=== PATIENT | female | born 1980 | race African-American/Black ===

== ENCOUNTER 2021-10-26 15:53 | Emergency (ER) | payer OTHER, SELFPAY ==
[2021-10-26 19:06] VITALS: BP 118/78; PULSE 97; RESP 18; TEMP 36.8; O2SAT 99; BMI 26.6
--- NOTE | 2021-10-26 21:50 | ED.EYEPROB ---
HPI - Eye Problem General Chief complaint: Eye Problems Stated complaint: r eye pain Time Seen by Provider: 10/26/21 17:24 Source: patient Mode of arrival: ambulatory Limitations: language barrier (Surinamese speaking only, court interpreter used) History of Present Illness HPI Narrative: 41-year-old female who presents emergency department for evaluation of right eye pain times 2 days. She states that she woke up yesterday with the pain in her right eye. She states that the eye was red. Today the redness got worse and the pain got worse. She also states that her vision is blurred. Patient does wear soft contact that she states that occasionally she worsen for greater than 24 hours. She denies any injury to her eye. She denied fever, chills, chest pain, shortness of breath, nausea, vomiting, headache. Related Data Previous Rx's Medication Instructions Recorded ciprofloxacin HCl 0.3 % eye drops 2 drp OPHTHALMIC (EYE) Q4H #5 ml 10/26/21 Allergies Allergy/AdvReac Type Severity Reaction Status Date / Time No Known Allergies Allergy Unverified 10/26/21 19:09 [No Known Allergies*] Review of Systems Review of Systems: Yes all other systems are reviewed and are negative [facility] Past Medical History [facility] Narrative: Past medical history: None. Past surgical history: Bilateral tubal ligation. Social history: She denies tobacco use, she occasionally drinks alcohol, she denies drug use. Medical History No known health problems Social History Social History Advance Directives: No Patient : No Physical Exam Vital Signs: Vital Signs: Last Vital Signs Temp 98.3 F 10/26/21 19:06 Pulse 97 10/26/21 19:06 Resp 18 10/26/21 19:06 BP 118/78 10/26/21 19:06 Pulse Ox 99 10/26/21 19:06 BMI result Body Mass Index 26.6 Const: Other: Uncomfortable secondary to right eye pain, cues right eye close General: cooperative and healthy appearing Orientation/consciousness: oriented to person Limitations: no limitations HENMT: Head: Yes normal to inspection, Yes normocephalic and Yes atraumatic Ears: external ears normal General nose exam: Normal external nose present Face and sinus: Yes normal facial exam Mouth: Normal oral and palatal mucosa present Teeth and gingiva: dentition normal Throat: Yes posterior oropharynx normal Eyes: Other: Pupils are equal round reactive to light, right sclera and conjunctiva are injected, no obvious foreign body seen on the patient's cornea with visual inspection and using a magnifying lens. Fluorescein dye was applied to the right eye in the patient had no obvious corneal abrasion that I could see using the magnifying lens. The patient's interocular pressures were 13 on the right eye and 11 on the left eye. EOM: EOMs intact bilaterally Neck: Neck: Yes normal visual inspection, Yes no lymphadenopathy, Yes no meningeal signs, Yes trachea midline and Yes supple Resp: Effort & Inspection: normal respiratory effort Neuro: General: oriented to person and no meningeal signs Cranial nerves: Yes CN's II-XII intact bilaterally Psych: Appearance: grossly normal Mental Status: mental status grossly normal Speech and movement: Normal speech and movement present Course Course Course Narrative: 41-year-old female who presents emergency department for evaluation right eye pain x2 days with redness of the right eye. The patient does not have any reported trauma to the eye but she does wear soft contact lenses and states sometime she wears them for greater than 24 hours. The patient's right eye did reveal injected sclera and conjunctiva. The visual inspection and inspection with a magnifying lens did not reveal any clear corneal abrasion or foreign body. Fluorescein dye did not reveal any increased uptake on the cornea. Interocular pressures were normal in both eyes. Visual acuities were unremarkable with correction. Patient most likely has injury to her cornea from wearing her contact lenses to long. She did get relief of her pain with tetracaine eyedrops to the right eye. Patient's pain was treated with Tylenol 975 mg orally and ibuprofen 600 mg orally. She was advised to keep her contacts out for 1 week and to follow-up with her eye doctor for re-evaluation in 2 days. She was given ciprofloxacin ophthalmic solution 0.3% 2 drops to the right eye 4 times a day for 7 days prophylactically to prevent infection. Discharge Plan Discharge Clinical Impression: Corneal abrasion Qualifiers: Encounter type: initial encounter Laterality: right Qualified Code(s): S05.01XA - Injury of conjunctiva and corneal abrasion without foreign body, right eye, initial encounter Patient Disposition: Home, Self-Care Instructions: Corneal Abrasion (ED) Additional Instructions: Your presentation is consistent with a corneal abrasion to your right eye most likely from wearing her contacts too long. Do not wear your contacts for 1 week. Use the ciprofloxacin ophthalmological drops 0.3%, 2 drops 4 every 4 hours while awake for 1 week to the right eye. Take ibuprofen 200 mg pills, 3 pills every 6 hours as needed for pain. Take Tylenol (acetaminophen) 500 mg pills, 2 pills every 4 to 6 hours as needed for pain. Follow-up with the eye doctor that gives you glasses and contacts for re-evaluation in 2 days to make sure that your corneal abrasion is improving and not getting worse. Please return to the emergency department if your symptoms get worse or if you develop any symptoms that are concerning to you. Prescriptions: New ciprofloxacin HCl 0.3 % drops 2 drp ophthalmic (eye) Q4H Qty: 5 RF: 0 Print Language: Surinamese
[2021-10-26] MEDS: Acetaminophen 325 MG TABLET 975 MG PO (22:20)
[2021-10-26] MEDS: Ibuprofen 600 MG TABLET PO (22:20)
[2021-10-26] MEDS: Tetracaine HCl/PF 0.5% Oph Sol 4 ML DROPS 3 DROP EYE-RIGHT (22:21)
[2021-10-26] MEDS: Fluorescein Sodium STRIP 1 STRIP EYE-BOTH (22:22)
== END 2021-10-26 22:59 | disposition home or self-care (01) ==
PROVIDERS: Emergency Provider Emergency Medicine Emergency Medical Services
DX: S05.91XA Unspecified injury of right eye and orbit, initial encounter (principal); X58.XXXA Exposure to other specified factors, initial encounter; Y93.9 Activity, unspecified; Y92.9 Unspecified place or not applicable; Y99.9 Unspecified external cause status
CPT/HCPCS: 99283

== ENCOUNTER 2023-01-28 21:44 | Emergency (ER) | payer OTHER, SELFPAY ==
[2023-01-28 22:02] VITALS: BP 123/78; PULSE 101; RESP 18; TEMP 36.8; O2SAT 100; BMI 26.6
--- NOTE | 2023-01-28 22:20 | ED_ITS ---
HPI - Psych General Chief Complaint: Psychiatric Symptoms <Micaela Alcocer MD - Last Filed: 01/28/23 22:23> Stated Complaint: Crisis <Micaela Alcocer MD - Last Filed: 01/28/23 22:23> Time Seen by Provider: 01/28/23 22:06 <Micaela Alcocer MD - Last Filed: 01/28/23 22:23> Source: patient <Micaela Alcocer MD - Last Filed: 01/28/23 22:23> Mode of arrival: ambulatory <Micaela Alcocer MD - Last Filed: 01/28/23 22:23> Limitations: no limitations <Micaela Alcocer MD - Last Filed: 01/28/23 22:23> History of Present Illness HPI Narrative: Patient comes in the emergency room complaining of depression. Patient states that she has had significant depression for approximately 2 months. Patient states that she started a new job at [employer], states that she does n ot know how to cope with certain situations at work. It was too stressful for her and she resigned recently. Patient had an appointment earlier today in the community, patient came voluntarily for an inpatient bed search. Patient complaining of suicidal thoughts, has considered overdosing with previous medications that she has been prescribed, no homicidal ideation. <Micaela Alcocer MD - Last Filed: 01/28/23 22:23> Related Data Home Medications: Home Medications Medication Instructions Recorded Confirmed No Known Home Meds 01/28/23 01/28/23 <Micaela Alcocer MD - Last Filed: 01/28/23 22:23> Allergies/Adverse Reactions: Allergies Allergy/AdvReac Type Severity Reaction Status Date / Time No Known Allergies Allergy Unverified 10/26/21 19:09 [No Known Allergies*] <Micaela Alcocer MD - Last Filed: 01/28/23 22:23> Review of Systems Review of Systems: Constitutional : No Weight loss, No Fever, No Chills, No Night Sweats, No Fatigue, No Malaise ENT/Mouth : No Hearing loss, No Ear Pain, No Nasal Congestion, No Sinus Pain, No Hoarseness, No sore throat, No Rhinorrhea, No Swallowing Difficulty Eyes: No Eye Pain, No Swelling, No Redness, No Foreign Body, No Discharge, No Vision Changes Cardiovascular : No Chest Pain, No SOB, No Dyspnea on Exertion, No Orthopnea, No Edema, No Palpitations Respiratory : No Cough, No Sputum, No Wheezing, No Smoke Exposure, No Dyspnea Gastrointestinal : No Nausea, No Vomiting, No Diarrhea, No Constipation, No abdominal Pain, No Hematochezia, No Melena Genitourinary : no irregular bleeding, No Dysuria, No Urinary Frequency, No Hematuria, No Urinary Incontinence, No Urgency, No Flank Pain, No Urinary Flow Changes, No Hesitancy Musculoskeletal : No joint pain, No Myalgias, No Joint Swelling Skin : No Skin Lesions, No rash Neuro : No Weakness, No Numbness, No Paresthesias, No Loss of Consciousness, No Dizziness, No Headache Psych : Complaining of depression, suicidal ideation, no homicidal ideation Heme/Lymph: No Bruising, No Bleeding,No Lymphadenopathy Endocrine : No Polyuria, No Polydipsia, No Temperature Intolerance <Micaela Alcocer MD - Last Filed: 01/28/23 22:23> [facility], [facility] Past Medical History Medical History: Medical History No known health problems <Micaela Alcocer MD - Last Filed: 01/28/23 22:23> Social History Social History: Social History Advance Directives: No Advance Directives Information Provided: No Healthcare Proxy: No Guardian: No <Micaela Alcocer MD - Last Filed: 01/28/23 22:23> Physical Exam Vital Signs: Vital Signs: Last Vital Signs Temp 98.1 F 01/29/23 14:58 Pulse 105 H 01/29/23 14:58 Resp 16 01/29/23 14:58 BP 102/68 01/29/23 14:58 Pulse Ox 98 01/29/23 14:58 O2 Del Method Room Air 01/29/23 14:58 BMI result Body Mass Index 26.6 <Micaela Alcocer MD - Last Filed: 01/28/23 22:23> Vital Signs: Last Vital Signs Temp 98.1 F 01/29/23 14:58 Pulse 105 H 01/29/23 14:58 Resp 16 01/29/23 14:58 BP 102/68 01/29/23 14:58 Pulse Ox 98 01/29/23 14:58 O2 Del Method Room Air 01/29/23 14:58 BMI result Body Mass Index 26.6 <Chaparrita Aragon MD - Last Filed: 01/29/23 16:55> Const: Other: Appearance: Alert. Oriented X3. No acute distress. Eyes: Pupils equal, round and reactive to light. ENT: Pharynx normal. Neck: Normal inspection. Neck supple. No lymph nodes noted. No crepitus CVS: Normal heart rate and rhythm. Pulses normal. Normal S1 and S2 Respiratory: No respiratory distress. Breath sounds normal. No Wheezing. No rales Abdomen: Soft and nontender. No rigidity. No distention. Skin: Skin warm and dry. Normal skin color. Normal skin turgor. Extremities: No lower extremity edema. No Lacerations. No Rash Neuro: Oriented X 3. No motor deficit. No sensory deficit. Moving all extremities. No slurred speech. CN 2 through 12 grossly intact Psych: calm, cooperative, flat affect <Micaela Alcocer MD - Last Filed: 01/28/23 22:23> Course Course Course Narrative: -basic labs pending -care team consult pending, per patient's nurse, seems that it has been arranged for the patient to be admitted when a bed becomes available, voluntary bed search, patient on a Section 12 -physician observation started at 12:22 <Micaela Alcocer MD - Last Filed: 01/28/23 22:23> Reevaluation(s) Reevaluation #1: Informed by staff that patient is now complaining of chest pain, I reviewed all investigations and I have not identified either risk factors for cause for patient's current symptoms. Will proceed with EKG but otherwise feel this may be related with anxiety. <Chaparrita Aragon MD - Last Filed: 01/29/23 16:55> Time: 16:45 <Chaparrita Aragon MD - Last Filed: 01/29/23 16:55> Reevaluation #2: I reviewed the EKG: Normal sinus rhythm, HR-89, no STEMI, NE/QRS/QTC is within normal limits. Patient is otherwise hemodynamically stable for transfer to [facility]. <Chaparrita Aragon MD - Last Filed: 01/29/23 16:55> Time: 16:54 <Chaparrita Aragon MD - Last Filed: 01/29/23 16:55> Medical Decision Making Lab Data Result Diagrams: 01/28/23 22:32 01/28/23 22:32 <Micaela Alcocer MD - Last Filed: 01/28/23 22:23> Labs: Lab Results 01/28/23 01/28/23 01/28/23 Range/Units 22:18 22:18 22:18 WBC (4.8-10.8) X10*3/uL RBC (4.20-5.50) X10*6/uL Hgb (12.0-16.0) g/dl Hct (37.0-47.0) % MCV (80.0-98.0) fL MCH (27.0-33.0) pg MCHC (31.0-35.0) g/dl RDW (11.0-16.0) % Plt Count (160-400) X10*3/uL MPV (9.4-12.3) fL Immature Gran % (Auto) (0.0-0.4) % Neut % (Auto) (45-73) % Lymph % (Auto) (20-40) % [place] % (Auto) (2-11) % Eos % (Auto) (0-4) % Baso % (Auto) (0-2) % Lymph # (Auto) (1.2-4.9) X10*3/uL [place] # (Auto) (0.1-1.2) X10*3/uL Eos # (Auto) (0.0-0.4) X10*3/uL Baso # (Auto) (0.0-0.2) X10*3/uL Abs Immat Gran (auto) (0.00-0.03) X10*3/uL Absolute Neuts (auto) (2.0-8.3) x10*3/uL Absolute Nucleated RBC (0.0-0.012) X10*3/uL Nucleated RBC % (auto) (0.0-0.2) /100WBC Sodium (135-145) mmol/L Potassium (3.3-5.1) mmol/L Chloride (96-108) mmol/L Carbon Dioxide (22-29) mmol/L Anion Gap (12-20) BUN (9-16) mg/dL Creatinine (0.5-1.4) mg/dL Estim Creat Clear Calc Estimated GFR Random Glucose (60-115) mg/dL Calcium (8.4-10.2) mg/dL Total Bilirubin (0.0-1.0) mg/dL AST (5-31) U/L ALT (0-31) U/L Alkaline Phosphatase (39-117) U/L Total Protein (6.5-8.0) g/dL Albumin (3.5-5.0) g/dL Urine Color Yellow Urine Appearance Clear Urine pH 5.5 (5.0-9.0) Ur Specific [place] 1.025 (1.005-1.025) Urine Protein Negative (Neg-Trace) mg/dL Urine Glucose (UA) Negative (Negative) mg/dL Urine Ketones Negative (Negative) mg/dL Urine Blood Negative (Negative) Urine Nitrite Negative (Negative) Ur Leukocyte Esterase Negative (Negative) Urine Test (NEGATIVE) Salicylates (15-30) mg/dL Urine Opiates Screen Not Detected (Not Detect) Urine Fentanyl Screen Not Detected (Not Detect) Acetaminophen (<30) mcg/mL Ur Barbiturates Screen Not Detected (Not Detect) Ur Phencyclidine Scrn Not Detected (Not Detect) Ur Amphetamines Screen Not Detected (Not Detect) U Benzodiazepines Scrn POSITIVE H (Not Detect) Urine Cocaine Screen Not Detected (Not Detect) U Marijuana (THC) Screen Not Detected (Not Detect) Ethyl Alcohol mg/dL COVID-19 ([facility]) Negative (Negative) COVID-19 Clin Com See Note 01/28/23 01/28/23 01/28/23 Range/Units 22:18 22:32 22:32 WBC 6.3 (4.8-10.8) X10*3/uL RBC 5.51 H (4.20-5.50) X10*6/uL Hgb 13.3 (12.0-16.0) g/dl Hct 41.1 (37.0-47.0) % MCV 74.6 L (80.0-98.0) fL MCH 24.1 L (27.0-33.0) pg MCHC 32.4 (31.0-35.0) g/dl RDW 14.3 (11.0-16.0) % Plt Count 306 (160-400) X10*3/uL MPV 9.6 (9.4-12.3) fL Immature Gran % (Auto) 0.3 (0.0-0.4) % Neut % (Auto) 53.9 (45-73) % Lymph % (Auto) 34.5 (20-40) % [place] % (Auto) 7.8 (2-11) % Eos % (Auto) 2.1 (0-4) % Baso % (Auto) 1.4 (0-2) % Lymph # (Auto) 2.2 (1.2-4.9) X10*3/uL [place] # (Auto) 0.5 (0.1-1.2) X10*3/uL Eos # (Auto) 0.1 (0.0-0.4) X10*3/uL Baso # (Auto) 0.1 (0.0-0.2) X10*3/uL Abs Immat Gran (auto) 0.02 (0.00-0.03) X10*3/uL Absolute Neuts (auto) 3.4 (2.0-8.3) x10*3/uL Absolute Nucleated RBC 0.000 (0.0-0.012) X10*3/uL Nucleated RBC % (auto) 0.0 (0.0-0.2) /100WBC Sodium 142 (135-145) mmol/L Potassium 3.4 (3.3-5.1) mmol/L Chloride 109 H (96-108) mmol/L Carbon Dioxide 22 (22-29) mmol/L Anion Gap 14 (12-20) BUN 10 (9-16) mg/dL Creatinine 0.90 (0.5-1.4) mg/dL Estim Creat Clear Calc 79.1 Estimated GFR > 60 Random Glucose 144 H (60-115) mg/dL Calcium 9.6 (8.4-10.2) mg/dL Total Bilirubin 0.3 (0.0-1.0) mg/dL AST 16 (5-31) U/L ALT 10 (0-31) U/L Alkaline Phosphatase 44 (39-117) U/L Total Protein 7.5 (6.5-8.0) g/dL Albumin 4.4 (3.5-5.0) g/dL Urine Color Urine Appearance Urine pH (5.0-9.0) Ur Specific [place] (1.005-1.025) Urine Protein (Neg-Trace) mg/dL Urine Glucose (UA) (Negative) mg/dL Urine Ketones (Negative) mg/dL Urine Blood (Negative) Urine Nitrite (Negative) Ur Leukocyte Esterase (Negative) Urine Test NEGATIVE (NEGATIVE) Salicylates (15-30) mg/dL Urine Opiates Screen (Not Detect) Urine Fentanyl Screen (Not Detect) Acetaminophen (<30) mcg/mL Ur Barbiturates Screen (Not Detect) Ur Phencyclidine Scrn (Not Detect) Ur Amphetamines Screen (Not Detect) U Benzodiazepines Scrn (Not Detect) Urine Cocaine Screen (Not Detect) U Marijuana (THC) Screen (Not Detect) Ethyl Alcohol mg/dL COVID-19 ([facility]) (Negative) COVID-19 Clin Com 01/28/23 01/28/23 Range/Units 22:32 22:32 WBC (4.8-10.8) X10*3/uL RBC (4.20-5.50) X10*6/uL Hgb (12.0-16.0) g/dl Hct (37.0-47.0) % MCV (80.0-98.0) fL MCH (27.0-33.0) pg MCHC (31.0-35.0) g/dl RDW (11.0-16.0) % Plt Count (160-400) X10*3/uL MPV (9.4-12.3) fL Immature Gran % (Auto) (0.0-0.4) % Neut % (Auto) (45-73) % Lymph % (Auto) (20-40) % [place] % (Auto) (2-11) % Eos % (Auto) (0-4) % Baso % (Auto) (0-2) % Lymph # (Auto) (1.2-4.9) X10*3/uL [place] # (Auto) (0.1-1.2) X10*3/uL Eos # (Auto) (0.0-0.4) X10*3/uL Baso # (Auto) (0.0-0.2) X10*3/uL Abs Immat Gran (auto) (0.00-0.03) X10*3/uL Absolute Neuts (auto) (2.0-8.3) x10*3/uL Absolute Nucleated RBC (0.0-0.012) X10*3/uL Nucleated RBC % (auto) (0.0-0.2) /100WBC Sodium (135-145) mmol/L Potassium (3.3-5.1) mmol/L Chloride (96-108) mmol/L Carbon Dioxide (22-29) mmol/L Anion Gap (12-20) BUN (9-16) mg/dL Creatinine (0.5-1.4) mg/dL Estim Creat Clear Calc Estimated GFR Random Glucose (60-115) mg/dL Calcium (8.4-10.2) mg/dL Total Bilirubin (0.0-1.0) mg/dL AST (5-31) U/L ALT (0-31) U/L Alkaline Phosphatase (39-117) U/L Total Protein (6.5-8.0) g/dL Albumin (3.5-5.0) g/dL Urine Color Urine Appearance Urine pH (5.0-9.0) Ur Specific [place] (1.005-1.025) Urine Protein (Neg-Trace) mg/dL Urine Glucose (UA) (Negative) mg/dL Urine Ketones (Negative) mg/dL Urine Blood (Negative) Urine Nitrite (Negative) Ur Leukocyte Esterase (Negative) Urine Test (NEGATIVE) Salicylates < 5.0 L (15-30) mg/dL Urine Opiates Screen (Not Detect) Urine Fentanyl Screen (Not Detect) Acetaminophen < 17 (<30) mcg/mL Ur Barbiturates Screen (Not Detect) Ur Phencyclidine Scrn (Not Detect) Ur Amphetamines Screen (Not Detect) U Benzodiazepines Scrn (Not Detect) Urine Cocaine Screen (Not Detect) U Marijuana (THC) Screen (Not Detect) Ethyl Alcohol < 10 mg/dL COVID-19 ([facility]) (Negative) COVID-19 Clin Com <Micaela Alcocer MD - Last Filed: 01/28/23 22:23> Lab Results 01/28/23 01/28/23 01/28/23 Range/Units 22:18 22:18 22:18 WBC (4.8-10.8) X10*3/uL RBC (4.20-5.50) X10*6/uL Hgb (12.0-16.0) g/dl Hct (37.0-47.0) % MCV (80.0-98.0) fL MCH (27.0-33.0) pg MCHC (31.0-35.0) g/dl RDW (11.0-16.0) % Plt Count (160-400) X10*3/uL MPV (9.4-12.3) fL Immature Gran % (Auto) (0.0-0.4) % Neut % (Auto) (45-73) % Lymph % (Auto) (20-40) % [place] % (Auto) (2-11) % Eos % (Auto) (0-4) % Baso % (Auto) (0-2) % Lymph # (Auto) (1.2-4.9) X10*3/uL [place] # (Auto) (0.1-1.2) X10*3/uL Eos # (Auto) (0.0-0.4) X10*3/uL Baso # (Auto) (0.0-0.2) X10*3/uL Abs Immat Gran (auto) (0.00-0.03) X10*3/uL Absolute Neuts (auto) (2.0-8.3) x10*3/uL Absolute Nucleated RBC (0.0-0.012) X10*3/uL Nucleated RBC % (auto) (0.0-0.2) /100WBC Sodium (135-145) mmol/L Potassium (3.3-5.1) mmol/L Chloride (96-108) mmol/L Carbon Dioxide (22-29) mmol/L Anion Gap (12-20) BUN (9-16) mg/dL Creatinine (0.5-1.4) mg/dL Estim Creat Clear Calc Estimated GFR Random Glucose (60-115) mg/dL Calcium (8.4-10.2) mg/dL Total Bilirubin (0.0-1.0) mg/dL AST (5-31) U/L ALT (0-31) U/L Alkaline Phosphatase (39-117) U/L Total Protein (6.5-8.0) g/dL Albumin (3.5-5.0) g/dL Urine Color Yellow Urine Appearance Clear Urine pH 5.5 (5.0-9.0) Ur Specific [place] 1.025 (1.005-1.025) Urine Protein Negative (Neg-Trace) mg/dL Urine Glucose (UA) Negative (Negative) mg/dL Urine Ketones Negative (Negative) mg/dL Urine Blood Negative (Negative) Urine Nitrite Negative (Negative) Ur Leukocyte Esterase Negative (Negative) Urine Test (NEGATIVE) Salicylates (15-30) mg/dL Urine Opiates Screen Not Detected (Not Detect) Urine Fentanyl Screen Not Detected (Not Detect) Acetaminophen (<30) mcg/mL Ur Barbiturates Screen Not Detected (Not Detect) Ur Phencyclidine Scrn Not Detected (Not Detect) Ur Amphetamines Screen Not Detected (Not Detect) U Benzodiazepines Scrn POSITIVE H (Not Detect) Urine Cocaine Screen Not Detected (Not Detect) U Marijuana (THC) Screen Not Detected (Not Detect) Ethyl Alcohol mg/dL COVID-19 ([facility]) Negative (Negative) COVID-19 Clin Com See Note 01/28/23 01/28/23 01/28/23 Range/Units 22:18 22:32 22:32 WBC 6.3 (4.8-10.8) X10*3/uL RBC 5.51 H (4.20-5.50) X10*6/uL Hgb 13.3 (12.0-16.0) g/dl Hct 41.1 (37.0-47.0) % MCV 74.6 L (80.0-98.0) fL MCH 24.1 L (27.0-33.0) pg MCHC 32.4 (31.0-35.0) g/dl RDW 14.3 (11.0-16.0) % Plt Count 306 (160-400) X10*3/uL MPV 9.6 (9.4-12.3) fL Immature Gran % (Auto) 0.3 (0.0-0.4) % Neut % (Auto) 53.9 (45-73) % Lymph % (Auto) 34.5 (20-40) % [place] % (Auto) 7.8 (2-11) % Eos % (Auto) 2.1 (0-4) % Baso % (Auto) 1.4 (0-2) % Lymph # (Auto) 2.2 (1.2-4.9) X10*3/uL [place] # (Auto) 0.5 (0.1-1.2) X10*3/uL Eos # (Auto) 0.1 (0.0-0.4) X10*3/uL Baso # (Auto) 0.1 (0.0-0.2) X10*3/uL Abs Immat Gran (auto) 0.02 (0.00-0.03) X10*3/uL Absolute Neuts (auto) 3.4 (2.0-8.3) x10*3/uL Absolute Nucleated RBC 0.000 (0.0-0.012) X10*3/uL Nucleated RBC % (auto) 0.0 (0.0-0.2) /100WBC Sodium 142 (135-145) mmol/L Potassium 3.4 (3.3-5.1) mmol/L Chloride 109 H (96-108) mmol/L Carbon Dioxide 22 (22-29) mmol/L Anion Gap 14 (12-20) BUN 10 (9-16) mg/dL Creatinine 0.90 (0.5-1.4) mg/dL Estim Creat Clear Calc 79.1 Estimated GFR > 60 Random Glucose 144 H (60-115) mg/dL Calcium 9.6 (8.4-10.2) mg/dL Total Bilirubin 0.3 (0.0-1.0) mg/dL AST 16 (5-31) U/L ALT 10 (0-31) U/L Alkaline Phosphatase 44 (39-117) U/L Total Protein 7.5 (6.5-8.0) g/dL Albumin 4.4 (3.5-5.0) g/dL Urine Color Urine Appearance Urine pH (5.0-9.0) Ur Specific [place] (1.005-1.025) Urine Protein (Neg-Trace) mg/dL Urine Glucose (UA) (Negative) mg/dL Urine Ketones (Negative) mg/dL Urine Blood (Negative) Urine Nitrite (Negative) Ur Leukocyte Esterase (Negative) Urine Test NEGATIVE (NEGATIVE) Salicylates (15-30) mg/dL Urine Opiates Screen (Not Detect) Urine Fentanyl Screen (Not Detect) Acetaminophen (<30) mcg/mL Ur Barbiturates Screen (Not Detect) Ur Phencyclidine Scrn (Not Detect) Ur Amphetamines Screen (Not Detect) U Benzodiazepines Scrn (Not Detect) Urine Cocaine Screen (Not Detect) U Marijuana (THC) Screen (Not Detect) Ethyl Alcohol mg/dL COVID-19 ([facility]) (Negative) COVID-19 Clin Com 01/28/23 01/28/23 Range/Units 22:32 22:32 WBC (4.8-10.8) X10*3/uL RBC (4.20-5.50) X10*6/uL Hgb (12.0-16.0) g/dl Hct (37.0-47.0) % MCV (80.0-98.0) fL MCH (27.0-33.0) pg MCHC (31.0-35.0) g/dl RDW (11.0-16.0) % Plt Count (160-400) X10*3/uL MPV (9.4-12.3) fL Immature Gran % (Auto) (0.0-0.4) % Neut % (Auto) (45-73) % Lymph % (Auto) (20-40) % [place] % (Auto) (2-11) % Eos % (Auto) (0-4) % Baso % (Auto) (0-2) % Lymph # (Auto) (1.2-4.9) X10*3/uL [place] # (Auto) (0.1-1.2) X10*3/uL Eos # (Auto) (0.0-0.4) X10*3/uL Baso # (Auto) (0.0-0.2) X10*3/uL Abs Immat Gran (auto) (0.00-0.03) X10*3/uL Absolute Neuts (auto) (2.0-8.3) x10*3/uL Absolute Nucleated RBC (0.0-0.012) X10*3/uL Nucleated RBC % (auto) (0.0-0.2) /100WBC Sodium (135-145) mmol/L Potassium (3.3-5.1) mmol/L Chloride (96-108) mmol/L Carbon Dioxide (22-29) mmol/L Anion Gap (12-20) BUN (9-16) mg/dL Creatinine (0.5-1.4) mg/dL Estim Creat Clear Calc Estimated GFR Random Glucose (60-115) mg/dL Calcium (8.4-10.2) mg/dL Total Bilirubin (0.0-1.0) mg/dL AST (5-31) U/L ALT (0-31) U/L Alkaline Phosphatase (39-117) U/L Total Protein (6.5-8.0) g/dL Albumin (3.5-5.0) g/dL Urine Color Urine Appearance Urine pH (5.0-9.0) Ur Specific [place] (1.005-1.025) Urine Protein (Neg-Trace) mg/dL Urine Glucose (UA) (Negative) mg/dL Urine Ketones (Negative) mg/dL Urine Blood (Negative) Urine Nitrite (Negative) Ur Leukocyte Esterase (Negative) Urine Test (NEGATIVE) Salicylates < 5.0 L (15-30) mg/dL Urine Opiates Screen (Not Detect) Urine Fentanyl Screen (Not Detect) Acetaminophen < 17 (<30) mcg/mL Ur Barbiturates Screen (Not Detect) Ur Phencyclidine Scrn (Not Detect) Ur Amphetamines Screen (Not Detect) U Benzodiazepines Scrn (Not Detect) Urine Cocaine Screen (Not Detect) U Marijuana (THC) Screen (Not Detect) Ethyl Alcohol < 10 mg/dL COVID-19 ([facility]) (Negative) COVID-19 Clin Com <Chaparrita Aragon MD - Last Filed: 01/29/23 16:55> Discharge Plan Discharge Clinical Impression: Depression <Micaela Alcocer MD - Last Filed: 01/28/23 22:23> Patient Disposition: Xfer Other <Micaela Alcocer MD - Last Filed: 01/28/23 22:23> Instructions: Depression (ED) <Micaela Alcocer MD - Last Filed: 01/28/23 22:23> Additional Instructions: Please return to the ER for any worsening symptoms. <Micaela Alcocer MD - Last Filed: 01/28/23 22:23> Prescriptions: No Action No Known Home Meds <Micaela Alcocer MD - Last Filed: 01/28/23 22:23> Interventions: [place]-Suicide Risk Severity Scale Last Done: 01/29/23 14:36 <Micaela Alcocer MD - Last Filed: 01/28/23 22:23>
[2023-01-28 22:29] LABS: UPreg QC Valid YES; Urine Pregnancy NEGATIVE (NEGATIVE)
[2023-01-28 22:31] LABS: Appearance Urine Clear; Color Urine Yellow; Glucose Urine UA Negative (Negative); Leukocyte Esterase Urine Negative (Negative); Nitrite Urine Negative (Negative); PH 5.5 (5.0-9.0); Specific Gravity - Urine 1.025 (1.005-1.025); Urine Blood Negative (Negative); Urine Ketones Negative (Negative); Urine Protein Negative (Neg-Trace)
[2023-01-28 22:37] LABS: MANUAL DIFF FLAG NO
[2023-01-28 22:39] LABS: Basophils Absolute Auto 0.1 X10*3/uL (0.0-0.2); Basophils Percent Auto 1.4 % (0-2); Eosinophils Absolute Auto 0.1 X10*3/uL (0.0-0.4); Eosinophils Percent Auto 2.1 % (0-4); Hematocrit 41.1 % (37.0-47.0); Hemoglobin 13.3 g/dl (12.0-16.0); Imm Gran Abs Auto 0.02 X10*3/uL (0.00-0.03); Imm Gran Pct Auto 0.3 % (0.0-0.4); Lymphocytes Absolute Auto 2.2 X10*3/uL (1.2-4.9); Lymphocytes Percent Auto 34.5 % (20-40); Mean Corpuscular HGB Conc 32.4 g/dl (31.0-35.0); Mean Corpuscular Hemoglobin 24.1 pg (27.0-33.0); Mean Corpuscular Volume 74.6 fL (80.0-98.0); Mean Platelet Volume 9.6 fL (9.4-12.3); Monocytes Absolute Auto 0.5 X10*3/uL (0.1-1.2); Monocytes Percent Auto 7.8 % (2-11); Neutrophils Absolute Auto 3.4 x10*3/uL (2.0-8.3); Neutrophils Percent Auto 53.9 % (45-73); Platelet Count 306 X10*3/uL (160-400); Red Blood Count 5.51 X10*6/uL (4.20-5.50); Red Cell Distribution Width 14.3 % (11.0-16.0); White Blood Count 6.3 X10*3/uL (4.8-10.8)
[2023-01-28 22:39] LABS: Amphetamine Screen Urine Not Detected (Not Detect); Barbiturates, Urine Not Detected (Not Detect); Benzodiazepines Screen Urine POSITIVE (Not Detect); Cannabinoid Screen Urine Not Detected (Not Detect); Cocaine Screen Urine Not Detected (Not Detect); Fentanyl, urine Not Detected (Not Detect); Opiate Screen Urine Not Detected (Not Detect); Phencyclidine Screen Urine Not Detected (Not Detect)
[2023-01-28 22:42] LABS: COVID-19 Test Negative (Negative); IDNOW Serial# 55D5AD1C
[2023-01-28 22:52] LABS: Ethanol < 10 mg/dL
[2023-01-28 22:55] LABS: Alanine Aminotransferase 10 U/L (0-31); Albumin Level 4.4 g/dL (3.5-5.0); Alkaline Phosphatase 44 U/L (39-117); Anion Gap 14 (12-20); Aspartate Amino Transferase 16 U/L (5-31); Bilirubin Total 0.3 mg/dL (0.0-1.0); Blood Urea Nitrogen 10 mg/dL (9-16); Calcium 9.6 mg/dL (8.4-10.2); Carbon Dioxide 22 mmol/L (22-29); Chloride 109 mmol/L (96-108); Creatinine Clr Calc Pharmacy 79.1; Estimated Glomerular Filt Rate > 60; Glucose Random 144 mg/dL (60-115); Potassium 3.4 mmol/L (3.3-5.1); Sodium 142 mmol/L (135-145); Total Protein 7.5 g/dL (6.5-8.0)
[2023-01-28 22:57] LABS: Acetaminophen LAB < 17 mcg/mL (<30); Salicylate < 5.0 mg/dL (15-30)
--- NOTE | 2023-01-29 01:13 | PC.NURSE ---
Patient is in bed appears sleeping, no distress observed/reported, behavior non concerning, med rec completed/patient is currently not on any home medication, disposition per [facility] is voluntary inpatient search, VSS, will continue to monitor.
[2023-01-29 03:56] VITALS: BP 106/83; PULSE 91; RESP 15; TEMP 36.4; O2SAT 100
--- NOTE | 2023-01-29 14:56 | MHC.CARE ---
Pt was accepted for [facility] inpt unit for admission today. Facility will call to complete N2N & would like pt to arrive @1700. [facility] [address] [place] [id number] Carleen Patino Accepting Unit is [address] [place] [address]
[2023-01-29 14:58] VITALS: BP 102/68; PULSE 105; RESP 16; TEMP 36.7; O2SAT 98
--- NOTE | 2023-01-29 15:04 | PC.NURSE ---
patient primarily tamazight speaking. calm and cooperative with staff. report called to Stu MARRERO.
--- NOTE | 2023-01-29 16:37 | ECG_ITS ---
Test Reason : CHEST PAIN Blood Pressure : / mmHG Vent. Rate : 089 BPM Atrial Rate : 089 BPM P-R Int : 136 ms QRS Dur : 084 ms QT Int : 354 ms P-R-T Axes : 051 046 036 degrees QTc Int : 430 ms Normal sinus rhythm Normal ECG When compared with ECG of 14-JUL-2017 16:13, T wave inversion no longer evident in Inferior leads Referred By: Chaparrita Aragon Electronically Signed By:MILTON LOUISE MD
== END 2023-01-29 16:57 | disposition other institution (70) ==
PROVIDERS: Emergency Provider Emergency Medicine
DX: F32.A Depression, unspecified (principal); R45.851 Suicidal ideations; F41.9 Anxiety disorder, unspecified; Z20.822 Contact with and (suspected) exposure to COVID-19; Z79.899 Other long term (current) drug therapy
CPT/HCPCS: 36415; 80053; 80143; 80179; 80307; 81003; 81025; 82077; 85025; 87635; 93005; 99284; 99285; S9485

== ENCOUNTER 2023-05-15 18:53 | Inpatient (IN) | payer OTHER, SELFPAY ==
[2023-05-15 19:00] VITALS: BP 109/67; PULSE 78; RESP 17; TEMP 37; O2SAT 99
--- NOTE | 2023-05-15 22:23 | PC.ADMIT ---
pt is a 42 year old female who presented to [facility] with SI and intent to overdose on klopnopin. pt tox screen was negative. pt is [place] spekaing only. pt has a PMH of inpatient hospilization, rotator cuff injury, depressive disorder, and anxiety disorder. during the admission, pt signed all legals with help of a financial engineer and did not have any questions at the time. start treatment plan and promote safety
[2023-05-16 08:15] LABS: Alanine Aminotransferase 7 U/L (0-31); Albumin Level 3.5 g/dL (3.5-5.0); Alkaline Phosphatase 43 U/L (39-117); Anion Gap 12 (12-20); Aspartate Amino Transferase 13 U/L (5-31); Bilirubin Total 0.4 mg/dL (0.0-1.0); Blood Urea Nitrogen 10 mg/dL (9-16); Calcium 9.2 mg/dL (8.4-10.2); Carbon Dioxide 24 mmol/L (22-29); Chloride 110 mmol/L (96-108); Cholesterol 222 mg/dL; Estimated Glomerular Filt Rate > 60; Glucose Fasting 78 mg/dL (60-99); HDL Cholesterol 65 mg/dL; LDL Cholesterol Calculated 147 mg/dl; Sodium 142 mmol/L (135-145); Total Protein 6.4 g/dL (6.5-8.0); Triglycerides 50 mg/dL
[2023-05-16 08:30] LABS: Free T4 (Free Thyroxine) 0.87 ng/dL (0.71-1.85); Thyroid Stimulating Hormone 1.97 uIU/mL (0.32-4.0)
[2023-05-16 09:09] VITALS: BP 115/76; PULSE 83; RESP 18; TEMP 36.4; O2SAT 97
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
[2023-05-16 13:42] VITALS: RESP 18
[2023-05-16] MEDS: Propranolol HCL 10 MG TABLET PO (14:26)
[2023-05-16 14:32] VITALS: BP 103/65; PULSE 80
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
[2023-05-16 18:00] VITALS: BP 98/68; PULSE 94; TEMP 36.9; O2SAT 95
[2023-05-16] MEDS: traZODone HCL 50 MG TABLET PO (21:35)
[2023-05-17 06:00] VITALS: BP 114/67; PULSE 62; RESP 16; TEMP 36.2; O2SAT 100
[2023-05-17] MEDS: DULoxetine HCl 30 MG CAPSULE.DR PO (08:48)
[2023-05-17] MEDS: Sertraline HCL 50 MG TABLET PO (08:49)
--- NOTE | 2023-05-17 10:21 | HO.PSYCHPN ---
Subjective Subjective Date of Service: 05/17/23 Reason For Visit: Unspecified Depressive Disorder Generalized Anxiet Subjective Notes: Conditional Voluntary Healthcare Proxy: No Guardianship: No Medical Problems Affecting Mental Status: No Interim History: 42 yo HF reports slept ok, anxiety still a struggle still depressed, but tolerating lower sertralin and start of duloxetine today- some si thoughts, no plans, no panic thinks lorazepam somewhat helpful for anxiety encouraged to try propranlol Medication Compliance: Yes Side effects from medications: No Attending Groups: Intermittent Review of Systems Acute medical concerns: No Medical Review of Systems: unchanged Mental Status Exam Mental Status Exam Patient Appearance: Well Grooomed and Appropriate Patient Orientation: Person, Place, Time and Situation Level of Consciousness: Awake Patient Behavior: Appropriate Mood Description: Anxious Patient Cognition Impaired: No Ability to Follow Directions: Good Speech Pattern: Clear Hallucinations: None Delusions: Not Present Thought Process: Intact Thought Content: positive for Suicidal Ideation Depressive Symptoms: Increased Anxiety (ongoing not increased,), Diff. Making Decisions, Muscle Tension and Loss of Energy Judgement: Fair Diagnostics Vital Signs (24Hr): Vital Signs - 24 hr 05/16/23 13:42 05/16/23 14:32 05/16/23 18:00 Temperature 98.4 F Pulse Rate 80 94 Respiratory Rate 18 Blood Pressure 103/65 98/68 Pulse Oximetry 95 Oxygen Delivery Method Room Air Labs 05/16/23 07:29 Labs: Laboratory Results - last 48 hr 05/16/23 05/16/23 05/16/23 07:29 07:29 07:29 Sodium 142 Potassium 4.0 Chloride 110 H Carbon Dioxide 24 Anion Gap 12 BUN 10 Creatinine 0.75 Estim Creat Clear Calc TNP Estimated GFR > 60 Fasting Glucose 78 Estimat Average Glucose 94 Hemoglobin A1c % 4.9 Calcium 9.2 Total Bilirubin 0.4 AST 13 ALT 7 Alkaline Phosphatase 43 Total Protein 6.4 L Albumin 3.5 Triglycerides 50 Cholesterol 222 LDL Cholesterol, Calc 147 HDL Cholesterol 65 Vitamin B12 464 Folate 6.0 TSH 1.97 Free T4 0.87 Medications Medications Current Medications Acetaminophen (Acetaminophen 325 Mg Tablet) 650 mg PO Q6H PRN PRN Reason: Headache/Pain Mild Scale (1-3) Al Hydroxide/Mg Hydroxide (Magnesium Hydrox/Alum Hydrox 30 Ml Oral.Susp) 30 ml PO Q6H PRN PRN Reason: Heartburn/Nausea Duloxetine HCl (Duloxetine Hcl 30 Mg Capsule.Dr) 30 mg PO DAILY [facility] Last Admin: 05/17/23 08:48 Dose: 30 mg Hydroxyzine HCl (Hydroxyzine Hcl 25 Mg Tablet) 25 mg PO Q6H PRN PRN Reason: Anxiety Lorazepam (Lorazepam 1 Mg Tablet) 1 mg PO Q6H PRN PRN Reason: Anxiety Magnesium Hydroxide (Milk Of Magnesia 30 Ml Oral.Susp) 30 ml PO DAILY PRN PRN Reason: Constipation Melatonin (Melatonin 3 Mg Tablet) 9 mg PO BEDTIME PRN PRN Reason: Insomnia Nicotine Polacrilex (Nicotine Polacrilex 2 Mg Gum) 4 mg BUCCAL Q2H PRN PRN Reason: Nicotine Cravings Propranolol HCl (Propranolol Hcl 10 Mg Tablet) 10 mg PO TID PRN; Protocol PRN Reason: anxiety Last Admin: 05/16/23 14:26 Dose: 10 mg Sertraline HCl (Sertraline Hcl 50 Mg Tablet) 50 mg PO DAILY [facility] Last Admin: 05/17/23 08:49 Dose: 50 mg Trazodone HCl (Trazodone Hcl 50 Mg Tablet) 50 mg PO BEDTIME MRX1 [facility] Last Admin: 05/16/23 22:06 Dose: Not Given Allergies Allergies Allergy/AdvReac Type Severity Reaction Status Date / Time lamotrigine [From Lamictal] AdvReac Anaphylaxis Verified 05/15/23 22:31 Assessment & Plan Assessment & Plan (1) Suicidal behavior: Status: Acute Code(s): R45.89 - Other symptoms and signs involving emotional state Assessment and Plan: mileu therapy and groups SW to contact outpt providers- pt reports therapy on Thursday next 05/17 ongoing si thoughts (2) Depression: Status: Acute Code(s): F32.A - Depression, unspecified Assessment and Plan: taper and dc sertraline trial of duloxetine (different class antidepressant) dc clonazepam trial of ativan /or propranlol for panic tolerated first dose of duloxetine in 3 days inc dose (3) Panic disorder: Status: Acute Code(s): F41.0 - Panic disorder [episodic paroxysmal anxiety] Assessment and Plan: ativan somewhat helpful likely will also need propranlol combined Plan 1. adjust medications 2. get [facility] record 3. SW to contact out pt providers and collateral from family 4 group therapy 05/17 CTP Patient educated on: medication risk/benefits and therapeutic strategies Informed Consent: understands and further education needed Reason for continued inpatient stay Substantial Risk for: harm to self and rapid decompensation Time Spent With Patient Time: Total time managing care of this patient today ____ minutes.
[2023-05-17] MEDS: Acetaminophen 325 MG TABLET 650 MG PO (10:40)
[2023-05-17] MEDS: LORazepam 1 MG TABLET PO ×2 (11:28→19:39)
[2023-05-17 16:45] VITALS: BP 130/67; PULSE 95; TEMP 36.1
[2023-05-17] MEDS: traZODone HCL 50 MG TABLET PO (21:31)
[2023-05-18 06:00] VITALS: BP 110/68; PULSE 81; RESP 16; TEMP 36.4; O2SAT 96
[2023-05-18] MEDS: Acetaminophen 325 MG TABLET 650 MG PO (06:49)
[2023-05-18] MEDS: DULoxetine HCl 30 MG CAPSULE.DR PO (08:40)
[2023-05-18] MEDS: Sertraline HCL 50 MG TABLET PO (08:40)
[2023-05-18] MEDS: LORazepam 1 MG TABLET PO ×2 (11:23→21:16)
[2023-05-18] MEDS: hydrOXYzine HCL 25 MG TABLET PO ×2 (14:41→21:16)
[2023-05-18 18:00] VITALS: BP 108/69; PULSE 84; RESP 20; TEMP 37.3; O2SAT 99
--- NOTE | 2023-05-18 18:00 | P.PNPSI_ITS ---
Subjective Subjective Date of Service: 05/18/23 Reason For Visit: Unspecified Depressive Disorder Generalized Anxiet Subjective Notes: Conditional Voluntary Healthcare Proxy: No Guardianship: No Medical Problems Affecting Mental Status: No Interim History: Met with pt, Blas WEBBER and [facility] [place] [facility]. Pt reports depression for a few months, feeling down, low energy, prefers to be alone, however when alone reports she suffers more. Reports admit to [facility] 8 weeks ago for depression, SI. She spent ~14 days there and continued with OP care. She then started to feel anxious, especially at night-she would awaken, want to run away, cried. [employer] she was having a difficult day and overtook her medications, until she realized she had taken 12-15 tabs. She became frightened and called for help. Pt believes her depression comes from having no local family. She has her and two sons who are grown. Her siblings, in [place] are like her children, with the age difference-by history she has been responsible for them. However, they are older now, more detached and they were not raised by parents with the distance they have now. We were raised united. As a result, she feels alone, has bad thoughts constantly, sick and tired , extremely unhappy I do not wish to be here . Also reports sleep disruption. Agrees to a couples meeting 05/19 11am. Tolerating Cymbalta, hx of Klonopin- which I lost control of as you see . Medication Compliance: Yes Side effects from medications: No Attending Groups: Intermittent Review of Systems Acute medical concerns: No Medical Review of Systems: unchanged Mental Status Exam Mental Status Exam Patient Appearance: Fatigued Patient Orientation: Person, Place, Time and Situation Level of Consciousness: Alert Patient Behavior: Talkative, Cooperative and Good Eye Contact Mood Description: Depressed Affect Description: Flat Patient Cognition Impaired: No Ability to Follow Directions: Good Speech Pattern: Spontaneous Speech Memory Description: Intact Hallucinations: None Delusions: Not Present Perceptual Disturbances: Depersonalization Thought Process: Rumination Thought Content: positive for Circumstantial, positive for Perseveration and positive for Suicidal Ideation Depressive Symptoms: Increased Anxiety, Difficulty Sleeping, Loss of Int. in Activity, Feelings of Worthlessness, Hopelessness, Unhappiness, Thoughts of /Suicide, Low Self Esteem and Loss of Energy Judgement: Fair Diagnostics Vital Signs (24Hr): Vital Signs - 24 hr 05/18/23 06:00 Temperature 97.5 F Pulse Rate 81 Respiratory Rate 16 Blood Pressure 110/68 Pulse Oximetry 96 Oxygen Delivery Method Room Air Labs 05/16/23 07:29 Medications Medications Current Medications Acetaminophen (Acetaminophen 325 Mg Tablet) 650 mg PO Q6H PRN PRN Reason: Headache/Pain Mild Scale (1-3) Last Admin: 05/18/23 06:49 Dose: 650 mg Al Hydroxide/Mg Hydroxide (Magnesium Hydrox/Alum Hydrox 30 Ml Oral.Susp) 30 ml PO Q6H PRN PRN Reason: Heartburn/Nausea Duloxetine HCl (Duloxetine Hcl 30 Mg Capsule.Dr) 30 mg PO DAILY [facility] Last Admin: 05/18/23 08:40 Dose: 30 mg Hydroxyzine HCl (Hydroxyzine Hcl 25 Mg Tablet) 25 mg PO Q6H PRN PRN Reason: Anxiety Last Admin: 05/18/23 14:41 Dose: 25 mg Ibuprofen (Ibuprofen 800 Mg Tablet) 800 mg PO BIDWM PRN PRN Reason: Pain, Mild (Pain Scale 1-3) Last Admin: 05/18/23 11:23 Dose: 800 mg Lorazepam (Lorazepam 1 Mg Tablet) 1 mg PO Q6H PRN PRN Reason: Anxiety Last Admin: 05/18/23 11:23 Dose: 1 mg Magnesium Hydroxide (Milk Of Magnesia 30 Ml Oral.Susp) 30 ml PO DAILY PRN PRN Reason: Constipation Melatonin (Melatonin 3 Mg Tablet) 9 mg PO BEDTIME PRN PRN Reason: Insomnia Nicotine Polacrilex (Nicotine Polacrilex 2 Mg Gum) 4 mg BUCCAL Q2H PRN PRN Reason: Nicotine Cravings Propranolol HCl (Propranolol Hcl 10 Mg Tablet) 10 mg PO TID PRN; Protocol PRN Reason: anxiety Last Admin: 05/16/23 14:26 Dose: 10 mg Sertraline HCl (Sertraline Hcl 50 Mg Tablet) 50 mg PO DAILY [facility] Last Admin: 05/18/23 08:40 Dose: 50 mg Trazodone HCl (Trazodone Hcl 50 Mg Tablet) 50 mg PO BEDTIME MRX1 [facility] Last Admin: 05/18/23 03:01 Dose: Not Given Allergies Allergies Allergy/AdvReac Type Severity Reaction Status Date / Time lamotrigine [From Lamictal] AdvReac Anaphylaxis Verified 05/15/23 22:31 Assessment & Plan Assessment & Plan (1) Suicidal behavior: Status: Acute Code(s): R45.89 - Other symptoms and signs involving emotional state Assessment and Plan: [facility] therapy and groups SW to contact outpt providers- pt reports therapy on Thursday next week 05/17 ongoing si thoughts (2) Depression: Status: Acute Code(s): F32.A - Depression, unspecified Assessment and Plan: taper and dc sertraline trial of duloxetine (different class antidepressant) dc clonazepam trial of ativan /or propranlol for panic tolerated first dose of duloxetine in 3 days inc dose (3) Panic disorder: Status: Acute Code(s): F41.0 - Panic disorder [episodic paroxysmal anxiety] Assessment and Plan: ativan somewhat helpful likely will also need propranlol combined Plan 1. adjust medications 2. get [facility] record 3. SW to contact out pt providers and collateral from family 4 group therapy 05/17 CTP 05/18/23- Continue current regime and plan of care Couples meeting on 05/19/23. Patient educated on: therapeutic strategies Informed Consent: further education needed Reason for continued inpatient stay Substantial Risk for: harm to self and rapid decompensation Time Spent With Patient Time: Total time managing care of this patient today ____ minutes.
[2023-05-18] MEDS: Melatonin 3 MG TABLET 9 MG PO (21:16)
[2023-05-18] MEDS: traZODone HCL 50 MG TABLET PO (21:16)
[2023-05-19 09:19] VITALS: BP 142/73; PULSE 98; RESP 16; TEMP 36.8; O2SAT 97
[2023-05-19] MEDS: Sertraline HCL 50 MG TABLET PO (09:21)
[2023-05-19] MEDS: DULoxetine HCl 30 MG CAPSULE.DR PO (09:21)
[2023-05-19] MEDS: Acetaminophen 325 MG TABLET 650 MG PO (09:23)
[2023-05-19] MEDS: LORazepam 1 MG TABLET PO ×2 (10:00→21:52)
--- NOTE | 2023-05-19 16:07 | P.PNPSI_ITS ---
Subjective Subjective Date of Service: 05/19/23 Reason For Visit: Unspecified Depressive Disorder Generalized Anxiet Subjective Notes: Conditional Voluntary Healthcare Proxy: No Guardianship: No Medical Problems Affecting Mental Status: No Interim History: Couples meeting after pt visited with son and . is a strong support. He reports pt has had sx of depression, ?dissociation, Looks into space and seems clouded at least a few times per week, like she is not here . These symptoms frustrate him. Pt acknowledges, adding I am not aware when this is happening . Symptoms have increased recently. Both report a similiar set of increase in sx 1.5 months ago. Both report these are long standing and occurred in [place]. Pt denies seizure hx. Both agree to EEG to rule out possible seizure as etiology of sx. Medication Compliance: Yes Side effects from medications: No Attending Groups: Intermittent Review of Systems Acute medical concerns: No Medical Review of Systems: unchanged Mental Status Exam Mental Status Exam Patient Appearance: Appropriate Patient Orientation: Person, Place, Time and Situation Level of Consciousness: Alert Patient Behavior: Talkative, Cooperative and Good Eye Contact Mood Description: Anxious and Apprehensive Affect Description: Flat Patient Cognition Impaired: No Ability to Follow Directions: Good Speech Pattern: Spontaneous Speech Memory Description: Intact Hallucinations: None Delusions: Not Present Perceptual Disturbances: Depersonalization Thought Process: Rumination Thought Content: positive for Circumstantial and positive for Perseveration Depressive Symptoms: Increased Anxiety, Loss of Int. in Activity, Feelings of Worthlessness, Hopelessness, Unhappiness, Low Self Esteem and Loss of Energy Judgement: Good Diagnostics Vital Signs (24Hr): Vital Signs - 24 hr 05/18/23 18:00 05/19/23 09:19 Temperature 99.2 F 98.2 F Pulse Rate 84 98 Respiratory Rate 20 16 Blood Pressure 108/69 142/73 H Pulse Oximetry 99 97 Oxygen Delivery Method Room Air Room Air Labs 05/16/23 07:29 Medications Medications Current Medications Acetaminophen (Acetaminophen 325 Mg Tablet) 650 mg PO Q6H PRN PRN Reason: Headache/Pain Mild Scale (1-3) Last Admin: 05/19/23 09:23 Dose: 650 mg Al Hydroxide/Mg Hydroxide (Magnesium Hydrox/Alum Hydrox 30 Ml Oral.Susp) 30 ml PO Q6H PRN PRN Reason: Heartburn/Nausea Duloxetine HCl (Duloxetine Hcl 30 Mg Capsule.Dr) 30 mg PO DAILY [facility] Last Admin: 05/19/23 09:21 Dose: 30 mg Hydroxyzine HCl (Hydroxyzine Hcl 25 Mg Tablet) 25 mg PO Q6H PRN PRN Reason: Anxiety Last Admin: 05/18/23 21:16 Dose: 25 mg Ibuprofen (Ibuprofen 800 Mg Tablet) 800 mg PO BIDWM PRN PRN Reason: Pain, Mild (Pain Scale 1-3) Last Admin: 05/18/23 11:23 Dose: 800 mg Lorazepam (Lorazepam 1 Mg Tablet) 1 mg PO Q6H PRN PRN Reason: Anxiety Last Admin: 05/19/23 10:00 Dose: 1 mg Magnesium Hydroxide (Milk Of Magnesia 30 Ml Oral.Susp) 30 ml PO DAILY PRN PRN Reason: Constipation Melatonin (Melatonin 3 Mg Tablet) 9 mg PO BEDTIME PRN PRN Reason: Insomnia Last Admin: 05/18/23 21:16 Dose: 9 mg Nicotine Polacrilex (Nicotine Polacrilex 2 Mg Gum) 4 mg BUCCAL Q2H PRN PRN Reason: Nicotine Cravings Propranolol HCl (Propranolol Hcl 10 Mg Tablet) 10 mg PO TID PRN; Protocol PRN Reason: anxiety Last Admin: 05/16/23 14:26 Dose: 10 mg Sertraline HCl (Sertraline Hcl 50 Mg Tablet) 50 mg PO DAILY [facility] Last Admin: 05/19/23 09:21 Dose: 50 mg Trazodone HCl (Trazodone Hcl 50 Mg Tablet) 50 mg PO BEDTIME MRX1 [facility] Last Admin: 05/19/23 04:56 Dose: Not Given Allergies Allergies Allergy/AdvReac Type Severity Reaction Status Date / Time lamotrigine [From Lamictal] AdvReac Anaphylaxis Verified 05/15/23 22:31 Assessment & Plan Assessment & Plan (1) Suicidal behavior: Status: Acute Code(s): R45.89 - Other symptoms and signs involving emotional state Assessment and Plan: [facility] therapy and groups SW to contact outpt providers- pt reports therapy on Thursday next 05/17 ongoing si thoughts (2) Depression: Status: Acute Code(s): F32.A - Depression, unspecified Assessment and Plan: taper and dc sertraline trial of duloxetine (different class antidepressant) dc clonazepam trial of ativan /or propranlol for panic tolerated first dose of duloxetine in 3 days inc dose (3) Panic disorder: Status: Acute Code(s): F41.0 - Panic disorder [episodic paroxysmal anxiety] Assessment and Plan: ativan somewhat helpful likely will also need propranlol combined Plan 1. adjust medications 2. get [facility] record 3. SW to contact out pt providers and collateral from family 4 group therapy 05/17 CTP 05/18/23- Continue current regime and plan of care Couples meeting on 05/19/23. 05/19/23- EEG Patient educated on: therapeutic strategies Guardian/Caregiver educated on: therapeutic strategies Informed Consent: understands and further education needed Reason for continued inpatient stay Substantial Risk for: harm to self and rapid decompensation Time Spent With Patient Time: Total time managing care of this patient today ____ minutes.
[2023-05-19] MEDS: hydrOXYzine HCL 25 MG TABLET PO (18:23)
[2023-05-19 21:40] VITALS: BP 110/62; PULSE 92; TEMP 36.3; O2SAT 98
[2023-05-19] MEDS: traZODone HCL 50 MG TABLET PO (21:49)
[2023-05-19] MEDS: Melatonin 3 MG TABLET 9 MG PO (21:49)
--- NOTE | 2023-05-20 | EEG_ITS ---
This is a 16-channel EEG with an EKG lead. The patient is reported awake during the tracing. Background EEG rhythm is 14 to 16 hertz low to medium amplitude posteriorly and lower amplitude fast anteriorly. Photic stimulation does not produce any significant driving. Hyperventilation is not performed. Some lead and muscle artifacts are noted. No sharp wave spikes or paroxysmal tendencies noted. Cardiac lead does not reveal any significant abnormality. IMPRESSION: Unremarkable EEG. MD MARK Ashley/ELIAZAR / [id number]
[2023-05-20 04:28] VITALS: BP 94/68
[2023-05-20 04:43] LABS: Glucose, Whole Blood 93 mg/dL (60-115)
--- NOTE | 2023-05-20 04:43 | PC.NURSE ---
PT approached this policy writer and stated that she felt dizzy. PT was sat in chair VS taken T 97, P 88, BP 94/68, POC 93. PT given water and orange juice to drink. PT says this has happened before and she has a sweet cold drink and feels better. After sitting for a few minutes, PT felt better and went to bed.
[2023-05-20 09:00] VITALS: BP 111/71; PULSE 96; RESP 18; TEMP 36.4; O2SAT 98
[2023-05-20] MEDS: Sertraline HCL 50 MG TABLET PO (09:02)
[2023-05-20] MEDS: DULoxetine HCl 30 MG CAPSULE.DR PO (09:02)
[2023-05-20] MEDS: LORazepam 1 MG TABLET PO ×2 (11:53→17:56)
--- NOTE | 2023-05-20 12:20 | HO.PSYCHPN ---
Subjective Subjective Date of Service: 05/20/23 Reason For Visit: Unspecified Depressive Disorder Generalized Anxiet Subjective Notes: Conditional Voluntary Healthcare Proxy: No Guardianship: No Medical Problems Affecting Mental Status: No Interim History: EEG completed, results WNL. Pt reports sleep to be appropriate, anxiety still present due to missing family, being away from home. Tolerating new medication, discussed tentative discharge for 05/22. She agrees. Denies SI, reporting some relief from sx of depression. Medication Compliance: Yes Side effects from medications: No Attending Groups: Intermittent Review of Systems Acute medical concerns: No Medical Review of Systems: unchanged Mental Status Exam Mental Status Exam Patient Appearance: Appropriate Patient Orientation: Person, Place, Time and Situation Level of Consciousness: Alert Patient Behavior: Talkative, Cooperative and Good Eye Contact Mood Description: Anxious and Apprehensive Affect Description: Flat Patient Cognition Impaired: No Ability to Follow Directions: Good Speech Pattern: Spontaneous Speech Memory Description: Intact Hallucinations: None Delusions: Not Present Perceptual Disturbances: Depersonalization Thought Process: Rumination Thought Content: positive for Circumstantial and positive for Perseveration Depressive Symptoms: Increased Anxiety, Loss of Int. in Activity, Feelings of Worthlessness, Hopelessness, Unhappiness, Low Self Esteem and Loss of Energy Judgement: Good Diagnostics Vital Signs (24Hr): Vital Signs - 24 hr 05/19/23 21:40 05/20/23 04:28 05/20/23 09:00 Temperature 97.4 F 97.6 F Pulse Rate 92 96 Respiratory Rate 18 Blood Pressure 110/62 94/68 111/71 Pulse Oximetry 98 98 Oxygen Delivery Method Room Air Room Air Labs 05/16/23 07:29 Labs: Laboratory Results - last 48 hr 05/20/23 04:39 POC Glucose 93 Medications Medications Current Medications Acetaminophen (Acetaminophen 325 Mg Tablet) 650 mg PO Q6H PRN PRN Reason: Headache/Pain Mild Scale (1-3) Last Admin: 05/19/23 09:23 Dose: 650 mg Al Hydroxide/Mg Hydroxide (Magnesium Hydrox/Alum Hydrox 30 Ml Oral.Susp) 30 ml PO Q6H PRN PRN Reason: Heartburn/Nausea Duloxetine HCl (Duloxetine Hcl 30 Mg Capsule.Dr) 30 mg PO DAILY [facility] Last Admin: 05/20/23 09:02 Dose: 30 mg Hydroxyzine HCl (Hydroxyzine Hcl 25 Mg Tablet) 25 mg PO Q6H PRN PRN Reason: Anxiety Last Admin: 05/19/23 18:23 Dose: 25 mg Ibuprofen (Ibuprofen 800 Mg Tablet) 800 mg PO BIDWM PRN PRN Reason: Pain, Mild (Pain Scale 1-3) Last Admin: 05/18/23 11:23 Dose: 800 mg Lorazepam (Lorazepam 1 Mg Tablet) 1 mg PO Q6H PRN PRN Reason: Anxiety Last Admin: 05/20/23 11:53 Dose: 1 mg Magnesium Hydroxide (Milk Of Magnesia 30 Ml Oral.Susp) 30 ml PO DAILY PRN PRN Reason: Constipation Melatonin (Melatonin 3 Mg Tablet) 9 mg PO BEDTIME PRN PRN Reason: Insomnia Last Admin: 05/19/23 21:49 Dose: 9 mg Nicotine Polacrilex (Nicotine Polacrilex 2 Mg Gum) 4 mg BUCCAL Q2H PRN PRN Reason: Nicotine Cravings Propranolol HCl (Propranolol Hcl 10 Mg Tablet) 10 mg PO TID PRN; Protocol PRN Reason: anxiety Last Admin: 05/16/23 14:26 Dose: 10 mg Sertraline HCl (Sertraline Hcl 50 Mg Tablet) 50 mg PO DAILY [facility] Last Admin: 05/20/23 09:02 Dose: 50 mg Trazodone HCl (Trazodone Hcl 50 Mg Tablet) 50 mg PO BEDTIME MRX1 [facility] Last Admin: 05/20/23 04:21 Dose: Not Given Allergies Allergies Allergy/AdvReac Type Severity Reaction Status Date / Time lamotrigine [From Lamictal] AdvReac Anaphylaxis Verified 05/15/23 22:31 Assessment & Plan Assessment & Plan (1) Suicidal behavior: Status: Acute Code(s): R45.89 - Other symptoms and signs involving emotional state Assessment and Plan: [facility] therapy and groups SW to contact outpt providers- pt reports therapy on Thursday next week 05/17 ongoing si thoughts (2) Depression: Status: Acute Code(s): F32.A - Depression, unspecified Assessment and Plan: taper and dc sertraline trial of duloxetine (different class antidepressant) dc clonazepam trial of ativan /or propranlol for panic tolerated first dose of duloxetine in 3 days inc dose (3) Panic disorder: Status: Acute Code(s): F41.0 - Panic disorder [episodic paroxysmal anxiety] Assessment and Plan: ativan somewhat helpful likely will also need propranlol combined Plan 1. adjust medications 2. get [facility] record 3. SW to contact out pt providers and collateral from family 4 group therapy 05/17 CTP 05/18/23- Continue current regime and plan of care Couples meeting on 05/19/23. 05/20/23 EEG WNL Increase Cymbalta to 40 mg daily Decrease Sertraline to 25 mg daily Patient educated on: therapeutic strategies Informed Consent: understands and further education needed Reason for continued inpatient stay Substantial Risk for: harm to self and rapid decompensation Time Spent With Patient Time: Total time managing care of this patient today ____ minutes.
[2023-05-20 18:00] VITALS: BP 121/75; PULSE 85; TEMP 36.1; O2SAT 98
[2023-05-20] MEDS: traZODone HCL 50 MG TABLET PO (20:36)
[2023-05-20] MEDS: Melatonin 3 MG TABLET 9 MG PO (20:38)
[2023-05-21 08:30] VITALS: BP 107/65; PULSE 76; RESP 18; TEMP 36.4; O2SAT 98
[2023-05-21] MEDS: DULoxetine HCl 20 MG CAPSULE.DR 40 MG PO (08:40)
[2023-05-21] MEDS: Sertraline HCL 25 MG TABLET PO (08:40)
[2023-05-21] MEDS: hydrOXYzine HCL 25 MG TABLET PO ×2 (10:01→16:38)
--- NOTE | 2023-05-21 10:56 | HO.PSYCHPN ---
Subjective Subjective Date of Service: 05/21/23 Reason For Visit: Unspecified Depressive Disorder Generalized Anxiet Subjective Notes: Conditional Voluntary Healthcare Proxy: No Guardianship: No Medical Problems Affecting Mental Status: No Interim History: Preparing for discharge-wanting to return to her family and continue with OP care. Reports sleep to be improved, depression to be decreased however anxiety persists. Discussed augmentation of regime with low dose Abilify to assist regime efficacy. She agrees. Denies SI/HI Medication Compliance: Yes Side effects from medications: No Attending Groups: No Review of Systems Acute medical concerns: No Medical Review of Systems: unchanged Mental Status Exam Mental Status Exam Patient Appearance: Appropriate Patient Orientation: Person, Place, Time and Situation Level of Consciousness: Alert Patient Behavior: Talkative, Cooperative and Good Eye Contact Mood Description: Anxious and Apprehensive Affect Description: Flat Patient Cognition Impaired: No Ability to Follow Directions: Good Speech Pattern: Spontaneous Speech Memory Description: Intact Hallucinations: None Delusions: Not Present Perceptual Disturbances: Depersonalization Thought Process: Rumination Thought Content: positive for Circumstantial and positive for Perseveration Depressive Symptoms: Increased Anxiety, Loss of Int. in Activity, Feelings of Worthlessness, Hopelessness, Unhappiness, Low Self Esteem and Loss of Energy Judgement: Good Diagnostics Vital Signs (24Hr): Vital Signs - 24 hr 05/20/23 18:00 05/21/23 08:30 Temperature 97 F 97.6 F Pulse Rate 85 76 Respiratory Rate 18 Blood Pressure 121/75 107/65 Pulse Oximetry 98 98 Oxygen Delivery Method Room Air Room Air Labs 05/16/23 07:29 Labs: Laboratory Results - last 48 hr 05/20/23 04:39 POC Glucose 93 Medications Medications Current Medications Acetaminophen (Acetaminophen 325 Mg Tablet) 650 mg PO Q6H PRN PRN Reason: Headache/Pain Mild Scale (1-3) Last Admin: 05/19/23 09:23 Dose: 650 mg Al Hydroxide/Mg Hydroxide (Magnesium Hydrox/Alum Hydrox 30 Ml Oral.Susp) 30 ml PO Q6H PRN PRN Reason: Heartburn/Nausea Duloxetine HCl (Duloxetine Hcl 20 Mg Capsule.Dr) 40 mg PO DAILY [facility] Last Admin: 05/21/23 08:40 Dose: 40 mg Hydroxyzine HCl (Hydroxyzine Hcl 25 Mg Tablet) 25 mg PO Q6H PRN PRN Reason: Anxiety Last Admin: 05/21/23 10:01 Dose: 25 mg Ibuprofen (Ibuprofen 800 Mg Tablet) 800 mg PO BIDWM PRN PRN Reason: Pain, Mild (Pain Scale 1-3) Last Admin: 05/18/23 11:23 Dose: 800 mg Lorazepam (Lorazepam 1 Mg Tablet) 1 mg PO Q6H PRN PRN Reason: Anxiety Last Admin: 05/20/23 17:56 Dose: 1 mg Magnesium Hydroxide (Milk Of Magnesia 30 Ml Oral.Susp) 30 ml PO DAILY PRN PRN Reason: Constipation Melatonin (Melatonin 3 Mg Tablet) 9 mg PO BEDTIME PRN PRN Reason: Insomnia Last Admin: 05/20/23 20:38 Dose: 9 mg Nicotine Polacrilex (Nicotine Polacrilex 2 Mg Gum) 4 mg BUCCAL Q2H PRN PRN Reason: Nicotine Cravings Propranolol HCl (Propranolol Hcl 10 Mg Tablet) 10 mg PO TID PRN; Protocol PRN Reason: anxiety Last Admin: 05/16/23 14:26 Dose: 10 mg Sertraline HCl (Sertraline Hcl 25 Mg Tablet) 25 mg PO DAILY [facility] Last Admin: 05/21/23 08:40 Dose: 25 mg Trazodone HCl (Trazodone Hcl 50 Mg Tablet) 50 mg PO BEDTIME MRX1 [facility] Last Admin: 05/21/23 01:11 Dose: Not Given Allergies Allergies Allergy/AdvReac Type Severity Reaction Status Date / Time lamotrigine [From Lamictal] AdvReac Anaphylaxis Verified 05/15/23 22:31 Assessment & Plan Assessment & Plan (1) Suicidal behavior: Status: Acute Code(s): R45.89 - Other symptoms and signs involving emotional state Assessment and Plan: [facility] therapy and groups SW to contact outpt providers- pt reports therapy on Thursday next week 05/17 ongoing si thoughts (2) Depression: Status: Acute Code(s): F32.A - Depression, unspecified Assessment and Plan: taper and dc sertraline trial of duloxetine (different class antidepressant) dc clonazepam trial of ativan /or propranlol for panic tolerated first dose of duloxetine in 3 days inc dose (3) Panic disorder: Status: Acute Code(s): F41.0 - Panic disorder [episodic paroxysmal anxiety] Assessment and Plan: ativan somewhat helpful likely will also need propranlol combined Plan 1. adjust medications 2. get [facility] record 3. SW to contact out pt providers and collateral from family 4 group therapy 05/17 CTP 05/18/23- Continue current regime and plan of care Couples meeting on 05/19/23. 05/20/23 EEG WNL Increase Cymbalta to 40 mg daily Decrease Sertraline to 25 mg daily 05/21/23 Abilify 2 mg a.m. Pt asking to discharge 05/22 to and children as she is missing her family. Patient educated on: medication risk/benefits Informed Consent: understands and further education needed Reason for continued inpatient stay Substantial Risk for: stable for discharge Time Spent With Patient Time: Total time managing care of this patient today ____ minutes.
[2023-05-21 16:30] VITALS: BP 105/56; PULSE 78; TEMP 36.1
[2023-05-21] MEDS: traZODone HCL 50 MG TABLET PO (20:37)
[2023-05-21] MEDS: Melatonin 3 MG TABLET 9 MG PO (20:42)
[2023-05-21] MEDS: Propranolol HCL 10 MG TABLET PO (20:42)
[2023-05-22] MEDS: ARIPiprazole 2 MG TABLET PO (08:11)
[2023-05-22] MEDS: Sertraline HCL 25 MG TABLET PO (08:11)
[2023-05-22] MEDS: DULoxetine HCl 20 MG CAPSULE.DR 40 MG PO (08:11)
[2023-05-22 08:54] VITALS: BP 113/73; PULSE 84; RESP 18; TEMP 36.4; O2SAT 97
[2023-05-22] MEDS: hydrOXYzine HCL 25 MG TABLET PO (10:38)
--- NOTE | 2023-05-22 10:44 | P.DS_ITS ---
DS: Providers Provider Date of Service: 05/22/23 Date of admission: 05/15/23 18:53 Date of discharge: 05/22/23 Primary care physician: Coral Sumner DO Admitting clinician: Amaris Salinas Attending physician on admission: Amaris Salinas Consults: 05/15/23 20:12 Consult to Hospitalist Routine Comment: Consulting Provider: Hospitalist Reason For Exam: OSH admission Attending physician on discharge: Matt Infante Discharging clinician: Annalisa Neves DS: Diagnosis Discharge Diagnosis (1) Suicidal behavior: Status: Resolved (2) Depression: Status: Acute (3) Panic disorder: Status: Resolved DS: Medications Discharge Medications Home Medications: Previous Rx's Medication Instructions Recorded aripiprazole 2 mg tablet (Abilify) 2 mg PO DAILY #3 tabs 05/22/23 clonazepam 0.5 mg tablet 0.5 mg PO TID #21 tabs 05/22/23 duloxetine 20 mg capsule,delayed 40 mg PO DAILY #60 caps 05/22/23 release melatonin 10 mg tablet 10 mg PO BEDTIME PRN Insomnia #30 05/22/23 tabs propranolol 10 mg tablet 10 mg PO TID PRN anxiety #21 tabs 05/22/23 sertraline 25 mg tablet 25 mg PO DAILY #30 tabs 05/22/23 trazodone 50 mg tablet 50 mg PO BEDTIME MRX1 #60 tabs 05/22/23 Mental Status Exam Mental Status Exam Patient Appearance: Appropriate Patient Orientation: Person, Place, Time and Situation Level of Consciousness: Alert Patient Behavior: Talkative, Cooperative and Good Eye Contact Mood Description: Anxious and Apprehensive Affect Description: Flat Patient Cognition Impaired: No Ability to Follow Directions: Good Speech Pattern: Spontaneous Speech Memory Description: Intact Hallucinations: None Delusions: Not Present Perceptual Disturbances: Depersonalization Thought Process: Rumination Thought Content: positive for Circumstantial and positive for Perseveration Depressive Symptoms: Increased Anxiety, Loss of Int. in Activity, Feelings of Wo rthlessness, Hopelessness, Unhappiness, Low Self Esteem and Loss of Energy Judgement: Good Data Data Completed and Pending Completed studies during hospitalization [Text1]: 05/16/23 05/16/23 05/16/23 07:29 07:29 07:29 Sodium 142 Potassium 4.0 Chloride 110 H Carbon Dioxide 24 Anion Gap 12 BUN 10 Creatinine 0.75 Estim Creat Clear Calc TNP Estimated GFR > 60 POC Glucose Fasting Glucose 78 Estimat Average Glucose 94 Hemoglobin A1c % 4.9 Calcium 9.2 Total Bilirubin 0.4 AST 13 ALT 7 Alkaline Phosphatase 43 Total Protein 6.4 L Albumin 3.5 Triglycerides 50 Cholesterol 222 LDL Cholesterol, Calc 147 HDL Cholesterol 65 Vitamin B12 464 Folate 6.0 TSH 1.97 Free T4 0.87 05/20/23 04:39 Sodium Potassium Chloride Carbon Dioxide Anion Gap BUN Creatinine Estim Creat Clear Calc Estimated GFR POC Glucose 93 Fasting Glucose Estimat Average Glucose Hemoglobin A1c % Calcium Total Bilirubin AST ALT Alkaline Phosphatase Total Protein Albumin Triglycerides Cholesterol LDL Cholesterol, Calc HDL Cholesterol Vitamin B12 Folate TSH Free T4 DS: Summary Hospital Course Hospital Course: Admission to adult psychiatry for exacerbation of recurrent major depression, anxiety. S/P Klonopin OD in an attempt for efficacy, not to harm herself or to suicide per pt. Pt reports her regime was not effective. Stressors include siblings and children getting older and in pursuit of their own lives, with resulting decrease in connection to patient. Medications were reviewed and adjusted. Pt met with her to discuss issues of concern, milieu therapy was offered prior to discharge. She will continue with out patient therapy and psychopharmacology. Time spent discussing smoking cessation with patient: 3 to 10 minutes Status at Discharge Functional status at discharge: independent ambulation Overall status at discharge: patient is progressing back to baseline Time Spent with Patient Time attestation: Total time managing care of this patient today ____ minutes. Time spent: Greater than 30 minutes Discharge Plan Discharge Anticipated Discharge Date/Time: 05/22/23 12:25 Patient Disposition: Home, Self-Care Discharge Diagnosis: Recurrent Major Depression Referrals: Yahir Clifford: [facility]: (Therapy) [Other] - 05/28/23 11:00 am (Initial Diagnostic Intake for Therapy Appointment in person at [facility] You need to attend initial appointment to receive medication management services.) Benjamin Nichols: [facility](psychiatry) [Other] - 06/22/23 12:30 pm (Initial psychiatric medication appointment with psychiatric provider Appointment will be by tele-health (telephone)) Benjamin Nichols: [facility](psychiatry) [Other] - 07/22/23 10:00 am (medication Management Appointment Appointment will be by tele-health (telephone)) Coral Montenegro DO [Primary Care Provider] - (Dr. kingsley will call you to schedule follow-up appointment.) Discharge Medications: New trazodone 50 mg Tablet 50 mg PO BEDTIME MRX1 Qty: 60 0RF propranolol 10 mg Tablet 10 mg PO TID PRN (Reason: anxiety) Qty: 21 1RF Protocol: Hold for SBP/HR < HOLD for SBP < : 90 HOLD for HR < : 60 sertraline 25 mg Tablet 25 mg PO DAILY Qty: 30 0RF duloxetine 20 mg Capsule,Delayed Release(Dr/Ec) 40 mg PO DAILY Qty: 60 0RF aripiprazole [Abilify] 2 mg Tablet 2 mg PO DAILY Qty: 3 0RF aripiprazole [Abilify] 2 mg tablet 2 mg PO DAILY Qty: 30 0RF Continued clonazepam 0.5 mg Tablet 0.5 mg PO TID Qty: 21 4RF melatonin 10 mg Tablet 10 mg PO BEDTIME PRN (Reason: Insomnia) Qty: 30 0RF Discontinued sertraline 100 mg Tablet 100 mg PO DAILY zolpidem 10 mg Tablet 10 mg PO BEDTIME Discharge Orders: Discharge Order (Routine); Ordered 05/22/23 Ordered By: Annalisa Neves Diet: Advance to usual diet Activity on Discharge: As tolerated Stand Alone Forms: Patient Portal Discharge page, Community Support Care Plan Goals: Mood and Behavioral Stabilization Health Concerns: Mood and Behavioral Stabilization Plan of Treatment: Attend scheduled appointments Take medications as directed Assessment: Pt reports improved sleep, reports depressive sx are decreased, and anxiety sx continue present. She is tolerating medication changes and will augment her regime with Abilify today. She asks to discharge as she wants to be with her and children, citing their support to help decrease her symptoms. She was interviewed prior to discharge and found to be fully oriented and without SI/HI. She has insight and demonstrates good judgment in terms of wanting to continue her outpatient treatment. She is not in imminent risk of harm to self or others and has a safety plan that includes presenting to the closest ER or calling 911 if feeling unsafe. Pt has been observed closely by nursing and unit staff throughout admission. Pt has not engaged in any behaviors that suggest dangerousness to self or others and has demonstrated appropirate behaviors and impulse control. Discharge Date/Time: 05/22/23 11:54
== END 2023-05-22 11:54 | disposition home or self-care (01) | DRG 751 ==
PROVIDERS: Psychiatry & Neurology Psychiatry; Admitting Provider Psychiatry & Neurology Psychiatry; PCP Internal Medicine; Visit Provider Clinical Nurse Specialist Psychiatric/Mental Health, Adult
DX: F33.9 Major depressive disorder, recurrent, unspecified (principal); R45.851 Suicidal ideations; F41.0 Panic disorder [episodic paroxysmal anxiety]; G89.21 Chronic pain due to trauma; Z79.899 Other long term (current) drug therapy
CPT/HCPCS: 36415; 80053; 80061; 82607; 82746; 82947; 83036; 84439; 84443; 95816

== ENCOUNTER → 2023-05-15 18:53 | Outpatient (BNV) | payer OTHER, SELFPAY | PROVIDERS: Admitting Provider Psychiatry & Neurology Psychiatry; PCP Internal Medicine; Visit Provider Clinical Nurse Specialist Psychiatric/Mental Health, Adult | DX: F33.2 Major depressive disorder, recurrent severe without psychotic features (principal); F41.0 Panic disorder [episodic paroxysmal anxiety]; R45.89 Other symptoms and signs involving emotional state | CPT/HCPCS: 99232; 99239 ==

== ENCOUNTER → 2023-05-15 18:53 | Outpatient (BNV) | payer OTHER, SELFPAY | PROVIDERS: Admitting Provider Psychiatry & Neurology Psychiatry; PCP Internal Medicine; Visit Provider Student in an Organized Health Care Education/Training Program | DX: Z02.2 Encounter for examination for admission to residential institution (principal); R45.89 Other symptoms and signs involving emotional state; F32.A Depression, unspecified; F41.0 Panic disorder [episodic paroxysmal anxiety]; Z00.00 Encounter for general adult medical examination without abnormal findings | CPT/HCPCS: 99429 ==

== ENCOUNTER 2023-08-23 16:15 | Inpatient (IN) | payer SELFPAY ==
[2023-08-23 16:26] VITALS: BP 121/79; PULSE 115; RESP 18; TEMP 36.7; O2SAT 100; BMI 27.4
--- NOTE | 2023-08-23 16:33 | ED.GENADULT ---
HPI - General Adult General Chief complaint: Psychiatric Symptoms Stated complaint: SI Time Seen by Provider: 08/23/23 16:35 Source: patient Mode of arrival: ambulatory Limitations: no limitations History of Present Illness HPI narrative: 42 yo female with PMH of depression here with SI and plans to jump in front of a truck. She has felt low without any trigger x 3 weeks. She tried last night and at 6am this morning to take lamictal in hopes that it would cause anaphylaxis and block her airway but it did not work. She is very depressed and wants to . complaint: SI Onset (ago): week(s) (3) Severity: severe Relieving factors: none Exacerbating factors: none Associated symptoms: denies other symptoms Treatments prior to arrival: none Related Data Home Medications Medication Instructions Recorded Confirmed duloxetine 30 mg capsule,delayed 30 mg PO DAILY 08/23/23 08/23/23 release Previous Rx's Medication Instructions Recorded propranolol 10 mg tablet 10 mg PO TID PRN anxiety #21 tabs 05/22/23 trazodone 50 mg tablet 50 mg PO BEDTIME MRX1 #60 tabs 05/22/23 Allergies Allergy/AdvReac Type Severity Reaction Status Date / Time lamotrigine [From Lamictal] AdvReac Anaphylaxis Verified 05/15/23 22:31 Review of Systems Review of Systems: Constitutional : No Fever, No Chills ENT/Mouth : No Ear Pain, No Nasal Congestion, No sore throat Eyes: No Eye Pain, No Swelling, No Redness Cardiovascular : No Chest Pain, No SOB Respiratory : No Cough, No Sputum, No Dyspnea Gastrointestinal : No Nausea, No Vomiting, No Diarrhea, No Hematochezia, No Melena Genitourinary : No Dysuria, No Urinary Frequency, No Hematuria Musculoskeletal : No Myalgias Skin : No Skin Lesions, No rash Neuro : No Weakness, No Numbness, No Paresthesias, No Dizziness, No Headache Psych : positive Anxiety, positive Depression, positive SI no HI, pos AH All other systems reviewed and are negative PMFSH Past Medical History Attestation statement: The following information was validated with the patient. Medical History No known health problems Social History Social History Household Members: Family Housing: Apartment Patient Tobacco Use Status: Never used Tobacco Advance Directives: No Advance Directives Information Provided: No service: No Sexual orientation: Straight/Heterosexual Physical Exam ED Vital Signs: Vital Signs - 24 hr 08/23/23 16:26 Temperature 98.0 F Pulse Rate 115 H Respiratory Rate 18 Blood Pressure 121/79 Pulse Oximetry 100 Oxygen Delivery Method Room Air BMI result Body Mass Index 27.4 Appearance: Alert. Oriented X3. No acute distress. appears depressed and withdrawn Eyes: Pupils equal, round and reactive to light. ENT: Pharynx normal. no swelling noted Neck: Normal inspection. Neck supple. CVS: Normal heart rate and rhythm. Pulses normal. Respiratory: No respiratory distress. Breath sounds normal. Abdomen: Soft and nontender. Skin: Skin warm and dry. Normal skin color. Normal skin turgor. Extremities: No lower extremity edema. No calf ttp Neuro: Oriented X 3. No motor deficit. No sensory deficit. CN2-12 intact Course Course Course Narrative: RME: 42 yold female presents to the ED headache and suicideal ideation. patient states she hates herself and will jump infront of her truck to . labs and care teaam consult palced. Reevaluation(s) Reevaluation #1: Physician observation started at 458pm. Patient placed in physician observation because the patient needed more time for CARE team to assess the need for psych admission. At the time observation was started the patient's vitals were stable, patient is alert and oriented Neuro: nonfocal, CV RRR, Lungs clear Medications Administered Discontinued Medications Generic Name Dose Route Start Last Admin Trade Name Freq PRN Reason Stop Dose Admin Acetaminophen 650 mg 08/23/23 17:43 08/23/23 18:01 Acetaminophen 325 Mg Tablet PO 08/23/23 17:44 650 mg ONCE ONE Administration Medical Decision Making Medical Decision Making MDM Narrative: 42 yo female with depression here with SI and attempt at home has another plan at this time patient will need labs, observation has no signs of anaphylaxis will obtain CARE team consult. Differential Diagnosis Differential Diagnoses: The differential diagnosis associated with the presentation includes SI, depression Admission/Observation Consideration of admission/observation: Escalation of care including admission/observation considered observe until seen by CARE team Consult Healthcare Provider Management of the patient was discussed with: Behavioral Health Provider Lab Data 08/23/23 17:00 10/15/23 17:00 Labs: Lab Results 08/23/23 08/23/23 Range/Units 16:52 17:00 WBC 5.2 (4.8-10.8) X10*3/uL RBC 5.70 H (4.20-5.50) X10*6/uL Hgb 14.0 (12.0-16.0) g/dl Hct 45.2 (37.0-47.0) % MCV 79.3 L (80.0-98.0) fL MCH 24.6 L (27.0-33.0) pg MCHC 31.0 (31.0-35.0) g/dl RDW 14.3 (11.0-16.0) % Plt Count 321 (160-400) X10*3/uL MPV 9.8 (9.4-12.3) fL Immature Gran % (Auto) 0.4 (0.0-0.4) % Neut % (Auto) 75.5 H (45-73) % Lymph % (Auto) 16.4 L (20-40) % Kaufman % (Auto) 4.4 (2-11) % Eos % (Auto) 3.1 (0-4) % Baso % (Auto) 0.2 (0-2) % Lymph # (Auto) 0.9 L (1.2-4.9) X10*3/uL Kaufman # (Auto) 0.2 (0.1-1.2) X10*3/uL Eos # (Auto) 0.2 (0.0-0.4) X10*3/uL Baso # (Auto) 0.0 (0.0-0.2) X10*3/uL Abs Immat Gran (auto) 0.02 (0.00-0.03) X10*3/uL Absolute Neuts (auto) 3.9 (2.0-8.3) x10*3/uL Absolute Nucleated RBC 0.000 (0.0-0.012) X10*3/uL Nucleated RBC % (auto) 0.0 (0.0-0.2) /100WBC Sodium 140 (135-145) mmol/L Potassium 4.6 (3.3-5.1) mmol/L Chloride 108 (96-108) mmol/L Carbon Dioxide 22 (22-29) mmol/L Anion Gap 15 (12-20) BUN 12 (9-16) mg/dL Creatinine 0.84 (0.5-1.4) mg/dL Estim Creat Clear Calc 85.9 Estimated GFR > 60 Random Glucose 87 (60-115) mg/dL Calcium 9.5 (8.4-10.2) mg/dL Total Bilirubin 0.4 (0.0-1.0) mg/dL AST 17 (5-31) U/L ALT 10 (0-31) U/L Alkaline Phosphatase 41 (39-117) U/L Total Protein 7.9 (6.5-8.0) g/dL Albumin 4.3 (3.5-5.0) g/dL Urine Color Yellow Urine Appearance Clear Urine pH 5.5 (5.0-9.0) Ur Specific [place] >= 1.030 H (1.005-1.025) Urine Protein Trace (Neg-Trace) mg/dL Urine Glucose (UA) Negative (Negative) mg/dL Urine Ketones Negative (Negative) mg/dL Urine Blood Trace H (Negative) Urine Nitrite Negative (Negative) Ur Leukocyte Esterase Negative (Negative) Urine RBC 6-10 H (0-2) /HPF Urine WBC 0-5 (0-5) /HPF Ur Squamous Epith Cells 0-2 (0-2) /HPF Urine Bacteria None Seen (None Seen) Hyaline Casts 0-2 (0-2) /LPF Urine Test NEGATIVE (NEGATIVE) Salicylates < 5.0 L (15-30) mg/dL Urine Opiates Screen Not Detected (Not Detect) Urine Fentanyl Screen Not Detected (Not Detect) Acetaminophen < 17 (<30) mcg/mL Ur Barbiturates Screen Not Detected (Not Detect) Ur Phencyclidine Scrn Not Detected (Not Detect) Ur Amphetamines Screen Not Detected (Not Detect) U Benzodiazepines Scrn Not Detected (Not Detect) Urine Cocaine Screen Not Detected (Not Detect) U Marijuana (THC) Screen Not Detected (Not Detect) Ethyl Alcohol < 10 mg/dL COVID-19 ([facility]) Negative (Negative) COVID-19 Clin Com See Note External Record Review External record reviewed: Inpatient record Social Determinants Patient?s care significantly limited by Social Determinants of Health including: Problems related to primary support group Discharge Plan Discharge Clinical Impression: Suicidal ideation Patient Disposition: Still a Patient Prescriptions: No Action trazodone 50 mg Tablet 50 mg PO BEDTIME MRX1 Qty: 60 0RF propranolol 10 mg Tablet 10 mg PO TID PRN (Reason: anxiety) Qty: 21 1RF Protocol: Hold for SBP/HR < HOLD for SBP < : 90 HOLD for HR < : 60 duloxetine 30 mg capsule,delayed release(DR/EC) 30 mg PO DAILY Interventions: Sutton-Suicide Risk Severity Scale Last Done: 08/23/23 16:59
--- NOTE | 2023-08-23 17:04 | PC.NURSE ---
Vera self presented to the emergency dept with SI in the context of worsening depression x 3 weeks. Vera stated she took 8 pills since last night with the last one at 6am hoping she would have an allergic reaction. Denies any trouble breathing, swelling or reaction. Denies knowing what medication she took. Vera did ask for her clonazepam to be given but verbalized her doctor has not wanted to prescribe it since May. Med rec done. Labs drawn and pending. Affect withdrawn and flat but pleasant and cooperative. Tearful at times. No behavioral concerns. Regular diet ordered. Denies any pain or discomfort.
[2023-08-23 17:06] LABS: MANUAL DIFF FLAG NO
[2023-08-23 17:07] LABS: Basophils Percent Auto 0.2 % (0-2); Eosinophils Absolute Auto 0.2 X10*3/uL (0.0-0.4); Eosinophils Percent Auto 3.1 % (0-4); Hematocrit 45.2 % (37.0-47.0); Imm Gran Abs Auto 0.02 X10*3/uL (0.00-0.03); Imm Gran Pct Auto 0.4 % (0.0-0.4); Lymphocytes Absolute Auto 0.9 X10*3/uL (1.2-4.9); Lymphocytes Percent Auto 16.4 % (20-40); Mean Corpuscular Hemoglobin 24.6 pg (27.0-33.0); Mean Corpuscular Volume 79.3 fL (80.0-98.0); Mean Platelet Volume 9.8 fL (9.4-12.3); Monocytes Absolute Auto 0.2 X10*3/uL (0.1-1.2); Monocytes Percent Auto 4.4 % (2-11); Neutrophils Absolute Auto 3.9 x10*3/uL (2.0-8.3); Neutrophils Percent Auto 75.5 % (45-73); Platelet Count 321 X10*3/uL (160-400); Red Cell Distribution Width 14.3 % (11.0-16.0); White Blood Count 5.2 X10*3/uL (4.8-10.8)
[2023-08-23 17:08] LABS: Appearance Urine Clear; Color Urine Yellow; Glucose Urine UA Negative (Negative); Leukocyte Esterase Urine Negative (Negative); Nitrite Urine Negative (Negative); PH 5.5 (5.0-9.0); Specific Gravity - Urine >= 1.030 (1.005-1.025); UMIC TRIGGER UACC YES; Urine Blood Trace (Negative); Urine Ketones Negative (Negative); Urine Protein Trace mg/dL (Neg-Trace)
[2023-08-23 17:10] LABS: UPreg QC Valid YES; Urine Pregnancy NEGATIVE (NEGATIVE)
[2023-08-23 17:13] LABS: Amphetamine Screen Urine Not Detected (Not Detect); Bacteria Urine None Seen (None Seen); Barbiturates, Urine Not Detected (Not Detect); Benzodiazepines Screen Urine Not Detected (Not Detect); Cannabinoid Screen Urine Not Detected (Not Detect); Cocaine Screen Urine Not Detected (Not Detect); Fentanyl, urine Not Detected (Not Detect); Hyaline Casts Urine 0-2 /LPF (0-2); Opiate Screen Urine Not Detected (Not Detect); Phencyclidine Screen Urine Not Detected (Not Detect); Squamous Epithelial Cell Urine 0-2 /HPF (0-2); WBC Urine 0-5 /HPF (0-5)
[2023-08-23 17:19] LABS: COVID-19 Test Negative (Negative); IDNOW Serial# 6674DD1D
[2023-08-23 17:21] LABS: Alanine Aminotransferase 10 U/L (0-31); Albumin Level 4.3 g/dL (3.5-5.0); Alkaline Phosphatase 41 U/L (39-117); Anion Gap 15 (12-20); Aspartate Amino Transferase 17 U/L (5-31); Bilirubin Total 0.4 mg/dL (0.0-1.0); Blood Urea Nitrogen 12 mg/dL (9-16); Calcium 9.5 mg/dL (8.4-10.2); Carbon Dioxide 22 mmol/L (22-29); Chloride 108 mmol/L (96-108); Creatinine Clr Calc Pharmacy 85.9; Estimated Glomerular Filt Rate > 60; Ethanol < 10 mg/dL; Glucose Random 87 mg/dL (60-115); Potassium 4.6 mmol/L (3.3-5.1); Sodium 140 mmol/L (135-145); Total Protein 7.9 g/dL (6.5-8.0)
[2023-08-23 17:23] LABS: Acetaminophen LAB < 17 mcg/mL (<30); Salicylate < 5.0 mg/dL (15-30)
[2023-08-23] MEDS: Acetaminophen 325 MG TABLET 650 MG PO (18:01)
--- NOTE | 2023-08-23 18:04 | PC.NURSE ---
650mg Tylenol given for 5/10 headache. Pending effect.
[2023-08-23 18:40] VITALS: BP 111/72; PULSE 92; RESP 19; TEMP 36.3; O2SAT 99
[2023-08-23] MEDS: Propranolol HCL 10 MG TABLET PO (18:40)
--- NOTE | 2023-08-23 18:42 | PC.NURSE ---
1840 Propranolol 10mg PO given for anxiety from home medication list.
--- NOTE | 2023-08-23 19:14 | PC.NURSE ---
patient appears to remain at rest at present respirations are evn and unlabored patient appears in no distress
[2023-08-23 20:25] VITALS: BP 96/63; PULSE 79; RESP 18; TEMP 36.6; O2SAT 98
[2023-08-23] MEDS: Ibuprofen 600 MG TABLET PO (20:45)
[2023-08-23] MEDS: traZODone HCL 50 MG TABLET PO ×2 (20:45→23:18)
--- NOTE | 2023-08-24 | ECG_ITS ---
Test Reason : CHECK QT INTERVAL Blood Pressure : / mmHG Vent. Rate : 056 BPM Atrial Rate : 056 BPM P-R Int : 142 ms QRS Dur : 082 ms QT Int : 420 ms P-R-T Axes : 039 043 028 degrees QTc Int : 405 ms Sinus bradycardia Otherwise normal ECG When compared with ECG of 29-JAN-2023 16:48, Vent. rate has decreased BY 33 BPM Referred By: Lis De Paz Electronically Signed By:NIK LEE MD
[2023-08-24] MEDS: Propranolol HCL 10 MG TABLET PO ×3 (01:14→14:38)
[2023-08-24] MEDS: Acetaminophen 325 MG TABLET 650 MG PO ×2 (01:26→10:30)
[2023-08-24] MEDS: LORazepam 1 MG TABLET 2 MG PO (02:02)
[2023-08-24 06:12] VITALS: RESP 16
[2023-08-24] MEDS: DULoxetine HCl 30 MG CAPSULE.DR PO (07:53)
[2023-08-24 08:07] VITALS: BP 97/61; PULSE 86; RESP 19; TEMP 36.3; O2SAT 99
--- NOTE | 2023-08-24 10:11 | PC.NURSE ---
Patients called requesting to speak with patient, patient provided with phone to call . Husbands number [phone]
--- NOTE | 2023-08-24 10:11 | MHC.CARE ---
patient is voluntary for inpatient LOC/ Placement pending
--- NOTE | 2023-08-24 10:32 | PC.NURSE ---
Medicated per mar for complaints of a headache
--- NOTE | 2023-08-24 11:27 | PC.NURSE ---
Calm and cooperative, medicated with good effect for complaints of headache. Patient reports SI, denies HI, presents with flat affect.
--- NOTE | 2023-08-24 12:41 | PC.NURSE ---
Patient to be admitted to M[facility], CV signed
[2023-08-24 14:41] VITALS: BP 102/64; PULSE 76; RESP 18; TEMP 36.3; O2SAT 98
--- NOTE | 2023-08-24 14:41 | PC.NURSE ---
pt medicated per MAR, reporting increased anxiety - MD prasad'chivo early administration of PRN propranolol, vss.
--- NOTE | 2023-08-24 16:19 | PC.NURSE ---
Report given to accepting unit
--- NOTE | 2023-08-24 18:46 | PC.NURSE ---
Patient transferred to floor by security and M3 tech
--- NOTE | 2023-08-24 19:09 | PC.NURSE ---
Pt arrived from [facility] Pod to M[facility] on a CV at 1851, skin assessment performed. Pt placed on 15 min checks.
[2023-08-24 19:10] VITALS: BP 110/68; PULSE 71; RESP 16; TEMP 36.5; O2SAT 97
[2023-08-24 21:09] VITALS: BP 109/65; PULSE 77; TEMP 36.6; O2SAT 99
[2023-08-24 21:10] VITALS: BMI 27.4
[2023-08-24] MEDS: traZODone HCL 50 MG TABLET PO (23:08)
[2023-08-24] MEDS: LORazepam 0.5 MG TABLET PO (23:08)
[2023-08-24] MEDS: hydrOXYzine HCL 25 MG TABLET PO (23:08)
--- NOTE | 2023-08-24 23:49 | PC.ADMIT ---
this is one of several [facility] admissions for this 42 year old female. legal: CV. dx: unspecified depressive d/o. unspecified anxiety d/o. was a referral from the emergency room via the CARE team. nurse to nurse, collateral information obtained prior to admission. interpreter deaf utilized for admission/orientation process. patient is primary Azeri speaking. presents with depressed mood/affect. fully oriented. reports feeling overwhelmed with depressive feelings, states she is experiencing AH and at time is seeing shadows. reports she was experiencing intrusive thoughts of wanting to but did not act on thoughts identifying family, children and her pet dog as reasons to seek out help verses following through with harm attempt. had ideation to drive car into a tree. is currently on leave from her job due to symptoms. reports poor sleep, low motivation and not attending to ADL's. no street drug use. occasional alcohol use and unable to recall when last has alcohol or drank to intoxication. does not smoke. no significant medical issues noted. safety tool completed. discussion about treatment focus held. oriented to unit. medication reconciliation completed in the ER. showered after assessment process and accepted HS medications.
[2023-08-25 08:34] LABS: Anion Gap 12 (12-20); Blood Urea Nitrogen 12 mg/dL (9-16); Carbon Dioxide 24 mmol/L (22-29); Chloride 109 mmol/L (96-108); Creatinine Clr Calc Pharmacy 89.1; Potassium 4.1 mmol/L (3.3-5.1); Sodium 141 mmol/L (135-145)
[2023-08-25 08:35] LABS: Alanine Aminotransferase 9 U/L (0-31); Albumin Level 3.9 g/dL (3.5-5.0); Alkaline Phosphatase 32 U/L (39-117); Aspartate Amino Transferase 16 U/L (5-31); Bilirubin Total 0.3 mg/dL (0.0-1.0); Calcium 9.3 mg/dL (8.4-10.2); Cholesterol 216 mg/dL (<200); Estimated Glomerular Filt Rate > 60; Glucose Fasting 80 mg/dL (60-99); HDL Cholesterol 58 mg/dL (>40); LDL Cholesterol Calculated 144 mg/dL (<100); Total Protein 6.8 g/dL (6.5-8.0); Triglycerides 70 mg/dL (<150)
[2023-08-25 08:42] LABS: TSH reflex Free T4 1.04 uIU/mL (0.32-4.0)
[2023-08-25 08:50] VITALS: BP 109/59; PULSE 104; RESP 18; TEMP 36.3; O2SAT 97
[2023-08-25] MEDS: DULoxetine HCl 30 MG CAPSULE.DR PO (08:54)
[2023-08-25] MEDS: LORazepam 0.5 MG TABLET PO (08:57)
[2023-08-25 08:59] LABS: Folate 6.1 ng/mL (> or = 4.0); Vitamin B12 445 pg/mL (200-900)
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
[2023-08-25] MEDS: hydrOXYzine HCL 25 MG TABLET PO ×2 (14:38→21:08)
[2023-08-25 18:00] VITALS: BP 111/62; PULSE 71; RESP 16; TEMP 36.5; O2SAT 97
[2023-08-25] MEDS: traZODone HCL 50 MG TABLET PO (21:08)
[2023-08-25] MEDS: Propranolol HCL 10 MG TABLET PO (21:15)
[2023-08-26 06:00] VITALS: BP 102/60; PULSE 67; RESP 16; TEMP 36.3; O2SAT 98
[2023-08-26] MEDS: Sertraline HCL 50 MG TABLET PO (08:26)
[2023-08-26] MEDS: ARIPiprazole 2 MG TABLET PO (08:26)
[2023-08-26] MEDS: DULoxetine HCl 30 MG CAPSULE.DR PO (08:26)
[2023-08-26] MEDS: clonazePAM 0.5 MG TABLET PO ×2 (13:29→18:55)
--- NOTE | 2023-08-26 16:06 | HO.PSYCHPN ---
Subjective Subjective Date of Service: 08/26/23 Reason For Visit: Depression, SI Interim History: says she is doing good. poor sleep last night, saying roommate was keeping her up. agreeable to increase HS trazodone to 100 mg. per staff, isolative, calm, pleasant. depressed, no SI. taking PRNs. appeared to have slept well. Mental Status Exam Mental Status Exam Narrative: calm, cooperative. adequately dressed in street clothes. PMA of leg bouncing. speech nml rate, amount, loudness, latency. decreased prosody. thoughts linear and logical. affect constricted, normo-intense, non-labile. mood good. no SI/SIBI/HI/AVH expressed. Diagnostics Vital Signs (24Hr): Vital Signs - 24 hr 08/25/23 18:00 08/26/23 06:00 Temperature 97.7 F 97.3 F Pulse Rate 71 67 Respiratory Rate 16 16 Blood Pressure 111/62 102/60 Pulse Oximetry 97 98 Oxygen Delivery Method Room Air Room Air BMI result Body Mass Index 27.4 Labs 08/23/23 17:00 08/25/23 07:59 Labs: Laboratory Results - last 48 hr 08/25/23 07:59 Sodium 141 Potassium 4.1 Chloride 109 H Carbon Dioxide 24 Anion Gap 12 BUN 12 Creatinine 0.81 Estim Creat Clear Calc 89.1 Estimated GFR > 60 Fasting Glucose 80 Calcium 9.3 Total Bilirubin 0.3 AST 16 ALT 9 Alkaline Phosphatase 32 L Total Protein 6.8 Albumin 3.9 Triglycerides 70 Cholesterol 216 H LDL Cholesterol, Calc 144 H HDL Cholesterol 58 Vitamin B12 445 Folate 6.1 TSH 1.04 Medications Medications Current Medications Acetaminophen (Acetaminophen 325 Mg Tablet) 650 mg PO Q6H PRN PRN Reason: Headache/Pain Mild Scale (1-3) Al Hydroxide/Mg Hydroxide (Magnesium Hydrox/Alum Hydrox 30 Ml Oral.Susp) 30 ml PO Q6H PRN PRN Reason: Heartburn/Nausea Aripiprazole (Aripiprazole 2 Mg Tablet) 2 mg PO DAILY [facility] Last Admin: 08/26/23 08:26 Dose: 2 mg Clonazepam (Clonazepam 0.5 Mg Tablet) 0.5 mg PO BID PRN PRN Reason: severe anxiety (6-10) Last Admin: 08/26/23 13:29 Dose: 0.5 mg Duloxetine HCl (Duloxetine Hcl 30 Mg Capsule.Dr) 30 mg PO DAILY [facility] Last Admin: 08/26/23 08:26 Dose: 30 mg Hydroxyzine HCl (Hydroxyzine Hcl 25 Mg Tablet) 25 mg PO Q6H PRN PRN Reason: Anxiety Last Admin: 08/25/23 21:08 Dose: 25 mg Magnesium Hydroxide (Milk Of Magnesia 30 Ml Oral.Susp) 30 ml PO DAILY PRN PRN Reason: Constipation Propranolol HCl (Propranolol Hcl 10 Mg Tablet) 10 mg PO TID PRN; Protocol PRN Reason: anxiety Last Admin: 08/25/23 21:15 Dose: 10 mg Sertraline HCl (Sertraline Hcl 50 Mg Tablet) 50 mg PO DAILY [facility] Last Admin: 08/26/23 08:26 Dose: 50 mg Trazodone HCl (Trazodone Hcl 50 Mg Tablet) 50 mg PO BEDTIME PRN PRN Reason: insomnia Trazodone HCl (Trazodone Hcl 100 Mg Tablet) 100 mg PO BEDTIME [facility] Allergies Allergies Allergy/AdvReac Type Severity Reaction Status Date / Time lamotrigine [From Lamictal] AdvReac Anaphylaxis Verified 05/15/23 22:31 Assessment & Plan Assessment & Plan (1) Chronic post-traumatic stress disorder (PTSD): Status: Acute Code(s): F43.12 - Post-traumatic stress disorder, chronic (2) Major depressive disorder, recurrent episode: Qualifiers: Major depression episode severity: severe Status: Acute Code(s): F33.9 - Major depressive disorder, recurrent, unspecified Plan 08/25: continue home meds of cymbalta, trazodone, propranolol. D/C ativan and start klonopin 0.5 BID PRN instead. start zoloft 50 mg daily and abilify 2 mg daily tomorrow. 08/26: poor sleep 2/2 loud roommate. incr trazodone to 100. otherwise continue current mgmt. Reason for continued inpatient stay Substantial Risk for: harm to self, inability to function and rapid decompensation Time Spent With Patient Time: Total time managing care of this patient today _35___ minutes.
[2023-08-26 19:30] VITALS: BP 109/64; PULSE 71; RESP 18; TEMP 36.4; O2SAT 98
[2023-08-26] MEDS: Propranolol HCL 10 MG TABLET PO (21:29)
[2023-08-26] MEDS: traZODone HCL 100 MG TABLET PO (21:29)
[2023-08-27 07:00] VITALS: BMI 23.9
[2023-08-27] MEDS: ARIPiprazole 2 MG TABLET PO (08:43)
[2023-08-27] MEDS: DULoxetine HCl 30 MG CAPSULE.DR PO (08:43)
[2023-08-27] MEDS: Sertraline HCL 50 MG TABLET PO (08:43)
[2023-08-27 10:03] VITALS: BP 101/63; PULSE 80; RESP 16; TEMP 36.7; O2SAT 97
[2023-08-27] MEDS: clonazePAM 0.5 MG TABLET PO ×2 (14:40→21:48)
--- NOTE | 2023-08-27 16:05 | P.PNPSI_ITS ---
Subjective Subjective Date of Service: 08/27/23 Reason For Visit: Depression, SI Interim History: calm, cooperative. largely flat. states she is trying to be out and about more and to go to more groups. agreeable to increase abilify to 5 mg daily. per staff, safe, poor sleep due to nightmares. isolative. slept in sensory room 2/2 loud roommate. Mental Status Exam Mental Status Exam Narrative: calm, cooperative. adequately dressed in street clothes. no PMA/PMR. speech nml rate, amount, loudness, latency. decreased prosody. thoughts linear and logical. affect constricted, normo-intense, non-labile. mood calm. no SI/SIBI/HI expressed. no AVH. Diagnostics Vital Signs (24Hr): Vital Signs - 24 hr 08/26/23 19:30 08/27/23 10:03 Temperature 97.5 F 98.0 F Pulse Rate 71 80 Respiratory Rate 18 16 Blood Pressure 109/64 101/63 Pulse Oximetry 98 97 Oxygen Delivery Method Room Air Room Air BMI result Body Mass Index 23.9 Labs 08/23/23 17:00 08/25/23 07:59 Medications Medications Current Medications Acetaminophen (Acetaminophen 325 Mg Tablet) 650 mg PO Q6H PRN PRN Reason: Headache/Pain Mild Scale (1-3) Al Hydroxide/Mg Hydroxide (Magnesium Hydrox/Alum Hydrox 30 Ml Oral.Susp) 30 ml PO Q6H PRN PRN Reason: Heartburn/Nausea Aripiprazole (Aripiprazole 5 Mg Tablet) 5 mg PO DAILY [facility] Clonazepam (Clonazepam 0.5 Mg Tablet) 0.5 mg PO BID PRN PRN Reason: severe anxiety (6-10) Last Admin: 08/27/23 14:40 Dose: 0.5 mg Duloxetine HCl (Duloxetine Hcl 30 Mg Capsule.Dr) 30 mg PO DAILY [facility] Last Admin: 08/27/23 08:43 Dose: 30 mg Hydroxyzine HCl (Hydroxyzine Hcl 25 Mg Tablet) 25 mg PO Q6H PRN PRN Reason: Anxiety Last Admin: 08/25/23 21:08 Dose: 25 mg Magnesium Hydroxide (Milk Of Magnesia 30 Ml Oral.Susp) 30 ml PO DAILY PRN PRN Reason: Constipation Propranolol HCl (Propranolol Hcl 10 Mg Tablet) 10 mg PO TID PRN; Protocol PRN Reason: anxiety Last Admin: 08/26/23 21:29 Dose: 10 mg Sertraline HCl (Sertraline Hcl 50 Mg Tablet) 50 mg PO DAILY [facility] Last Admin: 08/27/23 08:43 Dose: 50 mg Trazodone HCl (Trazodone Hcl 50 Mg Tablet) 50 mg PO BEDTIME PRN PRN Reason: insomnia Trazodone HCl (Trazodone Hcl 100 Mg Tablet) 100 mg PO BEDTIME [facility] Last Admin: 08/26/23 21:29 Dose: 100 mg Allergies Allergies Allergy/AdvReac Type Severity Reaction Status Date / Time lamotrigine [From Lamictal] AdvReac Anaphylaxis Verified 05/15/23 22:31 Assessment & Plan Assessment & Plan (1) Chronic post-traumatic stress disorder (PTSD): Status: Acute Code(s): F43.12 - Post-traumatic stress disorder, chronic (2) Major depressive disorder, recurrent episode: Qualifiers: Major depression episode severity: severe Status: Acute Code(s): F33.9 - Major depressive disorder, recurrent, unspecified Plan 08/25: continue home meds of cymbalta, trazodone, propranolol. D/C ativan and start klonopin 0.5 BID PRN instead. start zoloft 50 mg daily and abilify 2 mg daily tomorrow. 08/26: poor sleep 2/2 loud roommate. incr trazodone to 100. otherwise continue current mgmt. 08/27: pt reports sleeping better on trazodone 100 last night. agreeable to increase abilify to 5 mg as of tomorrow. Reason for continued inpatient stay Substantial Risk for: inability to function and rapid decompensation Time Spent With Patient Time: Total time managing care of this patient today __35__ minutes.
[2023-08-27 18:00] VITALS: BP 112/75; PULSE 78; RESP 16; TEMP 36.6; O2SAT 98
[2023-08-27] MEDS: traZODone HCL 100 MG TABLET PO (21:45)
[2023-08-28 08:00] VITALS: BP 109/65; PULSE 84; RESP 16; TEMP 36.6; O2SAT 95
[2023-08-28] MEDS: Sertraline HCL 50 MG TABLET PO (09:43)
[2023-08-28] MEDS: ARIPiprazole 5 MG TABLET PO (09:43)
[2023-08-28] MEDS: DULoxetine HCl 30 MG CAPSULE.DR PO (09:43)
[2023-08-28] MEDS: clonazePAM 0.5 MG TABLET PO (09:48)
--- NOTE | 2023-08-28 14:19 | HO.PSYCHPN ---
Subjective Subjective Date of Service: 08/28/23 Reason For Visit: Depression, SI Interim History: seen with certified court/medical interpreter and TINO dickson. calm, cooperative. prognostic questions. feeling OK but not better to speak of. agreeable to increase zoloft to 75 mg as of tomorrow. unclear if deidre is sedating for her - she was napping late morning when MD went to get her for interview. reports she slept well last night. discussing discharge mid next week. per staff, isolative. meds and meals compliant. sleeping well. Mental Status Exam Mental Status Exam Narrative: calm, cooperative. adequately dressed in street clothes. no PMA/PMR. speech nml rate, amount, loudness, latency. decreased prosody. thoughts linear and logical. affect constricted, normo-intense, non-labile. mood OK. no SI/SIBI/HI/AVH expressed. Diagnostics Vital Signs (24Hr): Vital Signs - 24 hr 08/27/23 18:00 08/28/23 08:00 Temperature 97.9 F 97.9 F Pulse Rate 78 84 Respiratory Rate 16 16 Blood Pressure 112/75 109/65 Pulse Oximetry 98 95 Oxygen Delivery Method Room Air Room Air BMI result Body Mass Index 23.9 Labs 08/23/23 17:00 08/25/23 07:59 Medications Medications Current Medications Acetaminophen (Acetaminophen 325 Mg Tablet) 650 mg PO Q6H PRN PRN Reason: Headache/Pain Mild Scale (1-3) Al Hydroxide/Mg Hydroxide (Magnesium Hydrox/Alum Hydrox 30 Ml Oral.Susp) 30 ml PO Q6H PRN PRN Reason: Heartburn/Nausea Aripiprazole (Aripiprazole 5 Mg Tablet) 5 mg PO DAILY [facility] Last Admin: 08/28/23 09:43 Dose: 5 mg Clonazepam (Clonazepam 0.5 Mg Tablet) 0.5 mg PO BID PRN PRN Reason: severe anxiety (6-10) Last Admin: 08/28/23 09:48 Dose: 0.5 mg Duloxetine HCl (Duloxetine Hcl 30 Mg Capsule.Dr) 30 mg PO DAILY [facility] Last Admin: 08/28/23 09:43 Dose: 30 mg Hydroxyzine HCl (Hydroxyzine Hcl 25 Mg Tablet) 25 mg PO Q6H PRN PRN Reason: Anxiety Last Admin: 08/25/23 21:08 Dose: 25 mg Magnesium Hydroxide (Milk Of Magnesia 30 Ml Oral.Susp) 30 ml PO DAILY PRN PRN Reason: Constipation Propranolol HCl (Propranolol Hcl 10 Mg Tablet) 10 mg PO TID PRN; Protocol PRN Reason: anxiety Last Admin: 08/26/23 21:29 Dose: 10 mg Sertraline HCl (Sertraline Hcl 25 Mg Tablet) 75 mg PO DAILY [facility] Trazodone HCl (Trazodone Hcl 50 Mg Tablet) 50 mg PO BEDTIME PRN PRN Reason: insomnia Trazodone HCl (Trazodone Hcl 100 Mg Tablet) 100 mg PO BEDTIME [facility] Last Admin: 08/27/23 21:45 Dose: 100 mg Allergies Allergies Allergy/AdvReac Type Severity Reaction Status Date / Time lamotrigine [From Lamictal] AdvReac Anaphylaxis Verified 05/15/23 22:31 Assessment & Plan Assessment & Plan (1) Chronic post-traumatic stress disorder (PTSD): Status: Acute Code(s): F43.12 - Post-traumatic stress disorder, chronic (2) Major depressive disorder, recurrent episode: Qualifiers: Major depression episode severity: severe Status: Acute Code(s): F33.9 - Major depressive disorder, recurrent, unspecified Plan 08/25: continue home meds of cymbalta, trazodone, propranolol. D/C ativan and start klonopin 0.5 BID PRN instead. start zoloft 50 mg daily and abilify 2 mg daily tomorrow. 08/26: poor sleep 2/2 loud roommate. incr trazodone to 100. otherwise continue current mgmt. 08/27: pt reports sleeping better on trazodone 100 last night. agreeable to increase abilify to 5 mg as of tomorrow. 08/28: increase zoloft to 75 mg as of tomorrow. otherwise continue current mgmt. feeling OK but not better. Reason for continued inpatient stay Substantial Risk for: inability to function and rapid decompensation Time Spent With Patient Time: Total time managing care of this patient today __35__ minutes.
[2023-08-28] MEDS: hydrOXYzine HCL 25 MG TABLET PO (15:50)
[2023-08-28 19:15] VITALS: BP 119/55; PULSE 87; RESP 16; TEMP 36.3; O2SAT 99
[2023-08-28] MEDS: traZODone HCL 100 MG TABLET PO (20:33)
[2023-08-29] MEDS: ARIPiprazole 5 MG TABLET PO (09:16)
[2023-08-29] MEDS: DULoxetine HCl 30 MG CAPSULE.DR PO (09:16)
[2023-08-29] MEDS: Sertraline HCL 25 MG TABLET 75 MG PO (09:17)
[2023-08-29] MEDS: clonazePAM 0.5 MG TABLET PO (09:20)
[2023-08-29] MEDS: hydrOXYzine HCL 25 MG TABLET PO (17:05)
[2023-08-29 20:00] VITALS: BP 118/82; PULSE 84; RESP 18; TEMP 36.5; O2SAT 98
[2023-08-29] MEDS: traZODone HCL 100 MG TABLET PO (20:47)
--- NOTE | 2023-08-29 21:58 | P.PNPSI_ITS ---
Subjective Subjective Date of Service: 08/29/23 Reason For Visit: Depression, SI Subjective Notes: Conditional Voluntary Interim History: Patient depressed withdrawn on sertraline Medication Compliance: Yes Mental Status Exam Mental Status Exam Narrative: Patient come cooperative some anxiety noted denies SI HI depressed constricted no psychotic symptoms Diagnostics Vital Signs (24Hr): Vital Signs - 24 hr 08/29/23 20:00 Temperature 97.7 F Pulse Rate 84 Respiratory Rate 18 Blood Pressure 118/82 Pulse Oximetry 98 Oxygen Delivery Method Room Air BMI result Body Mass Index 23.9 Labs 08/23/23 17:00 08/25/23 07:59 Medications Medications Current Medications Acetaminophen (Acetaminophen 325 Mg Tablet) 650 mg PO Q6H PRN PRN Reason: Headache/Pain Mild Scale (1-3) Al Hydroxide/Mg Hydroxide (Magnesium Hydrox/Alum Hydrox 30 Ml Oral.Susp) 30 ml PO Q6H PRN PRN Reason: Heartburn/Nausea Aripiprazole (Aripiprazole 5 Mg Tablet) 5 mg PO DAILY [facility] Last Admin: 08/29/23 09:16 Dose: 5 mg Clonazepam (Clonazepam 0.5 Mg Tablet) 0.5 mg PO BID PRN PRN Reason: severe anxiety (6-10) Last Admin: 08/29/23 09:20 Dose: 0.5 mg Duloxetine HCl (Duloxetine Hcl 30 Mg Capsule.Dr) 30 mg PO DAILY [facility] Last Admin: 08/29/23 09:16 Dose: 30 mg Hydroxyzine HCl (Hydroxyzine Hcl 25 Mg Tablet) 25 mg PO Q6H PRN PRN Reason: Anxiety Last Admin: 08/29/23 17:05 Dose: 25 mg Magnesium Hydroxide (Milk Of Magnesia 30 Ml Oral.Susp) 30 ml PO DAILY PRN PRN Reason: Constipation Propranolol HCl (Propranolol Hcl 10 Mg Tablet) 10 mg PO TID PRN; Protocol PRN Reason: anxiety Last Admin: 08/26/23 21:29 Dose: 10 mg Sertraline HCl (Sertraline Hcl 25 Mg Tablet) 75 mg PO DAILY [facility] Last Admin: 08/29/23 09:17 Dose: 75 mg Trazodone HCl (Trazodone Hcl 50 Mg Tablet) 50 mg PO BEDTIME PRN PRN Reason: insomnia Trazodone HCl (Trazodone Hcl 100 Mg Tablet) 100 mg PO BEDTIME [facility] Last Admin: 08/29/23 20:47 Dose: 100 mg Allergies Allergies Allergy/AdvReac Type Severity Reaction Status Date / Time lamotrigine [From Lamictal] AdvReac Anaphylaxis Verified 05/15/23 22:31 Assessment & Plan Assessment & Plan (1) Chronic post-traumatic stress disorder (PTSD): Status: Acute Code(s): F43.12 - Post-traumatic stress disorder, chronic (2) Major depressive disorder, recurrent episode: Qualifiers: Major depression episode severity: severe Status: Acute Code(s): F33.9 - Major depressive disorder, recurrent, unspecified Plan 08/25: continue home meds of cymbalta, trazodone, propranolol. D/C ativan and start klonopin 0.5 BID PRN instead. start zoloft 50 mg daily and abilify 2 mg daily tomorrow. 08/26: poor sleep 2/2 loud roommate. incr trazodone to 100. otherwise continue current mgmt. 08/27: pt reports sleeping better on trazodone 100 last night. agreeable to increase abilify to 5 mg as of tomorrow. 08/28: increase zoloft to 75 mg as of tomorrow. otherwise continue current mgmt. feeling OK but not better. [id number] Continue plan of care Reason for continued inpatient stay Substantial Risk for: harm to self and rapid decompensation Time Spent With Patient Time: Total time managing care of this patient today ____ minutes.
[2023-08-29] MEDS: traZODone HCL 50 MG TABLET PO (22:44)
[2023-08-30 08:00] VITALS: BP 99/62; PULSE 83; RESP 16; TEMP 36.6; O2SAT 97
[2023-08-30] MEDS: clonazePAM 0.5 MG TABLET PO (09:37)
[2023-08-30] MEDS: DULoxetine HCl 30 MG CAPSULE.DR PO (09:37)
[2023-08-30] MEDS: Sertraline HCL 25 MG TABLET 75 MG PO (09:37)
[2023-08-30] MEDS: ARIPiprazole 5 MG TABLET PO (09:38)
[2023-08-30 20:00] VITALS: BP 118/81; PULSE 98; RESP 18; TEMP 36.7; O2SAT 97
[2023-08-30] MEDS: traZODone HCL 100 MG TABLET PO (20:54)
--- NOTE | 2023-08-30 21:28 | P.PNPSI_ITS ---
Subjective Subjective Date of Service: 08/30/23 Reason For Visit: Depression, SI Subjective Notes: Conditional Voluntary Interim History: Patient seen with accounting analyst had mood depressed but future oriented. Feeling perhaps somewhat better does not mind taking Abilify in the morning has been prescribed Cymbalta sertraline Abilify at 5 mg Medication Compliance: Yes Review of Systems Acute medical concerns: Yes Mental Status Exam Mental Status Exam Narrative: Patient casually dressed appropriately groomed cooperative to the interview mood depressed affect constricted speech normal rate and volume. No self-harming thoughts hallucinations psychotic material. Present impulse control intact Diagnostics Vital Signs (24Hr): Vital Signs - 24 hr 08/30/23 08:00 08/30/23 20:00 Temperature 97.8 F 98.1 F Pulse Rate 83 98 Respiratory Rate 16 18 Blood Pressure 99/62 118/81 Pulse Oximetry 97 97 Oxygen Delivery Method Room Air Room Air BMI result Body Mass Index 23.9 Labs 08/23/23 17:00 08/25/23 07:59 Medications Medications Current Medications Acetaminophen (Acetaminophen 325 Mg Tablet) 650 mg PO Q6H PRN PRN Reason: Headache/Pain Mild Scale (1-3) Al Hydroxide/Mg Hydroxide (Magnesium Hydrox/Alum Hydrox 30 Ml Oral.Susp) 30 ml PO Q6H PRN PRN Reason: Heartburn/Nausea Aripiprazole (Aripiprazole 5 Mg Tablet) 5 mg PO DAILY [facility] Last Admin: 08/30/23 09:38 Dose: 5 mg Duloxetine HCl (Duloxetine Hcl 30 Mg Capsule.Dr) 30 mg PO DAILY [facility] Last Admin: 08/30/23 09:37 Dose: 30 mg Hydroxyzine HCl (Hydroxyzine Hcl 25 Mg Tablet) 25 mg PO Q6H PRN PRN Reason: Anxiety Last Admin: 08/29/23 17:05 Dose: 25 mg Magnesium Hydroxide (Milk Of Magnesia 30 Ml Oral.Susp) 30 ml PO DAILY PRN PRN Reason: Constipation Propranolol HCl (Propranolol Hcl 10 Mg Tablet) 10 mg PO TID PRN; Protocol PRN Reason: anxiety Last Admin: 08/26/23 21:29 Dose: 10 mg Sertraline HCl (Sertraline Hcl 25 Mg Tablet) 75 mg PO DAILY [facility] Last Admin: 08/30/23 09:37 Dose: 75 mg Trazodone HCl (Trazodone Hcl 50 Mg Tablet) 50 mg PO BEDTIME PRN PRN Reason: insomnia Last Admin: 08/29/23 22:44 Dose: 50 mg Trazodone HCl (Trazodone Hcl 100 Mg Tablet) 100 mg PO BEDTIME [facility] Last Admin: 08/30/23 20:54 Dose: 100 mg Allergies Allergies Allergy/AdvReac Type Severity Reaction Status Date / Time lamotrigine [From Lamictal] AdvReac Anaphylaxis Verified 05/15/23 22:31 Assessment & Plan Assessment & Plan (1) Chronic post-traumatic stress disorder (PTSD): Status: Acute Code(s): F43.12 - Post-traumatic stress disorder, chronic (2) Major depressive disorder, recurrent episode: Qualifiers: Major depression episode severity: severe Status: Acute Code(s): F33.9 - Major depressive disorder, recurrent, unspecified Plan 08/25: continue home meds of cymbalta, trazodone, propranolol. D/C ativan and start klonopin 0.5 BID PRN instead. start zoloft 50 mg daily and abilify 2 mg daily tomorrow. 08/26: poor sleep 2/2 loud roommate. incr trazodone to 100. otherwise continue current mgmt. 08/27: pt reports sleeping better on trazodone 100 last night. agreeable to increase abilify to 5 mg as of tomorrow. 08/28: increase zoloft to 75 mg as of tomorrow. otherwise continue current mgmt. feeling OK but not better. [id number] Continue plan of care 08/30/2023 Mood somewhat improved remains constricted unclear reason for combination sertraline and Cymbalta will leave to primary treating provider Reason for continued inpatient stay Substantial Risk for: harm to self and rapid decompensation Time Spent With Patient Time: Total time managing care of this patient today ____ minutes.
[2023-08-30] MEDS: traZODone HCL 50 MG TABLET PO (21:45)
[2023-08-31 08:18] VITALS: BP 97/55; PULSE 78; RESP 16; TEMP 36.4; O2SAT 96
[2023-08-31] MEDS: DULoxetine HCl 30 MG CAPSULE.DR PO (08:52)
[2023-08-31] MEDS: Sertraline HCL 25 MG TABLET 75 MG PO (08:52)
[2023-08-31] MEDS: ARIPiprazole 5 MG TABLET PO (08:52)
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
[2023-08-31] MEDS: clonazePAM 0.5 MG TABLET PO (16:06)
[2023-08-31] MEDS: Milk of Magnesia 30 ML ORAL.SUSP PO (16:06)
[2023-08-31 19:05] VITALS: BP 128/85; PULSE 95; RESP 14; TEMP 36.6; O2SAT 97
[2023-08-31] MEDS: traZODone HCL 100 MG TABLET PO (20:32)
[2023-08-31] MEDS: traZODone HCL 50 MG TABLET PO (21:30)
[2023-09-01] MEDS: clonazePAM 0.5 MG TABLET PO (08:41)
[2023-09-01] MEDS: Sertraline HCL 25 MG TABLET 75 MG PO (08:41)
[2023-09-01] MEDS: DULoxetine HCl 30 MG CAPSULE.DR PO (08:41)
[2023-09-01] MEDS: ARIPiprazole 5 MG TABLET PO (08:41)
[2023-09-01 08:48] VITALS: BP 117/69; PULSE 84; RESP 16; TEMP 36.7; O2SAT 97
== END 2023-09-01 12:23 | disposition home or self-care (01) | DRG 885 ==
LOC: HO.ED 16:59 → HO.PADLT16 08-24 18:38
PROVIDERS: Physician Assistant; Admitting Provider Psychiatry & Neurology Psychiatry; Emergency Provider Emergency Medicine; PCP Internal Medicine; Visit Provider Psychiatry & Neurology Psychiatry
DX: F33.9 Major depressive disorder, recurrent, unspecified (principal); R45.851 Suicidal ideations; F43.12 Post-traumatic stress disorder, chronic; Z62.810 Personal history of physical and sexual abuse in childhood; Z20.822 Contact with and (suspected) exposure to COVID-19; Z79.899 Other long term (current) drug therapy
CPT/HCPCS: 36415; 80053; 80061; 80143; 80179; 80307; 81001; 81025; 82607; 82746; 84443; 85025; 87635; 93005; 99285; S9485

== ENCOUNTER → 2023-08-24 18:37 | Outpatient (BNV) | payer OTHER, SELFPAY | PROVIDERS: Admitting Provider Psychiatry & Neurology Psychiatry; Emergency Provider Emergency Medicine; PCP Internal Medicine; Visit Provider Psychiatry & Neurology Psychiatry | DX: F33.2 Major depressive disorder, recurrent severe without psychotic features (principal); F43.12 Post-traumatic stress disorder, chronic | CPT/HCPCS: 99231 ==

== ENCOUNTER → 2023-08-24 18:37 | Outpatient (BNV) | payer OTHER, SELFPAY | PROVIDERS: Admitting Provider Psychiatry & Neurology Psychiatry; Emergency Provider Emergency Medicine; PCP Internal Medicine; Visit Provider Psychiatry & Neurology Psychiatry | DX: F33.2 Major depressive disorder, recurrent severe without psychotic features (principal); F43.12 Post-traumatic stress disorder, chronic | CPT/HCPCS: 90792; 99231; 99232; 99239 ==

== ENCOUNTER 2024-04-21 15:08 | Emergency (ER) | payer OTHER, SELFPAY ==
--- NOTE | ~2024-04-21 | US_ITS ---
EXAMINATION: US ABDOMEN LIMITED CLINICAL INFORMATION: Upper quadrant epigastric pain. COMPARISON: None available. TECHNIQUE: Real-time imaging of the right upper quadrant abdominal viscera. FINDINGS: GALLBLADDER: Normal. The gallbladder is physiologically distended without evidence of stones, sludge, polyps, wall thickening or pericholecystic fluid. Sonographic Ibanez sign is negative. COMMON BILE DUCT: Normal in caliber measuring 0.6 cm in diameter. FREE FLUID: None. US/US abdomen limited IMPRESSION: Unremarkable examination.
--- NOTE | ~2024-04-21 | XR_ITS ---
EXAMINATION: XR ABDOMEN KUB CLINICAL INDICATION: Right upper quadrant pain. Constipation. COMPARISON: None available. TECHNIQUE: 3 radiographs of the abdomen. FINDINGS: The bowel gas pattern is normal with no evidence of ileus or obstruction. No unusual soft tissue calcifications are noted. The bones are unremarkable. XR/XR KUB IMPRESSION: Unremarkable examination.
[2024-04-21 15:26] VITALS: BP 113/84; PULSE 82; RESP 19; TEMP 36.5; O2SAT 100; BMI 27.7
--- NOTE | 2024-04-21 15:27 | ED.GENADULT ---
HPI - General Adult General Chief complaint: Abdominal Pain Stated complaint: poor appetite,hip, epigastric pain Time Seen by Provider: 04/21/24 21:02 Source: patient Mode of arrival: ambulatory Limitations: no limitations History of Present Illness ED Provider: Dr. Micaela Alcocer HPI narrative: Patient comes to the emergency room complaining of epigastric pain after eating. Patient states that whenever she eats something, almost immediately she starts having epigastric burning sensation. Patient denies vomiting or diarrhea, complaining of occasional nausea. Patient denies fever chills, no abdominal pain without eating, no URI or UTI symptoms. Related Data Home Medications ?Medication ?Instructions ?Recorded ?Confirmed duloxetine 30 mg capsule,delayed 30 mg PO DAILY 08/23/23 08/23/23 release Previous Rx's ?Medication ?Instructions ?Recorded propranolol 10 mg tablet 10 mg PO TID PRN anxiety #21 tabs 05/22/23 trazodone 50 mg tablet 50 mg PO BEDTIME MRX1 #60 tabs 05/22/23 aripiprazole 5 mg tablet (Abilify) 5 mg PO DAILY 30 days #30 tabs 08/31/23 sertraline 25 mg tablet 75 mg (3 x 25 mg) PO DAILY 30 days 08/31/23 #90 tabs trazodone 100 mg tablet 100 mg PO BEDTIME 30 days #30 tabs 08/31/23 omeprazole 20 mg capsule,delayed 20 mg PO DAILY #90 caps 04/21/24 release ondansetron HCl 4 mg tablet 4 mg PO Q6H PRN nausea and 04/21/24 vomiting #14 tabs Allergies Allergy/AdvReac Type Severity Reaction Status Date / Time lamotrigine [From Lamictal] AdvReac Anaphylaxis Verified 04/21/24 15:32 Review of Systems Review of Systems: Constitutional : No Weight loss, No Fever, No Chills, No Night Sweats, No Fatigue, No Malaise ENT/Mouth : No Hearing loss, No Ear Pain, No Nasal Congestion, No Sinus Pain, No Hoarseness, No sore throat, No Rhinorrhea, No Swallowing Difficulty Eyes: No Eye Pain, No Swelling, No Redness, No Foreign Body, No Discharge, No Vision Changes Cardiovascular : No Chest Pain, No SOB, No Dyspnea on Exertion, No Orthopnea, No Edema, No Palpitations Respiratory : No Cough, No Sputum, No Wheezing, No Smoke Exposure, No Dyspnea Gastrointestinal : Complaining of intermittent Nausea, No Vomiting, complaining of chronic Constipation, complaining of epigastric pain with eating or drinking, No Hematochezia, No Melena Genitourinary : no irregular bleeding, No Dysuria, No Urinary Frequency, No Hematuria, No Urinary Incontinence, No Urgency, No Flank Pain, No Urinary Flow Changes, No Hesitancy Musculoskeletal : No joint pain, No Myalgias, No Joint Swelling Skin : No Skin Lesions, No rash Neuro : No Weakness, No Numbness, No Paresthesias, No Loss of Consciousness, No Dizziness, No Headache Psych : No Anxiety/Panic, No Depression, No SI/HI/AH/VH, No Social Issues, Heme/Lymph: No Bruising, No Bleeding,No Lymphadenopathy Endocrine : No Polyuria, No Polydipsia, No Temperature Intolerance PMFSH Past Medical History Medical History No known health problems Social History Social History Household Members: Spouse and Children Housing: Homeless Do you presently have visiting nurse or other home services: No Patient Tobacco Use Status: Never used Tobacco e-Cigarette/Vaping Use: Never Used Advance Directives: No Advance Directives Information Provided: Yes Do you have a plan to hurt others: No Plan service: No Sexual orientation: Straight/Heterosexual Physical Exam ED Vital Signs: Vital Signs - 24 hr 04/21/24 15:26 04/21/24 20:39 Temperature 97.7 F 97.8 F Pulse Rate 82 64 Respiratory Rate 19 16 Blood Pressure 113/84 114/72 Pulse Oximetry 100 100 Oxygen Delivery Method Room Air Room Air BMI result Body Mass Index 27.7 Const Other: Appearance: Alert. Oriented X3. No acute distress. Eyes: Pupils equal, round and reactive to light. ENT: Pharynx normal. Neck: Normal inspection. Neck supple. No lymph nodes noted. No crepitus CVS: Normal heart rate and rhythm. Pulses normal. Normal S1 and S2 Respiratory: No respiratory distress. Breath sounds normal. No Wheezing. No rales Abdomen: Soft and nontender. No rigidity. No distention. Skin: Skin warm and dry. Normal skin color. Normal skin turgor. Extremities: No lower extremity edema. No Lacerations. No Rash Neuro: Oriented X 3. No motor deficit. No sensory deficit. Moving all extremities. No slurred speech. CN 2 through 12 grossly intact Psych: calm, cooperative, normal affect Course Course Course Narrative: This is an RME: Additional HPI, ROS, PE not included below will be deferred to primary provider. RME assessment and note performed by: Katerine Hernandez PA-C This is a [id number], with a hx of MDD, PTSD, who presents to the ER with a complaint of epigastric pain, nausea, decreased appetite, and joint pain x 4 days. Has not had a bowel movement for 7 days. Plan: Labs, EKG, x-ray KUB Medical Decision Making Medical Decision Making [facility] Narrative: -my interpretation of labs: Normal hematology and chemistry, normal lipase, serology negative for flu and COVID -my interpretation of KUB: No obvious abnormality, no free air observe -ultrasound radiology report: No abnormality -given the patient's history and symptoms, patient may likely have either gastritis or a peptic ulcer. Patient has never been treated for either condition. Also, discussed with the patient that H pylori may be a possibility which can be evaluated and treated for H pylori by her PCP if indicated. -patient will be given p.o. famotidine, viscous lidocaine with Maalox and under the tongue Zofran. -patient agreeable to start a long-term treatment with omeprazole. Patient understands that she needs to follow-up with her PCP and possibly be referred to gastroenterology if the treatment is not successful. -also, patient has significant history of depression. Patient states that she is currently being treated, but still feels depressed, denies SI or HI. The patient may be contributing to patient's symptoms Differential Diagnosis Differential Diagnoses: The differential diagnosis associated with the presentation includes (Gastritis, peptic ulcer disease, depression) Admission/Observation Consideration of admission/observation: Escalation of care including admission/observation considered (Given patient's initials symptoms, observation was considered) Lab Data [facility] Lab Attestation statement: I reviewed the patient's lab results. 04/21/24 16:18 04/21/24 16:18 Labs: Lab Results 04/21/24 Range/Units 16:18 WBC 4.4 L (4.8-10.8) X10*3/uL RBC 5.06 (4.20-5.50) X10*6/uL Hgb 12.6 (12.0-16.0) g/dl Hct 39.3 (37.0-47.0) % MCV 77.7 L (80.0-98.0) fL MCH 24.9 L (27.0-33.0) pg MCHC 32.1 (31.0-35.0) g/dl RDW 14.7 (11.0-16.0) % Plt Count 281 (160-400) X10*3/uL MPV 9.5 (9.4-12.3) fL Immature Gran % (Auto) 0.2 (0.0-0.4) % Neut % (Auto) 40.6 L (45-73) % Lymph % (Auto) 46.6 H (20-40) % [place] % (Auto) 9.6 (2-11) % Eos % (Auto) 1.4 (0-4) % Baso % (Auto) 1.6 (0-2) % Lymph # (Auto) 2.0 (1.2-4.9) X10*3/uL [place] # (Auto) 0.4 (0.1-1.2) X10*3/uL Eos # (Auto) 0.1 (0.0-0.4) X10*3/uL Baso # (Auto) 0.1 (0.0-0.2) X10*3/uL Abs Immat Gran (auto) 0.01 (0.00-0.03) X10*3/uL Absolute Neuts (auto) 1.8 L (2.0-8.3) x10*3/uL Absolute Nucleated RBC 0.000 (0.0-0.012) X10*3/uL Nucleated RBC % (auto) 0.0 (0.0-0.2) /100WBC Sodium 136 (135-145) mmol/L Potassium 3.7 (3.3-5.1) mmol/L Chloride 103 (96-108) mmol/L Carbon Dioxide 28 (22-29) mmol/L Anion Gap 9 L (12-20) BUN 12 (9-16) mg/dL Creatinine 0.93 (0.5-1.4) mg/dL Estim Creat Clear Calc 77.3 Estimated GFR > 60 Random Glucose 89 (60-115) mg/dL Calcium 9.3 (8.4-10.2) mg/dL Magnesium 2.0 (1.6-2.6) mg/dL Total Bilirubin 0.4 (0.0-1.0) mg/dL Direct Bilirubin 0.1 (0.0-0.5) mg/dL AST 16 (5-31) U/L ALT 9 (0-31) U/L Alkaline Phosphatase 35 L (39-117) U/L Troponin I High Sens < 2.7 (<3.5-17.0) ng/L Total Protein 7.8 (6.5-8.0) g/dL Albumin 4.3 (3.5-5.0) g/dL Lipase 23 (8-78) U/L Influenza Type A (PCR) NEGATIVE (Negative) Influenza Type B (PCR) NEGATIVE (Negative) RSV RNA Qual (PCR) NEGATIVE (Negative) SARS-CoV-2 RNA (RT-PCR) NEGATIVE (Negative) Independent Interpretation I performed an independent interpretation of an: Plain X-Ray Radiology Impression Discussion of test interpretation with radiology: I have reviewed the radiologist's reading. Radiologist Impression: FINDINGS: The bowel gas pattern is normal with no evidence of ileus or obstruction. No unusual soft tissue calcifications are noted. The bones are unremarkable. XR/XR KUB IMPRESSION: Unremarkable examination. US ABDOMEN LIMITED CLINICAL INFORMATION: Upper quadrant epigastric pain. COMPARISON: None available. TECHNIQUE: Real-time imaging of the right upper quadrant abdominal viscera. FINDINGS: GALLBLADDER: Normal. The gallbladder is physiologically distended without evidence of stones, sludge, polyps, wall thickening or pericholecystic fluid. Sonographic Ibanez sign is negative. COMMON BILE DUCT: Normal in caliber measuring 0.6 cm in diameter. FREE FLUID: None. US/US abdomen limited IMPRESSION: Unremarkable examination. Critical Care Time Critical Care Time Critical Care Time: Yes Total Critical Care Time: 30 Attestation: I have personally provided critical care time. Time includes review of lab data, radiology results, discussion with consultants, and monitoring for potential decompensation. Intervention performed as documented. Discharge Plan Discharge Clinical Impression: Peptic ulcer Patient Disposition: Home, Self-Care Instructions: Peptic Ulcer (ED), Diet for Stomach Ulcers and Gastritis (ED) Additional Instructions: Please follow-up with your primary care physician tomorrow. If you have any worsening or new symptoms, please return to the emergency room or call 911 Prescriptions: New omeprazole 20 mg capsule,delayed release(DR/EC) 20 mg PO DAILY Qty: 90 0RF ondansetron HCl 4 mg tablet 4 mg PO Q6H PRN (Reason: nausea and vomiting) Qty: 14 0RF No Action trazodone 50 mg Tablet 50 mg PO BEDTIME MRX1 Qty: 60 0RF propranolol 10 mg Tablet 10 mg PO TID PRN (Reason: anxiety) Qty: 21 1RF Protocol: Hold for SBP/HR < HOLD for SBP < : 90 HOLD for HR < : 60 duloxetine 30 mg capsule,delayed release(DR/EC) 30 mg PO DAILY trazodone 100 mg Tablet 100 mg PO BEDTIME 30 Days Qty: 30 0RF sertraline 25 mg Tablet 75 mg PO DAILY 30 Days Qty: 90 0RF aripiprazole [Abilify] 5 mg Tablet 5 mg PO DAILY 30 Days Qty: 30 0RF Print Language: Slovak
--- NOTE | 2024-04-21 15:30 | ECG_ITS ---
Test Reason : EPIGASTRIC PAIN Blood Pressure : / mmHG Vent. Rate : 076 BPM Atrial Rate : 076 BPM P-R Int : 124 ms QRS Dur : 082 ms QT Int : 380 ms P-R-T Axes : 060 016 010 degrees QTc Int : 427 ms Normal sinus rhythm Normal ECG When compared with ECG of 24-AUG-2023 12:09, No significant change was found Referred By: Katerine Hernandez Electronically Signed By:JEWEL LANDRUM
--- NOTE | 2024-04-21 15:43 | MHC.EDTECH ---
called patient for EKG, patient not in waiting room. possible patient is in imaging.
[2024-04-21 16:27] LABS: Basophils Absolute Auto 0.1 X10*3/uL (0.0-0.2); Basophils Percent Auto 1.6 % (0-2); Eosinophils Absolute Auto 0.1 X10*3/uL (0.0-0.4); Eosinophils Percent Auto 1.4 % (0-4); Hematocrit 39.3 % (37.0-47.0); Hemoglobin 12.6 g/dl (12.0-16.0); Imm Gran Abs Auto 0.01 X10*3/uL (0.00-0.03); Imm Gran Pct Auto 0.2 % (0.0-0.4); Lymphocytes Percent Auto 46.6 % (20-40); MANUAL DIFF FLAG NO; Mean Corpuscular HGB Conc 32.1 g/dl (31.0-35.0); Mean Corpuscular Hemoglobin 24.9 pg (27.0-33.0); Mean Corpuscular Volume 77.7 fL (80.0-98.0); Mean Platelet Volume 9.5 fL (9.4-12.3); Monocytes Absolute Auto 0.4 X10*3/uL (0.1-1.2); Monocytes Percent Auto 9.6 % (2-11); Neutrophils Absolute Auto 1.8 x10*3/uL (2.0-8.3); Neutrophils Percent Auto 40.6 % (45-73); Platelet Count 281 X10*3/uL (160-400); Red Blood Count 5.06 X10*6/uL (4.20-5.50); Red Cell Distribution Width 14.7 % (11.0-16.0); White Blood Count 4.4 X10*3/uL (4.8-10.8)
[2024-04-21 16:44] LABS: Alanine Aminotransferase 9 U/L (0-31); Albumin Level 4.3 g/dL (3.5-5.0); Alkaline Phosphatase 35 U/L (39-117); Anion Gap 9 (12-20); Aspartate Amino Transferase 16 U/L (5-31); Bilirubin Direct 0.1 mg/dL (0.0-0.5); Bilirubin Total 0.4 mg/dL (0.0-1.0); Blood Urea Nitrogen 12 mg/dL (9-16); Calcium 9.3 mg/dL (8.4-10.2); Carbon Dioxide 28 mmol/L (22-29); Chloride 103 mmol/L (96-108); Creatinine Clr Calc Pharmacy 77.3; Estimated Glomerular Filt Rate > 60; Glucose Random 89 mg/dL (60-115); Lipase 23 U/L (8-78); Potassium 3.7 mmol/L (3.3-5.1); Sodium 136 mmol/L (135-145); Total Protein 7.8 g/dL (6.5-8.0)
[2024-04-21 16:52] LABS: Troponin-I High Sensitivity < 2.7 ng/L (<3.5-17.0)
[2024-04-21 17:05] LABS: Influenza A PCR NEGATIVE (Negative); Influenza B PCR NEGATIVE (Negative); Resp Syncy Virus RNA Qual PCR NEGATIVE (Negative); SARS COV2 PCR INHOUSE NEGATIVE (Negative)
[2024-04-21 20:39] VITALS: BP 114/72; PULSE 64; RESP 16; TEMP 36.6; O2SAT 100
[2024-04-21] MEDS: Ondansetron ODT 4 MG TAB.RAPDIS TRANSLINGU (21:18)
[2024-04-21] MEDS: Magnesium Hydrox/Alum Hydrox 30 ML ORAL.SUSP PO (21:19)
[2024-04-21] MEDS: Famotidine 20 MG TABLET PO (21:19)
[2024-04-21] MEDS: Lidocaine HCl Viscous 2 % 15 ML SOLUTION MUCOUS MEM (21:19)
[2024-04-21] MEDS: Acetaminophen 325 MG TABLET 650 MG PO (21:21)
[2024-04-21 21:39] VITALS: BP 114/72; PULSE 64; RESP 16; TEMP 36.6; O2SAT 100
== END 2024-04-21 21:40 | disposition home or self-care (01) ==
PROVIDERS: Physician Assistant Medical; Emergency Provider Emergency Medicine
DX: K27.9 Peptic ulcer, site unspecified, unspecified as acute or chronic, without hemorrhage or perforation (principal)
CPT/HCPCS: 0241U; 36415; 74018; 76705; 80048; 80076; 83690; 83735; 84484; 85025; 93005; 99284

== ENCOUNTER → 2024-04-21 15:30 | Outpatient (BNV) | payer OTHER, SELFPAY | PROVIDERS: Emergency Provider Emergency Medicine; Visit Provider Internal Medicine | DX: R10.13 Epigastric pain (principal) | CPT/HCPCS: 93010 ==

== ENCOUNTER 2024-10-29 23:47 | Emergency (ER) | payer OTHER, SELFPAY ==
[2024-10-29 23:52] VITALS: BP 104/72; PULSE 81; RESP 14; TEMP 36.4; O2SAT 99; BMI 28.5
[2024-10-30 00:16] LABS: Basophils Absolute Auto 0.1 X10*3/uL (0.0-0.2); Basophils Percent Auto 0.7 % (0-2); Eosinophils Absolute Auto 0.1 X10*3/uL (0.0-0.4); Eosinophils Percent Auto 1.9 % (0-4); Hematocrit 34.7 % (37.0-47.0); Imm Gran Abs Auto 0.03 X10*3/uL (0.00-0.03); Imm Gran Pct Auto 0.4 % (0.0-0.4); Lymphocytes Absolute Auto 2.6 X10*3/uL (1.2-4.9); Lymphocytes Percent Auto 36.2 % (20-40); MANUAL DIFF FLAG NO; Mean Corpuscular HGB Conc 31.7 g/dl (31.0-35.0); Mean Corpuscular Hemoglobin 24.1 pg (27.0-33.0); Mean Corpuscular Volume 76.1 fL (80.0-98.0); Mean Platelet Volume 9.1 fL (9.4-12.3); Monocytes Absolute Auto 0.6 X10*3/uL (0.1-1.2); Monocytes Percent Auto 8.8 % (2-11); Neutrophils Absolute Auto 3.7 x10*3/uL (2.0-8.3); Platelet Count 323 X10*3/uL (160-400); Red Blood Count 4.56 X10*6/uL (4.20-5.50); Red Cell Distribution Width 14.7 % (11.0-16.0); White Blood Count 7.2 X10*3/uL (4.8-10.8)
[2024-10-30 00:31] VITALS: BP 108/61; PULSE 80; RESP 18; TEMP 36.6; O2SAT 97
[2024-10-30 00:32] LABS: Alanine Aminotransferase 10 U/L (0-31); Albumin Level 4.2 g/dL (3.5-5.0); Alkaline Phosphatase 54 U/L (39-117); Anion Gap 13 (12-20); Aspartate Amino Transferase 21 U/L (5-31); Bilirubin Total 0.2 mg/dL (0.0-1.0); Blood Urea Nitrogen 18 mg/dL (9-16); Calcium 9.3 mg/dL (8.4-10.2); Carbon Dioxide 27 mmol/L (22-29); Chloride 108 mmol/L (96-108); Creatinine Clr Calc Pharmacy 100.1; Estimated Glomerular Filt Rate > 60; Glucose Random 82 mg/dL (60-115); Potassium 3.7 mmol/L (3.3-5.1); Sodium 144 mmol/L (135-145); Total Protein 7.7 g/dL (6.5-8.0)
[2024-10-30 00:56] LABS: Appearance Urine Cloudy; Color Urine Yellow; Glucose Urine UA Negative (Negative); Leukocyte Esterase Urine Trace (Negative); Nitrite Urine Negative (Negative); Specific Gravity - Urine >= 1.030 (1.005-1.025); UMIC TRIGGER UACC YES; Urine Blood Negative (Negative); Urine Ketones Trace mg/dL (Negative); Urine Protein Trace mg/dL (Neg-Trace)
--- NOTE | 2024-10-30 01:01 | ED_ITS ---
HPI - Back Pain/Injury General Chief Complaint: Back Pain/Injury Stated Complaint: lower back pain Time Seen by Provider: 10/30/24 00:52 Source: patient and family Mode of arrival: ambulatory Limitations: no limitations History of Present Illness ED Provider: Dr. Micaela Alcocer HPI Narrative: Patient comes to the emergency room complaining of lumbar back pain radiating towards the left leg. Patient denies any urinary retention. Patient states that if she moves a certain way it hurts more. Patient denies any recent falls, no injuries. Patient denies any URI symptoms. Related Data Home Medications ?Medication ?Instructions ?Recorded ?Confirmed duloxetine 30 mg capsule,delayed 30 mg PO DAILY 08/23/23 08/23/23 release Previous Rx's ?Medication ?Instructions ?Recorded propranolol 10 mg tablet 10 mg PO TID PRN anxiety #21 tabs 05/22/23 trazodone 50 mg tablet 50 mg PO BEDTIME MRX1 #60 tabs 05/22/23 aripiprazole 5 mg tablet (Abilify) 5 mg PO DAILY 30 days #30 tabs 08/31/23 sertraline 25 mg tablet 75 mg (3 x 25 mg) PO DAILY 30 days 08/31/23 #90 tabs trazodone 100 mg tablet 100 mg PO BEDTIME 30 days #30 tabs 08/31/23 omeprazole 20 mg capsule,delayed 20 mg PO DAILY #90 caps 04/21/24 release ondansetron HCl 4 mg tablet 4 mg PO Q6H PRN nausea and 04/21/24 vomiting #14 tabs cyclobenzaprine 10 mg tablet 10 mg PO TID PRN muscle spasm #10 10/30/24 tabs ketorolac 10 mg tablet 10 mg PO TID PRN pain #12 tabs 10/30/24 Allergies Allergy/AdvReac Type Severity Reaction Status Date / Time lamotrigine [From Lamictal] AdvReac Anaphylaxis Verified 10/29/24 23:55 Review of Systems 2 Review of Systems: Constitutional : No Weight loss, No Fever, No Chills, No Night Sweats, No Fatigue, No Malaise ENT/Mouth : No Hearing loss, No Ear Pain, No Nasal Congestion, No Sinus Pain, No Hoarseness, No sore throat, No Rhinorrhea, No Swallowing Difficulty Eyes: No Eye Pain, No Swelling, No Redness, No Foreign Body, No Discharge, No Vision Changes Cardiovascular : No Chest Pain, No SOB, No Dyspnea on Exertion, No Orthopnea, No Edema, No Palpitations Respiratory : No Cough, No Sputum, No Wheezing, No Smoke Exposure, No Dyspnea Gastrointestinal : No Nausea, No Vomiting, No Diarrhea, No Constipation, No abdominal Pain, No Hematochezia, No Melena Genitourinary : no irregular bleeding, No Dysuria, No Urinary Frequency, No Hematuria, No Urinary Incontinence, No Urgency, No Flank Pain, No Urinary Flow Changes, No Hesitancy Musculoskeletal : Complaining of back pain radiating from the lumbar area to the left lower extremity. No joint pain, No Myalgias, No Joint Swelling Skin : No Skin Lesions, No rash Neuro : No Weakness, No Numbness, No Paresthesias, No Loss of Consciousness, No Dizziness, No Headache Psych : No Anxiety/Panic, No Depression, No SI/HI/AH/VH, No Social Issues, Heme/Lymph: No Bruising, No Bleeding,No Lymphadenopathy Endocrine : No Polyuria, No Polydipsia, No Temperature Intolerance [facility] Past Medical History Medical History (Updated 10/30/24 @ 01:04 by Micaela Alcocer MD) Chronic post-traumatic stress disorder (PTSD) Depression Social History Social History Household Members: Spouse and Children Housing: Homeless Do you presently have visiting nurse or other home services: No Patient Tobacco Use Status: Never used Tobacco e-Cigarette/Vaping Use: Never Used Advance Directives: No Advance Directives Information Provided: No Do you have a plan to hurt others: No Plan service: No Sexual orientation: Straight/Heterosexual Physical Exam 2 Vital Signs: Vital Signs: Last Vital Signs Temp 97.9 F 10/30/24 00:31 Pulse 80 10/30/24 00:31 Resp 18 10/30/24 00:31 BP 108/61 10/30/24 00:31 Pulse Ox 97 10/30/24 00:31 O2 Del Method Room Air 10/30/24 00:31 BMI result Body Mass Index 28.5 Const: Other: Appearance: Alert. Oriented X3. No acute distress. Eyes: Pupils equal, round and reactive to light. ENT: Pharynx normal. Neck: Normal inspection. Neck supple. No lymph nodes noted. No crepitus CVS: Normal heart rate and rhythm. Pulses normal. Normal S1 and S2 Respiratory: No respiratory distress. Breath sounds normal. No Wheezing. No rales Abdomen: Soft and nontender. No rigidity. No distention. Back: No pain to palpation over the cervical/thoracic/lumbar pain. Positive straight leg raise test on the left side Skin: Skin warm and dry. Normal skin color. Normal skin turgor. Extremities: No lower extremity edema. No Lacerations. No Rash Neuro: Oriented X 3. No motor deficit. No sensory deficit. Moving all extremities. No slurred speech. CN 2 through 12 grossly intact Psych: calm, cooperative, normal affect Medications Administered Discontinued Medications Generic Name Dose Route Start Last Admin Trade Name Freq PRN Reason Stop Dose Admin Cyclobenzaprine HCl 10 mg 10/30/24 01:00 10/30/24 01:15 Cyclobenzaprine Hcl 10 Mg Tablet PO 10/30/24 01:01 10 mg ONCE ONE Administration Dexamethasone Sodium Phosphate 4 mg 10/30/24 01:00 10/30/24 01:16 Dexamethasone Sod Phosphate 4 Mg/Ml Vial IM 10/30/24 01:01 4 mg ONCE ONE Administration Ketorolac Tromethamine 60 mg 10/30/24 01:00 10/30/24 01:15 Ketorolac Tromethamine 60 Mg/2 Ml Vial IM 10/30/24 01:01 60 mg ONCE ONE Administration Medical Decision Making Medical Decision Making [facility] Narrative: My interpretation of labs: Patient's hematology is at baseline, no significant abnormality. Slightly anemic with a hemoglobin of 11.0. Chemistry does not show any significant abnormality. test negative. Urine negative for UTI I discussed the physical exam with the patient, she likely has sciatica versus a disc herniation in the lumbar area. With lumbar radiculopathy. Patient was given IM ketorolac and Decadron and p.o. cyclobenzaprine. Lab Data 10/30/24 00:11 10/30/24 00:11 Labs: Lab Results 10/30/24 10/30/24 Range/Units 00:11 00:49 WBC 7.2 (4.8-10.8) X10*3/uL RBC 4.56 (4.20-5.50) X10*6/uL Hgb 11.0 L (12.0-16.0) g/dl Hct 34.7 L (37.0-47.0) % MCV 76.1 L (80.0-98.0) fL MCH 24.1 L (27.0-33.0) pg MCHC 31.7 (31.0-35.0) g/dl RDW 14.7 (11.0-16.0) % Plt Count 323 (160-400) X10*3/uL MPV 9.1 L (9.4-12.3) fL Immature Gran % (Auto) 0.4 (0.0-0.4) % Neut % (Auto) 52.0 (45-73) % Lymph % (Auto) 36.2 (20-40) % [place] % (Auto) 8.8 (2-11) % Eos % (Auto) 1.9 (0-4) % Baso % (Auto) 0.7 (0-2) % Lymph # (Auto) 2.6 (1.2-4.9) X10*3/uL [place] # (Auto) 0.6 (0.1-1.2) X10*3/uL Eos # (Auto) 0.1 (0.0-0.4) X10*3/uL Baso # (Auto) 0.1 (0.0-0.2) X10*3/uL Abs Immat Gran (auto) 0.03 (0.00-0.03) X10*3/uL Absolute Neuts (auto) 3.7 (2.0-8.3) x10*3/uL Absolute Nucleated RBC 0.000 (0.0-0.012) X10*3/uL Nucleated RBC % (auto) 0.0 (0.0-0.2) /100WBC Sodium 144 (135-145) mmol/L Potassium 3.7 (3.3-5.1) mmol/L Chloride 108 (96-108) mmol/L Carbon Dioxide 27 (22-29) mmol/L Anion Gap 13 (12-20) BUN 18 H (9-16) mg/dL Creatinine 0.72 (0.5-1.4) mg/dL Estim Creat Clear Calc 100.1 Estimated GFR > 60 Random Glucose 82 (60-115) mg/dL Calcium 9.3 (8.4-10.2) mg/dL Total Bilirubin 0.2 (0.0-1.0) mg/dL AST 21 (5-31) U/L ALT 10 (0-31) U/L Alkaline Phosphatase 54 (39-117) U/L Total Protein 7.7 (6.5-8.0) g/dL Albumin 4.2 (3.5-5.0) g/dL Urine Color Yellow Urine Appearance Cloudy Urine pH 6.0 (5.0-9.0) Ur Specific [place] >= 1.030 H (1.005-1.025) Urine Protein Trace (Neg-Trace) mg/dL Urine Glucose (UA) Negative (Negative) mg/dL Urine Ketones Trace (Negative) mg/dL Urine Blood Negative (Negative) Urine Nitrite Negative (Negative) Ur Leukocyte Esterase Trace H (Negative) Urine RBC 0-2 (0-2) /HPF Urine WBC 0-5 (0-5) /HPF Ur Squamous Epith Cells 0-2 (0-2) /HPF Urine Bacteria None Seen (None Seen) Hyaline Casts 0-2 (0-2) /LPF Urine Test NEGATIVE (NEGATIVE) Discharge Plan Discharge Clinical Impression: Sciatica Patient Disposition: Home, Self-Care Instructions: Sciatica (ED) Additional Instructions: Please follow-up with your primary care physician tomorrow. If you have any worsening or new symptoms, please return to the emergency room or call 911 Prescriptions: New ketorolac 10 mg tablet 10 mg PO TID PRN (Reason: pain) Qty: 12 0RF Rx Instructions: Do not mix this medication with NSAIDs cyclobenzaprine 10 mg tablet 10 mg PO TID PRN (Reason: muscle spasm) Qty: 10 0RF No Action trazodone 50 mg Tablet 50 mg PO BEDTIME MRX1 Qty: 60 0RF propranolol 10 mg Tablet 10 mg PO TID PRN (Reason: anxiety) Qty: 21 1RF Protocol: Hold for SBP/HR < HOLD for SBP < : 90 HOLD for HR < : 60 duloxetine 30 mg capsule,delayed release(DR/EC) 30 mg PO DAILY trazodone 100 mg Tablet 100 mg PO BEDTIME 30 Days Qty: 30 0RF sertraline 25 mg Tablet 75 mg PO DAILY 30 Days Qty: 90 0RF aripiprazole [Abilify] 5 mg Tablet 5 mg PO DAILY 30 Days Qty: 30 0RF omeprazole 20 mg capsule,delayed release(DR/EC) 20 mg PO DAILY Qty: 90 0RF ondansetron HCl 4 mg tablet 4 mg PO Q6H PRN (Reason: nausea and vomiting) Qty: 14 0RF Print Language: Tunisian
[2024-10-30 01:13] LABS: Bacteria Urine None Seen (None Seen); Hyaline Casts Urine 0-2 /LPF (0-2); RBC Urine 0-2 /HPF (0-2); Squamous Epithelial Cell Urine 0-2 /HPF (0-2); WBC Urine 0-5 /HPF (0-5)
[2024-10-30] MEDS: Cyclobenzaprine HCl 10 MG TABLET PO (01:15)
[2024-10-30] MEDS: Ketorolac Tromethamine 60 MG/2 ML VIAL IM (01:15)
[2024-10-30] MEDS: dexAMETHasone sod phosphate 4 MG/ML VIAL IM (01:16)
[2024-10-30 01:19] LABS: UPreg QC Valid YES; Urine Pregnancy NEGATIVE (NEGATIVE)
[2024-10-30 01:54] VITALS: BP 103/69; PULSE 83; RESP 16; TEMP 36.1; O2SAT 98
[2024-10-30 01:56] VITALS: BP 103/69; PULSE 83; RESP 16; TEMP 36.1; O2SAT 98
== END 2024-10-30 02:00 | disposition home or self-care (01) ==
PROVIDERS: Emergency Provider Emergency Medicine; PCP Internal Medicine
DX: M54.42 Lumbago with sciatica, left side (principal); M79.605 Pain in left leg; Z79.899 Other long term (current) drug therapy
CPT/HCPCS: 36415; 80053; 81001; 81025; 85025; 96372; 99284; J1100; J1885

== ENCOUNTER 2024-12-08 15:58 | Outpatient (AMB) | payer OTHER, SELFPAY ==
[2024-12-08 16:04] VITALS: BP 94/70; PULSE 84; TEMP 36.3; O2SAT 100; BMI 28.7
--- NOTE | 2024-12-08 16:04 | A.OFFPC_ITS ---
Vital Signs 12/08/24 16:04 Height 5 ft 4 in Weight 167 lb 2 oz BMI 28.7 BP 94/70 Blood Pressure Location Lt brachial Position Sitting Pulse 84 Pulse Source Pulse Oximeter Temp 97.3 F Temp Source Temporal Artery Scan Pulse Oximetry (%) 100 Oxygen Delivery Method Room Air Intake Visit Reasons: New patient Intake Note: Patient is a new patient here to establish care for ?DM. Transferring care from [facility]/[place] Medical records have been requested today. Firebreak Cutter Required: Yes Firebreak Cutter Language: Bengali Accompanied by: Self / Same As Patient Allergies lamotrigine [From Lamictal] Adverse Reaction (Verified 12/08/24 16:21) Anaphylaxis Medication List - Last Reconciled 12/08/24 by Jeri Clayton PA-C clonazepam mg PO duloxetine 60 mg PO DAILY omeprazole 20 mg PO DAILY sertraline 75 mg PO DAILY sertraline 100 mg PO DAILY trazodone 100 mg PO BEDTIME 30 days Tobacco use date assessed: 12/08/24 Dental Screening Dental Screen Date: 12/08/24 Did you have a dental visit in the last 12 months?: Yes Did you have a dental problem in the last 6 months where you did not have access to dental care?: No Was dental information given to patient?: Patient has dentist HPI New patient HPI0 Details 44-year-old female with past medical his tory of depression, PTSD coming to the office with the 1st time. In review of the notes, patient was seen in [facility] 10/30/2024 for low back pain radiating towards the left leg given ketorolac tablet and cyclobenzaprine advised to follow up with PCP. claudia [id number] drill presser was used for the duration of thi9s visit. Patient was previously being seen at [facility] in [place] and follows with psych through [facility] for management of psych medications. last time being seen by PCP was 10 months ago. She has not yet done a mammogram or colonoscopy and has seen gynecology in the past but is not up to date with pap smears. She does mention today several years ago when she was admitted to the hospital she was diagnosed with diabetes but has never been treated for this concern. [facility] Medical History Chronic post-traumatic stress disorder (PTSD) Depression Social History Household Members: Spouse and Children Housing: House Do you presently have visiting nurse or other home services: No Patient Tobacco Use Status: Never used Tobacco e-Cigarette/Vaping Use: Never Used service: No Current occupational status: disabled Current occupation: disabled for psychiatric concerns Sexual orientation: Straight/Heterosexual Cognitive needs: No Hearing needs: No Vision needs: No Female Reproductive History Menstrual control method: permanent sterilization Permanent Sterilization: BTL Total pregnancies: 2 Full term: 2 History of abnormal pap smear: No Questionnaire PHQ-9 Over the last 2 weeks, how often have you been bothered by any of the following problems? 1. Little interest or pleasure in doing things: nearly every day 2. Feeling down, depressed, or hopeless: nearly every day 3. Trouble falling or staying asleep, or sleeping too much: nearly every day 4. Feeling tired or having little energy: nearly every day 5. Poor appetite or overeating: nearly every day 6. Feeling bad about yourself - or that you are a failure or have let yourself or your family down: nearly every day 7. Trouble concentrating on things, such as reading the newspaper or watching television: nearly every day 8. Moving or speaking so slowly that other people could have noticed. Or the opposite - being so fidgety or restless that you have been moving around a lot more than usual: nearly every day 9. Thoughts that you would be better off or of hurting yourself in some way: several days Total score: 25 Depression Screening Interpretation: Positive (feels sxs are well managed ) Depression Screening Follow-up: Existing condition and In treatment Depression Screening Done: Yes 57379 - PHQ-9 Billing: Yes Source: Developed by Drs. Kel Everett, Laura Betts, Randell Atkinson and colleagues, with an educational polly from [employer]. Thrive Questionnaire Date Thrive assessed: 12/08/24 I am a: Patient What is your living situation today?: I have a steady place to live Within the past 12 months, did the food you bought not last and you didn't have the money to get more?: Never true Within the past 12 months, did you worry whether your food would run out before you got money to buy more?: Sometimes True Do you have trouble paying for medicines?: No Do you have trouble getting transportation to medical appointments?: No Do you have trouble paying your heating and electricity bill?: Yes Do you have trouble taking care of your child, family member or friend?: No Do you have trouble with day-to-day activities such as bathing, preparing meals, shopping, managing finances, etc.?: Yes Are you currently unemployed and looking for a job?: No Are you interested in more education?: Yes Please select the resources that you would like help with: Utilities Currently or been in a relationship where the following occur: No concerns reported THRIVE Score: 2 AUDIT C Alcohol Use Questionnaire (AUDIT-C) 1. How often do you have a drink containing alcohol?: Monthly or less 2. How many drinks containing alcohol do you have on a typical day when you are drinking?: 3 or 4 3. How often do you have six or more drinks on one occasion?: Less than monthly Total Score: 3 CESARIO-7 AMB Questionnaire CESARIO-7 Date CESARIO - 7 assessed: 12/08/24 Feeling nervous, anxious, or on edge: 1 = Several days Not being able to stop or control worryin = Not at all Worrying too much about different things: 1 = Several days Trouble relaxin = Several days Being so restless that it is hard to sit still: 1 = Several days Becoming easily annoyed or irritable: 1 = Several days Feeling afraid as if something awful might happen: 1 = Several days Total CESARIO-7 score (0-4 normal; 5-9 mild; 10-14 moderate; 15-21 severe): 6 Source: Developed by Drs. Kel Everett, Laura Betts, Randell Atkinson and colleagues, with an educational polly from [employer]. CESARIO-7 Assessment Billing CESARIO-7 Assessment Tool: CESARIO-7 Assessment 35828 Review of Systems Const Denies body aches, Denies fatigue, Denies fever(s), Denies frequent falls, Denies weakness and Reports weight gain Eyes Reports no additional complaints and Denies change in vision ENT Denies dysphagia, Denies dizziness and Denies odynophagia Card Denies chest pain, Denies syncope, Denies lightheadedness and Denies dyspnea Resp Denies cough and Denies dyspnea GI Denies abdominal pain, Reports constipation, Denies dysphagia, Denies dyspepsia, Denies diarrhea, Denies nausea, Denies odynophagia and Denies vomiting Reports no additional complaints Musc Denies back pain and Denies myalgias Skin/Breast Reports system reviewed and no additional complaints, except as documented Neuro Denies dizziness, Denies syncope, Denies frequent falls and Denies weakness Psych Reports no additional complaints Endo Denies fatigue Physical exam (Primary Care) Vital Signs: Last Vital Signs Temp 97.3 F 12/08/24 16:04 Pulse 84 12/08/24 16:04 BP 94/70 12/08/24 16:04 Pulse Ox 100 12/08/24 16:04 Oxygen Delivery Method Room Air 12/08/24 16:04 BMI result Body Mass Index 28.7 Tobacco/Smoking Status: Tobacco use Status Tobacco use date assessed 12/08/24 12/08/24 16:13 Patient Tobacco Use Status Never used Tobacco 12/08/24 16:06 e-Cigarette/Vaping Use Never Used 12/08/24 16:06 PHQ-9: PHQ-9 Score PHQ-9: Total score 12/08/24 16:27 Depression Screening Interpretation: Positive (feels sxs are well managed ) Depression Screening Follow-up: Existing condition and In treatment Thrive Assessment: Date of Thrive Assessment Date Thrive assessed 12/08/24 12/08/24 16:13 Currently or been in a relationship where the following occur: No concerns repo rted Const General: cooperative, healthy appearing, comfortable and no acute distress Orientation/consciousness: patient oriented x3 HENMT Head: Yes normocephalic Ears: hearing grossly normal bilaterally General nose exam: Normal external nose present Eyes General: appearance normal, both eyes and all related structures Conjunctivae: conjunctivae normal Neck Neck: Yes full ROM and Yes no lymphadenopathy Resp Effort & Inspection: normal respiratory effort Auscultation: clear to auscultation bilaterally, no crackles, no rales, no rhonchi and no wheezes Cardio Rate: regular rate Rhythm: regular rhythm Skin General skin exam: no rashes or lesions noted Neuro General: patient oriented x3 Gait exam (Neuro): Normal gait present Extrem General: Yes normal to inspection, Yes full ROM and No edema Psych Affect: normal affect Attitude: cooperative Insight: Good insight present (Psych) Judgement: Good judgement present (Psych) Coding Level of Care Code New Pt Level 4 (88312) Diagnoses Major depressive disorder, recurrent episode F33.9 Major depression episode severity: severe Chronic post-traumatic stress disorder (PTSD) F43.12 Screening for cervical cancer Z12.4 Screening for hyperlipidemia Z13.220 Screening for diabetes mellitus Z13.1 Overweight (BMI 25.0-29.9) E66.3 Constipation, unspecified constipation type K59.00 Constipation type: unspecified constipation type Additional Codes CESARIO-7 Assessment Billing - CESARIO-7 Assessment Tool: CESARIO-7 Assessment [id number] ([id number]) PHQ-9 - 58723 - PHQ-9 Billing: Yes ([id number]) Assessment & Plan Assessment & Plan (1) Major depressive disorder, recurrent episode: Comment: Mamadou Cavazos for julius Code(s): F33.9 - Major depressive disorder, recurrent, unspecified Category: Medical Qualifiers: Major depression episode severity: severe Plan: Patient has a psychiatrist she follows with for management of depresssion. Currently on trazodone 100 mg, sertraline 175 mg, duloxetine 60 mg and clonazepam as needed (2) Chronic post-traumatic stress disorder (PTSD): Code(s): F43.12 - Post-traumatic stress disorder, chronic Category: Medical Plan: Follows with psych for management of PTSD. Currently on trazodone 100 mg, sertraline 175 mg, duloxetine 60 mg and clonazepam as needed (3) Screening for cervical cancer: Code(s): Z12.4 - Encounter for screening for malignant neoplasm of cervix Category: Medical Plan: Referral placed to gynecology for annual Pap smears (4) Screening for hyperlipidemia: Code(s): Z13.220 - Encounter for screening for lipoid disorders Category: Medical Plan: Ordered for cholesterol labs to screen for hypercholesterolemia (5) Screening for diabetes mellitus: Code(s): Z13.1 - Encounter for screening for diabetes mellitus Category: Medical Plan: Patient states she has a previous diagnosis of diabetes mellitus but has never treated for this concern. Ordered for A1c along with additional blood work. (6) Overweight (BMI 25.0-29.9): Code(s): E66.3 - Overweight Category: Medical Plan: Healthy diet and regular exercise is encouraged. Referred to weight management clinic at patient request (7) Constipation: Code(s): K59.00 - Constipation, unspecified Category: Medical Qualifiers: Constipation type: unspecified constipation type Qualified Code(s): K59.00 - Constipation, unspecified Plan: Patient complaining of constipation advised patient to increase exercise, drink plenty of water and increased fiber in the diet. Plan This note was constructed using voice recognition software. While every effort has been made to ensure accuracy and pharmacometrician, still areas may have been included sometimes these areas may affect the content or meeting of the given symptoms. Total time spent caring for the patient today was 30 minutes. This includes time spent before the visit reviewing the chart, time spent during the visit, and time spent after the visit and documentation. Orders: Orders Vitamin B12 and Folate 12/08/24 Jeri Clayton PA-C Z00.00 - Encounter for general adult medical examination without abnormal findings Vitamin D 25-OH Total 12/08/24 Jeri Clayton PA-C Z00.00 - Encounter for general adult medical examination without abnormal findings Hemoglobin A1c 12/08/24 Jeri Clayton PA-C Z13.1 - Encounter for screening for diabetes mellitus Comprehensive Met. Panel 12/08/24 Jeri Clayton PA-C Z00.00 - Encounter for general adult medical examination without abnormal findings Complete Blood Count Auto Diff 12/08/24 Jeri Clayton PA-C Z00.00 - Encounter for general adult medical examination without abnormal findings Lipid Panel 12/08/24 Jeri Clayton PA-C Z13.220 - Encounter for screening for lipoid disorders TSH reflex Free T4 12/08/24 Jeri Clayton PA-C Z00.00 - Encounter for general adult medical examination without abnormal findings CT NG by PCR 12/08/24 Jeri Clayton PA-C Z00.00 - Encounter for general adult medical examination without abnormal findings MM tomosynthesis screening BI 12/08/24 Jeri Clayton PA-C Z12.31 - Encounter for screening mammogram for malignant neoplasm of breast Referrals SUPPLY [employer]ANNER Referral Jeri Clayton PA-C Z12.4 - Encounter for screening for malignant neoplasm of cervix Medical Weight Management Referral Jeri Hurteau, PA-C E66.3 - Overweight Medications: Changed From sertraline 75 mg (3 x 25 mg) PO DAILY 30 days 90 tabs 0RF To sertraline 75 mg PO DAILY Emory Atwood MD Discontinued propranolol Discontinued Reason: Patient no longer taking 10 mg See Protocol PO TID PRN 21 tabs 1RF anxiety trazodone Discontinued Reason: Patient no longer taking 50 mg PO BEDTIME MRX1 60 tabs 0RF aripiprazole (Abilify) Discontinued Reason: Patient no longer taking 5 mg PO DAILY 30 days 30 tabs 0RF sertraline Discontinued Reason: Patient no longer taking 75 mg (3 x 25 mg) PO DAILY 30 days 90 tabs 0RF ondansetron HCl Discontinued Reason: Patient no longer taking 4 mg PO Q6H PRN 14 tabs 0RF nausea and vomiting ketorolac Do not mix this medication with NSAIDs Discontinued Reason: Patient no longer taking 10 mg PO TID PRN 12 tabs 0RF pain cyclobenzaprine Discontinued Reason: Patient no longer taking 10 mg PO TID PRN 10 tabs 0RF muscle spasm
== END 2024-12-08 16:41 | disposition home or self-care (01) ==
DX: F33.9 Major depressive disorder, recurrent, unspecified (principal); F43.12 Post-traumatic stress disorder, chronic; Z12.4 Encounter for screening for malignant neoplasm of cervix; Z13.220 Encounter for screening for lipoid disorders; Z13.1 Encounter for screening for diabetes mellitus; E66.3 Overweight; K59.00 Constipation, unspecified

== ENCOUNTER → 2024-12-08 15:58 | Outpatient (BNVA) | payer OTHER, SELFPAY | DX: F33.9 Major depressive disorder, recurrent, unspecified (principal); F43.12 Post-traumatic stress disorder, chronic; E66.3 Overweight; K59.00 Constipation, unspecified | CPT/HCPCS: 96127; 99202 ==

== ENCOUNTER 2024-12-13 13:32 | Outpatient (REF) | payer OTHER, SELFPAY ==
[2024-12-13 13:45] LABS: MANUAL DIFF FLAG NO
--- OUTSIDE RECORDS SUMMARY | 2024-12-13 13:46 | XMS_ITS | Encounter Summary ---
Author Organization [facility] Address [address] [place] [address] Care Team Providers Care Glass Designer Name Role Phone Coral Montenegro DO Primary Care Pro vider Unavailable Mahendra Redmond MD Primary Care Provider [phone] David Solis MD Primary Care Provider Encounter Details Date Type Department Care Team Description 12/22/2019 Transfer Records Medical Records [address] [place] [address] Social History Tobacco Use Types Packs/Day Years Used Date Smoking Tobacco: Never Smokeless Tobacco: Never Alcohol Use Standard Drinks/Week Comments Not Asked 0 (1 standard drink = 0.6 oz pur e alcohol) Sex Assigned at Date Recorded Not on file Job Start Date Occupation Industry Not on file Not on file Not on file documented as of this encounter Plan of Treatment Not on file documented as of this encounter Visit Diagnoses Not on filedocumented in this encounter Care Teams Glass Designer Relationship Specialty Start Date End Date Coral Montenegro DO PCP - General Internal Medicine 12/12/19 05/22/21 Mahendra Redmond MD [address] [place] [id number] PCP - General Internal Medicine 05/23/21 05/21/23 David Solis MD [address] [place] [address] PCP - General Internal Medicine 05/22/23 documented as of this encounter
--- OUTSIDE RECORDS SUMMARY | 2024-12-13 13:46 | XMS_ITS | Encounter Summary ---
Author Organization [facility] Address [address] [place] [address] Care Team Providers Care Occasional Caregiver Name Role Phone Coral Montenegro DO Primary Care Pro vider Unavailable Mahendra Redmond MD Primary Care Provider [phone] David Solis MD Primary Care Provider Encounter Details Date Type Department Care Team Description 01/19/2020 Hematologist Oncologist Report Medical Records [address] [place] [address] Rehab., Nicolás Social History Tobacco Use Types Packs/Day Years [...] on filedocumented in this encounter Care Teams Occasional Caregiver Relationship Specialty Start Date End Date Coral Montenegro DO PCP - General Internal Medicine 12/12/19 05/22/21 Mahendra Redmond MD [address] [place] [address] [id number] PCP - General Internal Medicine 05/23/21 05/21/23 David Solis MD [address] [place] [address] PCP - General Internal Medicine 05/22/23 documented as of this encounter
--- OUTSIDE RECORDS SUMMARY | 2024-12-13 13:46 | XMS_ITS | Encounter Summary ---
Author Organization [facility] Address [address] [place] [address] Care Team Providers Care Open Hearth Helper Name Role Phone Coral Montenegro DO Primary Care Pro vider Unavailable Mahendra Redmond MD Primary Care Provider [phone] David Solis MD Primary Care Provider Encounter Details Date Type Department Care Team Description 01/17/2020 Animal Sticker Report Medical Records [address] [place] [address] Armaan Sandoval PA-C Social History Tobacco Use Types Packs/Day Years [...] on filedocumented in this encounter Care Teams Open Hearth Helper Relationship Specialty Start Date End Date Coral Montenegro DO PCP - General Internal Medicine 12/12/19 05/22/21 Mahendra Redmond MD [address] [place] [address] PCP - General Internal Medicine 05/23/21 05/21/23 David Solis MD [address] [place] [address] PCP - General Internal Medicine 05/22/23 documented as of this encounter
--- OUTSIDE RECORDS SUMMARY | 2024-12-13 13:47 | XMS_ITS | Encounter Summary ---
Author Organization [facility] Address [address] [place] [address] Care Team Providers Care Single Spindle Screw Machine Operator Name Role Phone Sky Carranza MD Primary Care Provider Un available Coral Montenegro DO Primary Care Pro vider Unavailable Mahendra Redmond MD Primary Care Provider [phone] David Solis MD Primary Care Provider Reason for Visit * Reason Onset Date Comments Appointment-Internal Referral 02/25/2017 DE RM Encounter Details Date Type Department Care Team Description 02/25/2017 Telephone Dermatology - [place] [address] [place] [id number] Sugar Hughse PA-C [address] [place] [address] Appointment-Internal Referral (DERM) Social History Tobacco Use Types Packs/Day Years Used Date Smoking Tobacco: Never Alcohol Use Standard Drinks/Week Comments Not Asked 0 (1 standard drink = 0.6 oz pur e alcohol) Sex Assigned at Date Recorded Not on file Job Start Date Occupation Industry Not on file Not on file Not on file documented as of this encounter Miscellaneous Notes * Telephone Encounter - Sugar Hughes PA-C - 02/25/2017 12:02 PM EDT Noted. * Telephone Encounter - Julia Lovett - 02/25/2017 9:03 AM EDT I have been unable to reach this patient by phone. A letter is being sent. documented in this encounter Plan of Treatment Not on file documented as of this encounter Visit Diagnoses Not on filedocumented in this encounter Care Teams Single Spindle Screw Machine Operator Relationship Specialty Start Date End Date Sky Carranza MD PCP - General Internal Medicine 02/17/172 0 Coral Montenegro DO PCP - General Internal Medicine 12/12/19 05/22/21 Mahendra Redmond MD [address] [place] [address] PCP - General Internal Medicine 05/23/21 05/21/23 David Solis MD [address] [place] [address] PCP - General Internal Medicine 05/22/23 documented as of this encounter
--- OUTSIDE RECORDS SUMMARY | 2024-12-13 13:47 | XMS_ITS | Clinical Summary ---
Author Organization [facility] ity Address [address] [place] [address] Care Team Providers Care Vice President Of Product Marketing Name Role Phone David Solis MD Primary Care Provider Allergies No known active allergies Medications Medication Sig Dispensed Refills Start Date End Date Status ARIPiprazole (ABILIFY) 5 mg tablet TOME ANTHONY TABLETA TODOS LOS D 03/29/2024 Active clonazePAM (KlonoPIN) 0.5 mg tablet TAKE 1 TABLET BY MOUTH TWICE A DAY NEEDED FOR ANXIETY 03/29/2024 Active DULoxetine (CYMBALTA) [address] capsule TOME ANTHONY C PSULA DOS LOS D 03/29/2024 Active melatonin 10 mg capsule Take 1 Tablet by mouth at bedtime as needed (insomnia). 05/29/2023 Active ondansetron (ZOFRAN) 4 mg tablet Take 1 Tablet by mouth every 12 hours as needed for Nausea. 04/27/2024 Active sertraline (ZOLOFT) 100 mg tablet TOME ANTHONY TABLETA TODOS LOS D 03/29/2024 Active traZODone (DESYREL) 100 mg tablet TOME ANTHONY TABLETA TODOS LOS D AT NIGHTTIME 03/29/2024 Active Active Problems Problem Noted Date Diagnosed Date Panic disorder 05/29/2023 Alpha thalassemia trait 12/16/2021 Overview (10/28/2024): Possible Anxiety 02/24/2017 Depression 02/17/2017 Immunizations Name Administration Dates Next Due PPD Test 02/17/2017 Tdap Tetanus diptheria acell ular pertussis (Boostrix; Adacel) 7yo and older 02/17/2017 Medical History Medical History Date Comments Depression 02/17/2017 DX:Depression Anxiety 02/24/2017 DX:Anxiety Social History Tobacco Use Types Packs/Day Years Used Date Smoking Tobacco: Never Smokeless Tobacco: Never Alcohol Use Standard Drinks/Week Comments Not Asked 0 (1 standard drink = 0.6 oz pur e alcohol) Sex and Gender Information Value Date Recorded Sex Assigned at Not on file Gender Identity Not on file Sexual Orientation Not on file Obstetrics History Last Filed Vital Signs Vital Sign Reading Time Taken Comments Blood Pressure 111/78 04/27/2024 12:22 PM EDT Pulse 97 04/27/2024 12:22 PM EDT Temperature - - Respiratory Rate - - Oxygen Saturation - - Inhaled Oxygen Concentration - - Weight 71.2 kg (157 lb) 04/27/2024 12:22 PM EDT Height 162.6 cm (5' 4 ) 05/29/2023 10:35 AM EDT Body Mass Index 26.95 05/29/2023 10:35 AM EDT Plan of Treatment Health Maintenance Due Date Last Done Comments Breast Cancer Screening 1981 Pneumococcal Vaccine: Pediatrics (0 to 5 Years) and At-Risk Patients (6 to 64 Years) (1 of 2 - PCV) 1987 Hepatitis B Vaccines (1 of 3 - 19+ 3-dose series) 2000 Cervical Cancer Screening: P ap Smear 2002 Hepatitis C Screening 10/08/2022 Social Influencers of Health Screening 10/08/2022 COVID-19 Vaccine (3 - 2023-2 5 season) 2024 07/12/2021, 06/19/2021 Influenza Vaccine (#1) 2024 Depression Screening 04/27/2025 04/27/2024 Cholesterol Screening (Lipid Panel) 12/12/2026 12/12/2021 DTaP,Tdap,and Td Vaccines (2 - Td or Tdap) 02/17/2027 02/17/2017 HIV Screening Completed 12/12/2021 HIB Vaccines Aged Out No longer eligi ble based on patient's age to complete this topic HPV Vaccines Aged Out No longer eligi ble based on patient's age to complete this topic Hepatitis A Vaccines Aged Out No long er eligible based on patient's age to complete this topic IPV Vaccines Aged Out No longer eligi ble based on patient's age to complete this topic MMR Vaccines Aged Out No longer eligi ble based on patient's age to complete this topic Meningococcal ACWY Vaccine Aged Out N o longer eligible based on patient's age to complete this topic RSV Immunization Patients Under 20 months Aged Out No longer eligible b ased on patient's age to complete this topic Varicella Vaccines Aged Out No longer eligible based on patient's age to complete this topic Procedures Procedure Name Priority Date/Time Associated Diagnosis Comments DEPRESSION SCREENING Routine 04/27/2024 HIV SCREENING Routine 12/12/2021 LIPID PANEL Routine 12/12/2021 from Last 3 Months or Most Recently Relevant to Health Maintenance Results * Depression Screening (04/27/2024) [facility]ologist [facility] Depression Screening Abstracted Historical Provider [facility] * HIV Screening (12/12/2021) Pathologist [facility] HIV Screening Abstracted Historical Provider [facility] * (ABNORMAL) Lipid panel (12/12/2021) Pathologist [facility] LDL/HDL Ratio 2 0 - 4 Triglycerides 35 0 - 150 mg/dL Cholesterol 217(A) 0 - 200 mg/dL HDL 94 40 mg/dL LDL Cholesterol 116(A) 0 - 100 mg/dL Blood Venous blood specimen / Unknown Historical Provider LAB BLOOD ORDERAB LES from Last 3 Months or Most Recently Relevant to Health Maintenance Care Teams Vice President Of Product Marketing Relationship Specialty Start Date End Date David Solis MD [address] [place] [address] PCP - General 05/22/23
--- OUTSIDE RECORDS SUMMARY | 2024-12-13 13:47 | XMS_ITS | Clinical Summary ---
Author Organization [facility] Address [address] [place] [address] Care Team Providers Care Assortment Planner Name Role Phone David Solis MD Primary Care Provider Allergies No known active allergies Medications Medication Sig Dispensed Refills Start Date End Date Status Melatonin 10 MG Cap Take 1 Tablet by mouth at bedtime as needed (insomnia). 30 Capsule 0 05/29/2023 Active clonazepam (KLONOPIN) 0.5 MG tablet TAKE 1 TABLET BY MOUTH TWICE A DAY NEEDED FOR ANXIETY 0 03/29/2024 Active duloxetine (CYMBALTA) 60 MG capsule TOME ANTHONY C PSULA TODOS LOS D 0 03/29/2024 Active sertraline (ZOLOFT) 100 MG tablet TOME ANTHONY TABLETA TODOS LOS D 0 03/29/2024 Active aripiprazole (ABILIFY) 5 MG tablet TOME ANTHONY TABLETA TODOS LOS D 0 03/29/2024 Active trazodone (DESYREL) 100 MG tablet TOME ANTHONY TABLETA TODOS LOS D AT NIGHTTIME 0 03/29/2024 Active ondansetron (ZOFRAN) 4 MG tablet Take 1 Tablet by mouth every 12 hours as needed for Nausea. 30 Tablet 3 04/27/2024 Active Active Problems Problem Noted Date Panic disorder 05/29/2023 History of suicidal behavior 05/29/2023 Alpha thalassemia trait 12/16/2021 Overview: Possible Anxiety 02/24/2017 Depression 02/17/2017 Immunizations Name Administration Dates Next Due COVID-19 (Pfizer) 07/12/2021,06/19/2021 PPD-RBMG 02/17/2017 Tdap 02/17/2017 Social History Tobacco Use Types Packs/Day Years Used Date Smoking Tobacco: Never Smokeless Tobacco: Never Tobacco Cessation:Counseling Given: Not Answered Alcohol Use Standard Drinks/Week Comments Not Asked 0 (1 standard drink = 0.6 oz pur e alcohol) Sex Assigned at Date Recorded Not on file Job Start Date Occupation Industry Not on file Not on file Not on file Last Filed Vital Signs Vital Sign Reading Time Taken Comments Blood Pressure 111/78 04/27/2024 12:22 PM EDT Pulse 97 04/27/2024 12:22 PM EDT Temperature 36.1 ??C (97 ??F) 04/27/2024 12:22 PM EDT Respiratory Rate 14 04/27/2024 12:22 PM EDT Oxygen Saturation 98% 05/29/2023 10:35 AM EDT Inhaled Oxygen Concentration - - Weight 71.2 kg (157 lb) 04/27/2024 12:22 PM EDT Height 162.6 cm (5' 4 ) 05/29/2023 10:35 AM EDT Body Mass Index 26.95 05/29/2023 10:35 AM EDT Plan of Treatment Health Maintenance Due Date Last Done Comments CERVICAL CANCER SCREENING 2002 BASELINE HEALTH EXAM 40-64 2021 02/17/2017, MAMMOGRAM 2021 Covid-19 Vaccine (2022-2 4 season) 2024 07/12/2021, 06/19/2021 INFLUENZA (#1) 2024 BMI CHECK/ADVISE 11/09/2024 05/29/2023, , 10/20/2017, Additional history exists DEPRESSION SCREENING/FOLLOWUP 11/09/2024, 05/29/2023, 05/29/2023, Additional history exists SOCIAL NEEDS SCREENING 11/09/2024 CHOLESTEROL SCREENING 12/12/2026 12/12/2021 , 12/12/2021, 02/17/2017 DTAP/TDAP/TD (2 - Td or Tdap) 02/17/2027 02/17/2017 PNEUMOCOCCAL VACCINE FOR HIG H RISK PATIENTS (#1) 2046 Care Teams Assortment Planner Relationship Specialty Start Date End Date David Solis MD [address] [place] [address] PCP - General Internal Medicine 05/22/23
--- OUTSIDE RECORDS SUMMARY | 2024-12-13 13:47 | XMS_ITS | Encounter Summary ---
Author Organization [facility] Address [address] [place] [address] Care Team Providers Care Metal Moulder'S Assistant Name Role Phone Sky Carranza MD Primary Care Provider Un available Coral Montenegro DO Primary Care Pro vider Unavailable aMhendra Redmond MD Primary Care Provider [phone] David Solis MD Primary Care Provider Encounter Details Date Type Department Care Team Description 02/19/2017 Release of Information Medical Records [address] [place] [id number] Abstract, Provider Social History Tobacco Use Types Packs/Day Years [...] on filedocumented in this encounter Care Teams Metal Moulder'S Assistant Relationship Specialty Start Date End Date Sky Carranza MD PCP - General Internal Medicine 02/17/17 0 Coral Montenegro DO PCP - General Internal Medicine 12/12/19 05/22/21 Mahendra Redmond MD [address] [place] [address] [phone] PCP - General Internal Medicine 05/23/21 05/21/23 David Solis MD [address] [place] [address] [place] [address] PCP - General Internal Medicine 05/22/23 documented as of this encounter
--- OUTSIDE RECORDS SUMMARY | 2024-12-13 13:47 | XMS_ITS | Encounter Summary ---
Author Organization [facility] Address [address] [place] [address] Care Team Providers Care Accounting File Clerk Name Role Phone Coral Montenegro DO Primary Care Pro vider Unavailable Mahendra Redmond MD Primary Care Provider [phone] David Solis MD Primary Care Provider Encounter Details Date Type Department Care Team Description 03/14/2020 Assistant Manager Quality Management Report Medical Records [address] [place] [address] Armaan Sandoval PA-C Social History Tobacco Use [...] on filedocumented in this encounter Care Teams Accounting File Clerk Relationship Specialty Start Date End Date Coral Montenegro DO PCP - General Internal Medicine 12/12/19 05/22/21 Mahendra Redmond MD [address] [place] [address] PCP - General Internal Medicine 05/23/21 05/21/23 David Solis MD [address] [place] [address] PCP - General Internal Medicine 05/22/23 documented as of this encounter
[2024-12-13 13:49] LABS: Basophils Absolute Auto 0.1 X10*3/uL (0.0-0.2); Basophils Percent Auto 1.5 % (0-2); Eosinophils Absolute Auto 0.1 X10*3/uL (0.0-0.4); Eosinophils Percent Auto 2.5 % (0-4); Hematocrit 36.9 % (37.0-47.0); Hemoglobin 11.5 g/dl (12.0-16.0); Imm Gran Abs Auto 0.03 X10*3/uL (0.00-0.03); Imm Gran Pct Auto 0.6 % (0.0-0.4); Lymphocytes Absolute Auto 1.9 X10*3/uL (1.2-4.9); Lymphocytes Percent Auto 39.6 % (20-40); Mean Corpuscular HGB Conc 31.2 g/dl (31.0-35.0); Mean Corpuscular Hemoglobin 23.6 pg (27.0-33.0); Mean Corpuscular Volume 75.8 fL (80.0-98.0); Mean Platelet Volume 9.6 fL (9.4-12.3); Monocytes Absolute Auto 0.4 X10*3/uL (0.1-1.2); Monocytes Percent Auto 8.4 % (2-11); Neutrophils Absolute Auto 2.3 x10*3/uL (2.0-8.3); Neutrophils Percent Auto 47.4 % (45-73); Platelet Count 306 X10*3/uL (160-400); Red Blood Count 4.87 X10*6/uL (4.20-5.50); White Blood Count 4.8 X10*3/uL (4.8-10.8)
[2024-12-13 14:11] LABS: Estimated Average Glucose 108 mg/dL; Hemoglobin A1C 111.5842 umol/L; Hemoglobin A1c % 5.4 % (<6.0); Total Hemoglobin (HGBA1C) 3141.2891 umol/L
[2024-12-13 14:20] LABS: Alanine Aminotransferase 34 U/L (0-31); Albumin Level 4.1 g/dL (3.5-5.0); Alkaline Phosphatase 37 U/L (39-117); Anion Gap 13 (12-20); Aspartate Amino Transferase 23 U/L (5-31); Bilirubin Total 0.3 mg/dL (0.0-1.0); Blood Urea Nitrogen 11 mg/dL (9-16); Carbon Dioxide 27 mmol/L (22-29); Chloride 106 mmol/L (96-108); Cholesterol 227 mg/dL (<200); Estimated Glomerular Filt Rate > 60; Glucose Random 86 mg/dL (60-115); HDL Cholesterol 67 mg/dL (>40); LDL Cholesterol Calculated 150 mg/dL (<100); Potassium 4.2 mmol/L (3.3-5.1); Sodium 142 mmol/L (135-145); Total Protein 7.5 g/dL (6.5-8.0); Triglycerides 53 mg/dL (<150)
[2024-12-13 14:35] LABS: TSH reflex Free T4 1.83 uIU/mL (0.32-4.0); Vitamin D 25-OH Total 10.3 ng/mL (>30)
[2024-12-13 14:46] LABS: Vitamin B12 343 pg/mL (200-900)
[2024-12-13 16:21] LABS: CT PCR NOT DETECTED (Not Detect.); NG PCR NOT DETECTED (Not Detect.)
== END 2024-12-13 13:33 | disposition home or self-care (01) ==
LOC: HO.LAB 13:32
DX: Z00.00 Encounter for general adult medical examination without abnormal findings (principal); Z13.1 Encounter for screening for diabetes mellitus; Z13.220 Encounter for screening for lipoid disorders
CPT/HCPCS: 80053; 80061; 82306; 82607; 82746; 83036; 84443; 85025; 87491; 87591

== ENCOUNTER 2024-12-29 08:53 | Outpatient (REF) | payer OTHER, SELFPAY ==
--- NOTE | ~2024-12-29 | US_ITS ---
CLINICAL HISTORY: R79.89 - Other specified abnormal findings of blood chemistry Ultrasound of the abdomen Comparison: None Findings: The liver is normal in size, measuring 13.0cm. Mildly increased echogenicity without focal lesions. Normal flow is visualized within the portal vein. No intrahepatic biliary ductal dilatation. No cholelithiasis. No gallbladder wall thickening or pericholecystic fluid. Negative Ibanez's sign. The common bile duct is the upper limit of normal size, measuring 0.6cm. Unremarkable limited evaluation of the pancreas. The right kidney is normal in echogenicity and size, measuring 10.2cm. No nephrolithiasis or hydronephrosis. The left kidney is normal echogenicity and size, measuring 9.8cm. No nephrolithiasis or hydronephrosis. The spleen is without focal lesions and normal in size, measuring 7.5cm. The aorta and IVC are unremarkable. No ascites. Impression: Mild increase in echogenicity of the liver may indicate hepatic steatosis. This document has been electronically signed by: Raquel Espinal MD on 12/30/2024 13:29:36
--- OUTSIDE RECORDS SUMMARY | 2024-12-29 09:24 | XMS_ITS | Clinical Summary ---
Author Organization [facility] ity Address [address] [place] [address] Care Team Providers Care Shuttle Preparation Supervisor Name Role Phone David Solis MD Primary Care Provider Allergies No known active allergies Medications ARIPiprazole (ABILIFY) 5 mg tablet TOME ANTHONY TABLETA TODOS LOS D 4 Active clonazePAM (KlonoPIN) 0.5 mg tablet TAKE 1 TABLET BY MOUTH TWICE A DAY NEEDED FOR ANXIETY 4 Active DULoxetine (CYMBALTA) [address] capsule TOME ANTHONY C PSULA S LOS D 4 Active melatonin 10 mg capsule Take 1 Tablet by mouth at bedtime as needed (insomnia). 3 Active ondansetron (ZOFRAN) 4 mg tablet Take 1 Tablet by mouth every 12 hours as needed for Nausea. 4 Active sertraline (ZOLOFT) 100 mg tablet TOME ANTHONY TABLETA TODOS LOS D 4 Active traZODone (DESYREL) 100 mg tablet TOME ANTHONY TABLETA TODOS LOS D AT NIGHTTIME 4 Active Active Problems Problem Noted Date Diagnosed [...] drink = 0.6 oz pur e alcohol) Comments Unknown Sex and Gender Information Value Date Recorded Sex Assigned at Not on file Legal Sex Female 4:56 PM EST Gender Identity Not on file Sexual Orientation [...] Last Done Comments Breast Cancer Screening 1981 Hepatitis B Vaccines (1 of 3 - 19+ 3-dose series) 2000 Pneumococcal Vaccine: Pediatrics (0 to 5 Years) and At-Risk Patients (6 to 64 Years) (1 of 2 - PCV) 2000 Cervical Cancer Screening: P ap Smear [...] patient's age to complete this topic Meningococcal B Vacine Aged Out No lo nger eligible based on patient's age to complete [...] Maintenance Results * Depression Screening (04/27/2024) Pathologist [facility] Depression Screening Abstracted Historical Provider HEALTH MAINTENANCE Final Result * HIV Screening (12/12/2021) [facility] HIV Screening Abstracted Historical Provider HEALTH MAINTENANCE Final Result * (ABNORMAL) Lipid panel (12/12/2021) Pathologist [facility] LDL/HDL Ratio 2 0 - 4 Triglycerides 35 0 - 150 mg/dL Cholesterol 217(A) 0 - 200 mg/dL HDL 94 >=40 mg/dL LDL Cholesterol 116(A) 0 - 100 mg/dL Blood Venous blood specimen / Unknown Historical Provider LAB BLOOD ORDERABLES Lnea l Result from Last 3 Months or Most Recently Relevant to Health Maintenance Care Teams Shuttle Preparation Supervisor Relationship Specialty Start Date End Date David Solis MD [address] [place] [address] PCP - General 05/22/23
== END 2024-12-29 08:54 | disposition home or self-care (01) ==
LOC: HO.HMGCX 08:53
DX: R79.89 Other specified abnormal findings of blood chemistry (principal)
CPT/HCPCS: 76700

== ENCOUNTER → 2024-12-29 08:57 | Outpatient (BNV) | payer OTHER, SELFPAY | PROVIDERS: Visit Provider Radiology Diagnostic Radiology | DX: R79.89 Other specified abnormal findings of blood chemistry (principal) | CPT/HCPCS: 76700 ==

== ENCOUNTER 2024-12-30 14:33 | Outpatient (REF) | payer OTHER, SELFPAY ==
--- OUTSIDE RECORDS SUMMARY | 2024-12-30 14:54 | XMS_ITS | Encounter Summary ---
Author Organization [facility] Address [address] [place] [address] Care Team Providers Care Career Development Consultant Name Role Phone Coral Montenegro DO Primary Care Pro vider Unavailable Mahendra Redmond MD Primary Care Provider [phone] David Solis MD Primary Care Provider Encounter Details Date Type Department Care Team Description 01/17/2020 Data Control Clerk Supervisor Report Medical Records [address] [place] [address] Armaan Sandoval PA-C Social History Tobacco Use [...] on filedocumented in this encounter Care Teams Career Development Consultant Relationship Specialty Start Date End Date Coral Montenegro DO PCP - General Internal Medicine 12/12/19 05/22/21 Mahendra Rdemond MD [address] [place] [address] [phone] PCP - General Internal Medicine 05/23/21 05/21/23 David Solis MD [address] [place] [address] PCP - General Internal Medicine 05/22/23 documented as of this encounter
--- OUTSIDE RECORDS SUMMARY | 2024-12-30 14:54 | XMS_ITS | Clinical Summary ---
Author Organization [facility] Address [address] [place] [address] Care Team Providers Care Bingo Caller Name Role Phone David Solis MD Primary [...] Active aripiprazole (ABILIFY) 5 MG tablet TOME ATNHONY TABLETA TODOS LOS D 0 03/29/2024 Active [...] H RISK PATIENTS (#1) 2046 Care Teams Bingo Caller Relationship Specialty Start Date End Date David Solis MD [address] [place] [address] PCP - General Internal Medicine 05/22/23
--- OUTSIDE RECORDS SUMMARY | 2024-12-30 14:54 | XMS_ITS | Encounter Summary ---
Author Organization [facility] Address [address] [place] [address] Care Team Providers Care Production Ski Repairer Name Role Phone Coral Montenegro DO Primary Care Pro vider Unavailable Mahendra Redmond MD Primary Care Provider [phone] David Solis MD Primary Care Provider Encounter Details Date Type Department Care Team Description 01/19/2020 Ostomy Nurse Report Medical Records [address] [place] [address] Rehab., Nicolás Social History Tobacco Use Types [...] on filedocumented in this encounter Care Teams Production Ski Repairer Relationship Specialty Start Date End Date Coral Montenegro DO PCP - General Internal Medicine 12/12/19 05/22/21 Mahendra Redmond MD [address] [place] [address] [phone] PCP - General Internal Medicine 05/23/21 05/21/23 David Solis MD [address] [place] [address] PCP - General Internal Medicine 05/22/23 documented as of this encounter
--- OUTSIDE RECORDS SUMMARY | 2024-12-30 14:54 | XMS_ITS | Encounter Summary ---
Author Organization [facility] Address [address] [place] [address] Care Team Providers Care University Archivist Name Role Phone Sky Carranza MD Primary Care Provider Un available Coral Montenegro DO Primary Care Pro vider Unavailable Mahendra Redmond MD Primary Care Provider [phone] David Solis MD Primary Care Provider Encounter Details Date Type Department Care Team Description 02/19/2017 Release of Information Medical Records [address] [place] [address] Abstract, Provider Social History Tobacco Use Types [...] on filedocumented in this encounter Care Teams University Archivist Relationship Specialty Start Date End Date Sky Carranza MD PCP - General Internal Medicine 02/17/17 0 Coral Montenegro DO PCP - General Internal Medicine 12/12/19 05/22/21 Mahendra Redmond MD [address] [place] [address] [phone] PCP - General Internal Medicine 05/23/21 05/21/23 David Solis MD [address] [place] [address] [place] [address] PCP - General Internal Medicine 05/22/23 documented as of this encounter
--- OUTSIDE RECORDS SUMMARY | 2024-12-30 14:54 | XMS_ITS | Clinical Summary ---
Author Organization [facility] ity Address [address] [place] [address] Care Team Providers Care Cloth Laminating Supervisor Name Role Phone David Solis MD [...] * Depression Screening (04/27/2024) Pathologist [facility] Depression Screening Abstracted Historical Provider HEALTH MAINTENANCE Final Result * HIV Screening (12/12/2021) [facility] HIV Screening Abstracted Historical Provider HEALTH MAINTENANCE Final Result * (ABNORMAL) Lipid panel (12/12/2021) Pathologist [facility] LDL/HDL Ratio 2 0 - 4 Triglycerides 35 0 - 150 mg/dL Cholesterol 217(A) 0 - 200 mg/dL HDL 94 >=40 mg/dL LDL Cholesterol 116(A) 0 - 100 mg/dL Blood Venous blood specimen / Unknown Historical Provider LAB BLOOD ORDERABLES Lena l Result from Last 3 Months or Most Recently Relevant to Health Maintenance Care Teams Cloth Laminating Supervisor Relationship Specialty Start Date End Date David Solis MD [address] [place] [address] PCP - General 05/22/23
--- OUTSIDE RECORDS SUMMARY | 2024-12-30 14:54 | XMS_ITS | Encounter Summary ---
Author Organization [facility] Address [address] [place] [address] Care Team Providers Care Facility Engineer Name Role Phone Coral Montenegro DO Primary Care Pro vider Unavailable Mahendra Redmond MD Primary Care Provider [phone] David Solis MD Primary Care Provider Encounter Details Date Type Department Care Team Description 03/14/2020 Grinder Set Up Operator Jig Report Medical Records [address] [place] [id number] Armaan Sandoval PA-C Social History Tobacco Use [...] on filedocumented in this encounter Care Teams Facility Engineer Relationship Specialty Start Date End Date Coral Montenegro DO PCP - General Internal Medicine 12/12/19 05/22/21 Mahendra Redmond MD [address] [place] [address] PCP - General Internal Medicine 05/23/21 05/21/23 David Solis MD [address] [place] [address] PCP - General Internal Medicine 05/22/23 documented as of this encounter
== END 2024-12-30 14:34 | disposition home or self-care (01) ==
LOC: HO.MAMMO 14:33
DX: Z12.31 Encounter for screening mammogram for malignant neoplasm of breast (principal)
CPT/HCPCS: 77063; 77067

== ENCOUNTER → 2024-12-30 14:45 | Outpatient (BNV) | payer OTHER, SELFPAY | PROVIDERS: Visit Provider Internal Medicine | DX: Z12.31 Encounter for screening mammogram for malignant neoplasm of breast (principal) | CPT/HCPCS: 77063; 77067 ==

== ENCOUNTER 2025-01-06 14:50 | Outpatient (AMB) | payer OTHER, SELFPAY ==
[2025-01-06 15:14] VITALS: BP 116/76; PULSE 76; TEMP 36.4; O2SAT 98; BMI 28.5
--- NOTE | 2025-01-06 15:14 | MHC.PC.OV ---
Vital Signs 01/06/25 15:14 Height 5 ft 4 in Weight 166 lb BMI 28.5 BP 116/76 Blood Pressure Location Lt brachial Position Sitting Pulse 76 Pulse Source Pulse Oximeter Temp 97.5 F Temp Source Temporal Artery Scan Pulse Oximetry (%) 98 Oxygen Delivery Method Room Air Intake Visit Reasons: pe Intake Note: Patient is here today for a physical. Processing Archivist Required: Yes Processing Archivist Language: Namibian Accompanied by: Self / Same As Patient Allergies lamotrigine [From Lamictal] Adverse Reaction (Verified 01/06/25 15:19) Anaphylaxis Medication List - Last Reconciled 01/06/25 by Jeri Clayton PA-C cholecalciferol (vitamin D3) 25 mcg PO DAILY clonazepam mg PO duloxetine 60 mg PO DAILY omeprazole 20 mg PO DAILY sertraline 75 mg PO DAILY sertraline 100 mg PO DAILY trazodone 100 mg PO BEDTIME 30 days Tobacco use date assessed: 12/08/24 Dental Screening Dental Screen Date: 12/08/24 HPI pe HPI Details 44-year-old female with past medical history of depression and PTSD last seen 12/03 coming in for annual exam.? In review of the notes, patient completed mammogram 12/30/2024 has not been read yet. Mammogram: Completed 12/30/2024 has not been read Colonoscopy: Will be due in 2 years Pap smear: Annual physical booked for February with gynecology Vaccine: Tetanus shot up-to-date 2017 airbrush painter ([id number] Mallika) used for the duration of this visit. Patient has no acute concerns today. [facility] Medical History Chronic post-traumatic stress disorder (PTSD) Social History Household Members: Spouse and Children Housing: House Do you presently have visiting nurse or other home services: No Patient Tobacco Use Status: Never used Tobacco e-Cigarette/Vaping Use: Never Used service: No Current occupational status: disabled Current occupation: disabled for psychiatric concerns Sexual orientation: Straight/Heterosexual Cognitive needs: No Hearing needs: No Vision needs: No Questionnaire Thrive Questionnaire Date Thrive assessed: 12/01/24 I am a: Patient What is your living situation today?: I have a steady place to live Within the past 12 months, did the food you bought not last and you didn't have the money to get more?: Never true Within the past 12 months, did you worry whether your food would run out before you got money to buy more?: Sometimes True Do you have trouble paying for medicines?: No Do you have trouble getting transportation to medical appointments?: No Do you have trouble paying your heating and electricity bill?: Yes Do you have trouble taking care of your child, family member or friend?: No Do you have trouble with day-to-day activities such as bathing, preparing meals, shopping, managing finances, etc.?: Yes Are you currently unemployed and looking for a job?: No Are you interested in more education?: Yes Please select the resources that you would like help with: Utilities Currently or been in a relationship where the following occur: No concerns reported THRIVE Score: 2 CESARIO-7 AMB Questionnaire CESARIO-7 Date CESARIO - 7 assessed: 12/08/24 Source: Developed by Drs. Kel Everett, Laura Betts, Randell Atkinson and colleagues, with an educational polly from [employer]. Review of Systems Const Denies body aches, Denies fatigue, Denies fever(s), Denies frequent falls, Denies headache(s) and Denies weakness Eyes Reports no additional complaints and Denies change in vision ENT Denies dysphagia, Denies dizziness, Denies facial pain, Denies headache(s), Denies nasal congestion and Denies odynophagia Card Denies chest pain, Denies syncope, Denies irregular heart rhythm, Denies leg edema, Denies lightheadedness and Denies dyspnea Resp Denies cough and Denies dyspnea GI Denies abdominal pain, Reports constipation, Denies dysphagia, Denies dyspepsia, Denies diarrhea, Denies nausea, Denies odynophagia and Denies vomiting Denies urinary frequency, Denies dysuria, Denies urinary hesitancy and Denies urinary urgency Musc Denies back pain and Denies myalgias Skin/Breast Reports system reviewed and no additional complaints, except as documented Neuro Denies dizziness, Denies syncope, Denies frequent falls, Denies headache(s) and Denies weakness Psych Reports no additional complaints Endo Denies fatigue Physical exam (Primary Care) Vital Signs: Last Vital Signs Temp 97.5 F 01/06/25 15:14 Pulse 76 01/06/25 15:14 BP 116/76 01/06/25 15:14 Pulse Ox 98 01/06/25 15:14 Oxygen Delivery Method Room Air 01/06/25 15:14 BMI result Body Mass Index 28.5 Tobacco/Smoking Status: Tobacco use Status Tobacco use date assessed 12/08/24 01/06/25 15:16 Patient Tobacco Use Status Never used Tobacco 01/06/25 15:16 e-Cigarette/Vaping Use Never Used 01/06/25 15:16 Thrive Assessment: Date of Thrive Assessment Date Thrive assessed 12/01/24 01/06/25 15:16 Currently or been in a relationship where the following occur: No concerns reported Const General: cooperative, healthy appearing, comfortable and no acute distress Orientation/consciousness: patient oriented x3 HENMT Head: Yes normocephalic Ears: hearing grossly normal bilaterally, external ears normal, TM's normal bilaterally and EAC's normal General nose exam: Normal external nose present Face and sinus: Yes normal facial exam and Yes sinuses nontender Mouth: Normal oral and palatal mucosa present and tongue normal Throat: Yes posterior oropharynx normal Eyes General: appearance normal, both eyes and all related structures Conjunctivae: conjunctivae normal Pupils: Equal, round and reactive pupils present EOM: EOMs intact bilaterally and No Nystagmus present Neck Neck: Yes normal visual inspection, Yes full ROM and Yes no lymphadenopathy Chest Chest palpation & inspection: normal inspection of the chest Resp Effort & Inspection: normal respiratory effort Auscultation: clear to auscultation bilaterally, no crackles, no rales, no rhonchi, no wheezes and breath sounds present Cardio Rate: regular rate Rhythm: regular rhythm Peripheral pulses: radial pulses present and dorsalis pedis present GI Inspection: Yes normal to inspection and No Abdominal wall edema Palpation (GI): Soft to palpation, not firm and nontender Auscultation: normal bowel sounds Rectal Exam - Female: deferred General: Yes no CVA tenderness Back/Spine/Pelvis Back: no CVA tenderness Skin General skin exam: no rashes or lesions noted Neuro General: patient oriented x3 Cranial nerves: Yes Equal, round and reactive pupils present, Yes Midline tongue present, Yes Ability to bilaterally elevate shoulders present and No Nystagmus present Gait exam (Neuro): Normal gait present Extrem General: Yes normal to inspection, Yes full ROM, No no pedal edema and No edema Psych Speech and movement: Normal speech and movement present Affect: normal affect Insight: Good insight present (Psych) Judgement: Good judgement present (Psych) Coding Level of Care Code Est Pt Prev Care 40-64y(77215) Diagnoses Constipation, unspecified constipation type K59.00 Constipation type: unspecified constipation type Overweight (BMI 25.0-29.9) E66.3 Major depressive disorder, recurrent episode F33.9 Major depression episode severity: severe Chronic post-traumatic stress disorder (PTSD) F43.12 Fatty liver K76.0 Annual physical exam Z00.00 Hypercholesteremia E78.00 Vitamin D deficiency E55.9 Assessment & Plan Assessment & Plan (1) Constipation: Code(s): K59.00 - Constipation, unspecified Category: Medical Qualifiers: Constipation type: unspecified constipation type Qualified Code(s): K59.00 - Constipation, unspecified Plan: Three rolls of constipation. Increase water intake, increase fiber intake and exercise regularly. Colace given. (2) Overweight (BMI 25.0-29.9): Code(s): E66.3 - Overweight Category: Medical Plan: Healthy diet and regular exercise is encouraged. Discussed injections today however patient does not have a BMI that would make her a candidate for weight loss injections. (3) Major depressive disorder, recurrent episode: Comment: Mamadou Cavazos for tx Code(s): F33.9 - Major depressive disorder, recurrent, unspecified Category: Medical Qualifiers: Major depression episode severity: severe Plan: Currently on clonazepam, duloxetine, sertraline and trazodone following with a psychiatrist and counselor. (4) Chronic post-traumatic stress disorder (PTSD): Code(s): F43.12 - Post-traumatic stress disorder, chronic Category: Medical Plan: Currently on trazodone, sertraline, duloxetine and clonazepam. Following with Psychiatry and counselor. (5) Fatty liver: Code(s): K76.0 - Fatty (change of) liver, not elsewhere classified Category: Medical Plan: Healthy diet and regular exercise is encouraged. Continue to monitor LFTs (6) Annual physical exam: Code(s): Z00.00 - Encounter for general adult medical examination without abnormal findings Category: Medical Plan: Patient is up-to-date on all recommended routine screenings and vaccinations for her age. Blood work is up-to-date within normal limits and addressed today. Pap smear we will be completed by Gynecology. (7) Hypercholesteremia: Code(s): E78.00 - Pure hypercholesterolemia, unspecified Category: Medical Plan: Avoid foods that are high in cholesterol such as red meat, fried foods, eggs and baked goods. Triglyceride goal of less than 150 and LDL goal of less than 130 . Cholesterol elevated on last blood work plan to repeat in 3 months with follow up at that time. Patient was provided with informational packet on high cholesterol foods (8) Vitamin D deficiency: Code(s): E55.9 - Vitamin D deficiency, unspecified Category: Medical Plan: Continue to monitor with blood work currently on cholecalciferol for replacement. Plan This note was constructed using voice recognition software. While every effort has been made to ensure accuracy and alternative energy engineer, still areas may have been included sometimes these areas may affect the content or meeting of the given symptoms. Total time spent caring for the patient today was 30 minutes. This includes time spent before the visit reviewing the chart, time spent during the visit, and time spent after the visit and documentation. Patient was informed and verbally consented to the use of an ambient scribe for clinic note documentation during this visit. Orders: Orders Lipid Panel 3 Months E78.00 - Pure hypercholesterolemia, unspecified Referrals Optometry Referral Z00.00 - Encounter for general adult medical examination without abnormal findings Medications: New docusate sodium (Colace) 100 mg PO DAILY 30 caps 2RF
--- OUTSIDE RECORDS SUMMARY | 2025-01-06 17:01 | XMS_ITS | Clinical Summary ---
Author Organization [facility] Address [address] [place] [address] Care Team Providers Care Fur Blowing Machine Attendant Name Role Phone David Solis MD Primary [...] Maintenance Results * Depression Screening (04/27/2024) Pathologist [facility] Depression Screening Abstracted Historical Provider HEALTH MAINTENANCE Final Result * HIV Screening (12/12/2021) [facility] HIV Screening Abstracted Historical Provider HEALTH MAINTENANCE Final Result * (ABNORMAL) Lipid panel (12/12/2021) Pathologist [facility] LDL/HDL Ratio 2 0 - 4 Triglycerides 35 0 - 150 mg/dL Cholesterol 217(A) 0 - 200 mg/dL HDL 94 >=40 mg/dL LDL Cholesterol 116(A) 0 - 100 mg/dL Blood Venous blood specimen / Unknown Historical Provider LAB BLOOD ORDERABLES Lena l Result from Last 3 Months or Most Recently Relevant to Health Maintenance Care Teams Fur Blowing Machine Attendant Relationship Specialty Start Date End Date David Solis MD [address] [place] [address] PCP - General 05/22/23
== END 2025-01-06 15:44 | disposition home or self-care (01) ==
DX: K59.00 Constipation, unspecified (principal); E66.3 Overweight; F33.9 Major depressive disorder, recurrent, unspecified; F43.12 Post-traumatic stress disorder, chronic; K76.0 Fatty (change of) liver, not elsewhere classified; Z00.00 Encounter for general adult medical examination without abnormal findings; E78.00 Pure hypercholesterolemia, unspecified; E55.9 Vitamin D deficiency, unspecified

== ENCOUNTER → 2025-01-06 14:50 | Outpatient (BNVA) | payer OTHER, SELFPAY | DX: Z00.00 Encounter for general adult medical examination without abnormal findings (principal); K59.00 Constipation, unspecified; E66.3 Overweight; F33.9 Major depressive disorder, recurrent, unspecified; F43.12 Post-traumatic stress disorder, chronic; K76.0 Fatty (change of) liver, not elsewhere classified; E78.00 Pure hypercholesterolemia, unspecified; E55.9 Vitamin D deficiency, unspecified | CPT/HCPCS: 99396 ==

== ENCOUNTER 2025-04-04 13:41 | Outpatient (REF) | payer OTHER, SELFPAY ==
[2025-04-04 16:13] LABS: Cholesterol 256 mg/dL (<200); HDL Cholesterol 73 mg/dL (>40); LDL Cholesterol Calculated 170 mg/dL (<100); Triglycerides 67 mg/dL (<150)
[2025-04-05 08:59] LABS: HBS Num1 0.84 mIU/mL (0-7.99); HBc Num1 0.08 S/CO (0.00-0.79); HBsAGNum1 0.33 S/CO (0.00-0.99); Hepatitis B Core Antibody Nonreactive (Nonreactive); Hepatitis B Surface Antigen Negative (Negative); ~HepC Num1 0.21 S/CO (0.00-0.79); ~Hepatitis B Surface Antibody NONREACTIVE (Nonreactive); ~Hepatitis C Antibody Nonreactive (Nonreactive)
== END 2025-04-04 13:42 | disposition home or self-care (01) ==
LOC: HO.LAB 13:41
DX: E78.00 Pure hypercholesterolemia, unspecified (principal); R79.89 Other specified abnormal findings of blood chemistry
CPT/HCPCS: 36415; 80061; 86704; 86706; 86803; 87340

== ENCOUNTER 2025-04-05 14:08 | Outpatient (AMB) | payer OTHER, SELFPAY ==
--- NOTE | 2025-04-05 14:10 | MHC.PC.OV ---
Vital Signs 04/05/25 14:12 04/05/25 14:27 Height 5 ft 4 in Weight 156 lb 4 oz BMI 26.8 BP 122/70 Blood Pressure Location Lt brachial Position Sitting Pulse 102 H 94 Pulse Source Pulse Oximeter Auscultation Temp 97.1 F Temp Source Temporal Artery Scan Pulse Oximetry (%) 98 Oxygen Delivery Method Room Air Intake Visit Reasons: f/u HLD Intake Note: Patient is here to follow up on HLD. Tank Pumper Panelboard Required: Yes Tank Pumper Panelboard Language: Niuean Information Interpreted: non-clinical & clinical Calender Roll Press Operator: Not Required per policy Accompanied by: Self / Same As Patient Allergies lamotrigine [From Lamictal] Adverse Reaction (Verified 04/05/25 14:22) Anaphylaxis Medication List - Last Reconciled 04/05/25 by Jeri Clayton PA-C cholecalciferol (vitamin D3) 25 mcg PO DAILY clonazepam mg PO docusate sodium (Colace) 100 mg PO DAILY duloxetine 60 mg PO DAILY omeprazole 20 mg PO DAILY sertraline 75 mg PO DAILY sertraline 100 mg PO DAILY trazodone 100 mg PO BEDTIME 30 days Tobacco use date assessed: 04/05/25 Dental Screening Dental Screen Date: 12/08/24 HPI f/u HLD HPI Details 44-year-old female with past medical history of depression and PTSD last seen 12/2024 coming in for follow up on cholesterol. Patient's LDL has increased from 150-170. I calculated her ASCVD risk score which was 0.6% and no statin was recommended. Presenting with a follow-up for weight management and hyperlipidemia. She has experienced a 10-pound weight loss since her last visit. While in [place], she was given semaglutide, which assisted in controlling her anxiety and appetite. Her LDL cholesterol level has risen from 150 to 170, despite previous dietary counseling. She reports numbness and tingling in her hands, fingers, lips, and face, which correlate with episodes of significant anxiety. These episodes last between 15 to 20 minutes, resolving as her anxiety diminishes. She has communicated these symptoms to her therapist, though details were limited due to family presence during the telehealth appointment. supervisor tree trimming [id number] Brad was used for the duration of this visit. [facility] Medical History Chronic post-traumatic stress disorder (PTSD) Social History Household Members: Spouse and Children Housing: House Do you presently have visiting nurse or other home services: No Patient Tobacco Use Status: Never used Tobacco e-Cigarette/Vaping Use: Never Used Second Hand Smoke Exposure: No service: No Current occupational status: disabled Current occupation: disabled for psychiatric concerns Sexual orientation: Straight/Heterosexual Cognitive needs: No Hearing needs: No Vision needs: No Questionnaire Thrive Questionnaire Date Thrive assessed: 12/01/24 I am a: Patient What is your living situation today?: I have a steady place to live Within the past 12 months, did the food you bought not last and you didn't have the money to get more?: Never true Within the past 12 months, did you worry whether your food would run out before you got money to buy more?: Sometimes True Do you have trouble paying for medicines?: No Do you have trouble getting transportation to medical appointments?: No Do you have trouble paying your heating and electricity bill?: Yes Do you have trouble taking care of your child, family member or friend?: No Do you have trouble with day-to-day activities such as bathing, preparing meals, shopping, managing finances, etc.?: Yes Are you currently unemployed and looking for a job?: No Are you interested in more education?: Yes Please select the resources that you would like help with: Utilities Currently or been in a relationship where the following occur: No concerns reported THRIVE Score: 2 CESARIO-7 AMB Questionnaire CESARIO-7 Date CESARIO - 7 assessed: 12/08/24 Source: Developed by Drs. Kel Everett, Laura Betts, Randell Atkinson and colleagues, with an educational polly from [employer]. Review of Systems Const Denies body aches, Denies chills, Denies fever(s), Denies headache(s) and Denies poor appetite Eyes Reports no additional complaints ENT Denies dysphagia, Denies dizziness, Denies headache(s) and Denies odynophagia Card Denies chest pain, Denies syncope, Denies edema, Denies irregular heart rhythm, Denies lightheadedness and Denies dyspnea Resp Denies cough and Denies dyspnea GI Denies abdominal pain, Denies constipation, Denies dysphagia, Denies diarrhea, Denies nausea, Denies odynophagia and Denies vomiting Reports no additional complaints Musc Reports no additional complaints and Denies abnormal gait Skin/Breast Reports system reviewed and no additional complaints, except as documented Neuro Denies abnormal gait, Denies dizziness, Denies syncope and Denies headache(s) Psych Reports no additional complaints Physical exam (Primary Care) Vital Signs: Last Vital Signs Temp 97.1 F 04/05/25 14:12 Pulse 94 04/05/25 14:27 BP 122/70 04/05/25 14:12 Pulse Ox 98 04/05/25 14:12 Oxygen Delivery Method Room Air 04/05/25 14:12 BMI result Body Mass Index 26.8 Tobacco/Smoking Status: Tobacco use Status Tobacco use date assessed 04/05/25 04/05/25 14:16 Patient Tobacco Use Status Never used Tobacco 04/05/25 14:16 e-Cigarette/Vaping Use Never Used 04/05/25 14:16 Thrive Assessment: Date of Thrive Assessment Date Thrive assessed 12/01/24 04/05/25 14:16 Currently or been in a relationship where the following occur: No concerns reported Const General: cooperative, healthy appearing, comfortable and no acute distress Orientation/consciousness: patient oriented x3 HENMT Head: Yes normocephalic Ears: hearing grossly normal bilaterally General nose exam: Normal external nose present Eyes General: appearance normal, both eyes and all related structures Conjunctivae: conjunctivae normal Neck Neck: Yes full ROM and Yes no lymphadenopathy Resp Effort & Inspection: normal respiratory effort Auscultation: clear to auscultation bilaterally, no crackles, no rales, no rhonchi and no wheezes Cardio Rate: regular rate Rhythm: regular rhythm Skin General skin exam: no rashes or lesions noted Neuro Other: Cranial nerves intact and no evidence of weakness. General: patient oriented x3 Cranial nerves: Yes CN's II-XII intact bilaterally Gait exam (Neuro): Normal gait present Extrem General: Yes normal to inspection, Yes full ROM and No edema Psych Affect: normal affect Attitude: cooperative Insight: Good insight present (Psych) Judgement: Good judgement present (Psych) Coding Level of Care Code Est Pt Level 3 (53547) Diagnoses Overweight (BMI 25.0-29.9) E66.3 Fatty liver K76.0 Hypercholesteremia E78.00 Facial numbness R20.0 Assessment & Plan Assessment & Plan (1) Overweight (BMI 25.0-29.9): Code(s): E66.3 - Overweight Category: Medical Plan: Healthy diet and regular exercise is encouraged. Discussed injections today however patient does not have a BMI that would make her a candidate for weight loss injections or weight loss clinic. She does have noted 10 lb weight loss since last visit. (2) Fatty liver: Code(s): K76.0 - Fatty (change of) liver, not elsewhere classified Category: Medical Plan: Healthy diet and regular exercise is encouraged. Continue to monitor LFTs (3) Hypercholesteremia: Code(s): E78.00 - Pure hypercholesterolemia, unspecified Category: Medical Plan: Avoid foods that are high in cholesterol such as red meat, fried foods, eggs and baked goods. Triglyceride goal of less than 150 and LDL goal of less than 130. Last LDL increased to 170, ASCVD risk score 0.6% not indicating statin at this time. Plan to continue monitoring at this time. (4) Facial numbness: Code(s): R20.0 - Anesthesia of skin Category: Medical Plan: Patient reports facial numbness with episodes of anxiety that resolved spontaneously once anxiety resolves. I did offer to order a CAT scan of the patient has had for further evaluation but she declined today. Plan to continue to follow with psychiatrist in his being seen on Thursday. Referral to neurologist also considered. Plan We discussed the patient's progress in weight management, acknowledging her 10-pound weight loss and the temporary use of semaglutide for appetite and anxiety control. Due to insurance limitations, we reviewed alternative options for obtaining semaglutide, noting the potential costs involved. For her hyperlipidemia, we reiterated the importance of dietary modifications, as her LDL cholesterol has increased despite previous counseling. Regarding her anxiety-related numbness and tingling, we recommended she further discuss these symptoms with her psychiatrist. This note was constructed using voice recognition software. While every effort has been made to ensure accuracy and patch machine operator, still areas may have been included sometimes these areas may affect the content or meeting of the given symptoms. Total time spent caring for the patient today was 30 minutes. This includes time spent before the visit reviewing the chart, time spent during the visit, and time spent after the visit and documentation. Patient was informed and verbally consented to the use of an ambient scribe for clinic note documentation during this visit. Orders: Orders Lipid Panel 3 Months E78.00 - Pure hypercholesterolemia, unspecified Medications: Refilled ondansetron HCl 4 mg PO Q6H PRN 30 tabs 0RF nausea and vomiting
[2025-04-05 14:12] VITALS: BP 122/70; PULSE 102; TEMP 36.2; O2SAT 98; BMI 26.8
[2025-04-05 14:27] VITALS: PULSE 94
--- OUTSIDE RECORDS SUMMARY | 2025-04-05 15:03 | XMS_ITS | Encounter Summary ---
Author Organization [facility] Address [address] [place] [address] Care Team Providers Care Psychiatric Mental Health Nurse Name Role Phone Coral Montenegro DO Primary Care Pro vider Unavailable Mahendra Redmond MD Primary Care Provider [phone] David Solis MD Primary Care Provider Encounter Details Date Type Department Care Team Description 12/22/2019 Transfer Records Medical Records [address] [place] [address] Social History Tobacco Use Types Packs/Day Years [...] on filedocumented in this encounter Care Teams Psychiatric Mental Health Nurse Relationship Specialty Start Date End Date Coral Montenegro DO PCP - General Internal Medicine 12/12/19 05/22/21 Mahendra Redmond MD [address] [place] [id number] PCP - General Internal Medicine 05/23/21 05/21/23 David Solis MD [address] [place] [phone] PCP - General Internal Medicine 05/22/23 documented as of this encounter
== END 2025-04-05 14:42 | disposition home or self-care (01) ==
LOC: HO.HMCH 14:09
DX: E66.3 Overweight (principal); K76.0 Fatty (change of) liver, not elsewhere classified; E78.00 Pure hypercholesterolemia, unspecified; R20.0 Anesthesia of skin

== ENCOUNTER → 2025-04-05 14:08 | Outpatient (BNVA) | payer OTHER, SELFPAY | DX: E66.3 Overweight (principal); Z68.26 Body mass index [BMI] 26.0-26.9, adult; K76.0 Fatty (change of) liver, not elsewhere classified; E78.00 Pure hypercholesterolemia, unspecified; R20.0 Anesthesia of skin | CPT/HCPCS: 99212 ==

== ENCOUNTER 2025-06-28 09:38 | Outpatient (REF) | payer OTHER, SELFPAY | END 2025-06-28 09:39 | disposition home or self-care (01) | LOC: HO.LNP 09:38 | PROVIDERS: Visit Provider Obstetrics & Gynecology | DX: Z01.419 Encounter for gynecological examination (general) (routine) without abnormal findings (principal); Z98.51 Tubal ligation status | CPT/HCPCS: 87626; 88175; 99386 ==

== ENCOUNTER 2025-06-28 09:38 | Outpatient (AMB) | payer OTHER, SELFPAY ==
--- NOTE | 2025-06-28 09:39 | MHC.OFFVIS ---
Vital Signs 06/28/25 09:43 Height 5 ft 4 in Weight 190 lb BMI 32.6 BP 128/82 Intake Visit Reasons: annual/DO NOT RS x2 Stock Plan Administrator Required: Yes Stock Plan Administrator Language: Lead Business Systems Analyst Services: Stock Plan Administrator Present (in person) Stock Plan Administrator Name: Karena COUGHLIN Information Interpreted: non-clinical & clinical Linux Server Administrator: Linux Server Administrator Present (Karena COUGHLIN) Accompanied by: Spouse Allergies lamotrigine (From Lamictal) Adverse Reaction (Verified 04/05/25 14:22) Anaphylaxis Is last menstrual period known: Yes Last menstrual period: 06/04/25 HPI Comments Details: Presenting for annual exam. No complaints. Last Pap/HPV was many years ago Last Mammogram was BI-RADS 1 in 01/03 [facility] Medical History Chronic post-traumatic stress disorder (PTSD) Surgical History (Updated 06/28/25 @ 09:47 by Karena Maria CMA) Hx of abdominoplasty Hx of tubal ligation Family History (Updated 06/28/25 @ 09:50 by Karena Maria CMA) Mother Diabetes HTN (hypertension) Kidney failure Father High cholesterol COPD (chronic obstructive pulmonary disease) Social History (Updated 06/28/25 @ 09:51 by Karena Maria CMA) Household Members: Spouse and Children Housing: House Do you presently have visiting nurse or other home services: No Alcohol intake: never Patient Tobacco Use Status: Never used Tobacco e-Cigarette/Vaping Use: Never Used Second Hand Smoke Exposure: No Use of substances other than those prescribed or required for medical reasons: No service: No Current occupational status: disabled Current occupation: disabled for psychiatric concerns Sexually active: Yes Sexual orientation: Straight/Heterosexual Gender identity: Female Cognitive needs: No Hearing needs: No Vision needs: No Female Reproductive History Menstrual Age of Menarche: 14 Duration of menses: 3-5 days Date of last menstrual period: 06/04/25 control method: permanent sterilization Total pregnancies: 2 Full term: 2 Number of Living Children: 2 Date of Mammogram: 12/30/24 Review of Systems Const All systems reviewed & are unremarkable except as noted in HPI and below Card Reports as per HPI Resp Reports as per HPI GI Reports as per HPI and Reports no additional complaints Reports as per HPI Physical Exam Vital Signs: Last Vital Signs BP 128/82 06/28/25 09:43 BMI result Body Mass Index 32.6 Const General: cooperative, healthy appearing and comfortable Chest Chest palpation & inspection: normal inspection of the chest and normal palpation of entire chest wall Breast/axilla inspection: normal inspection of the breasts and normal inspection of the axillae Breast/axilla palpation: normal palpation of the breasts, normal palpation of the axillae and no axillary lymphadenopathy Resp Effort & Inspection: normal respiratory effort Auscultation: clear to auscultation bilaterally Percussion: percussion normal Cardio Palpation: normal PMI Rate: regular rate Rhythm: regular rhythm Heart sounds: no murmurs and no rubs Peripheral pulses: Peripheral pulses 2+ throughout GI Inspection: Yes normal to inspection Palpation (GI): Soft to palpation, nontender, no guarding, not rigid and No hepatosplenomegaly present Percussion: Yes normal to percussion Auscultation: normal bowel sounds Rectal Exam - Female: deferred General: Yes bladder normal to palpation External Female Exam: No lesion Speculum Exam - Vagina: normal appearance of the vagina, normal palpation, normal vaginal discharge and not erythematous Speculum Exam - Cervix: normal appearance of the cervix and normal palpation Bimanual exam- vagina & uterus: normal bimanual exam, normal palpation, uterine size normal, bladder normal to palpation, consistency normal and normal palpation Bimanual Exam- Adnexa, other: normal adnexae, no masses and no tenderness Assessment & Plan Assessment & Plan (1) Well woman exam: Code(s): Z01.419 - Encounter for gynecological examination (general) (routine) without abnormal findings Category: Medical Plan: Cotesting done. Instructions given to patient to schedule next screening Mammogram in 01/04 Counseled the patient about the recommended dietary allowance of 1000 mg of Calcium & 600 IU of vitamin D. The patient was instructed to perform monthly self-breast exams and to schedule an annual exam in a year; All questions answered and the patient verbalized understanding. Instructed the patient to schedule annual exam in a year Coding Level of Care Code New Pt Prev Care 40-64y(82948) Diagnoses Well woman exam Z01.419
[2025-06-28 09:43] VITALS: BP 128/82; BMI 32.6
--- OUTSIDE RECORDS SUMMARY | 2025-06-28 10:25 | XMS_ITS | Clinical Summary ---
Author Organization [facility] ity Address [address] [place] [address] Care Team Providers Care Import/Export Agent Name Role Phone David Solis MD Primary [...] 5 Years) and At-Risk Patients (6 to 49 Years) (1 of 2 - PCV) 2000 Cervical Cancer Screening: P ap Smear 2002 Hepatitis C Screening 10/08/2022 Social Influencers of Health Screening 10/08/2022 COVID-19 Vaccine (3 - 2023-2 5 season) 2024 07/12/2021, 06/19/2021 Depression Screening 11/09/2024 04/27/2024 Influenza Vaccine (#1) 2025 Cholesterol Screening (Lipid Panel) 12/12/2026 12/12/2021 DTaP,Tdap,and [...] age to complete this topic Meningococcal B Vaccine Aged Out No l onger eligible based on patient's age to complete [...] Maintenance Results * Depression Screening (04/27/2024) Pathologist [facility] Depression Screening Abstracted Historical Provider HEALTH MAINTENANCE Final Result * HIV Screening (12/12/2021) [facility] HIV Screening Abstracted Historical Provider HEALTH MAINTENANCE Final Result * (ABNORMAL) Lipid panel (12/12/2021) Pathologist [facility] LDL/HDL Ratio 2 0 - 4 Triglycerides 35 0 - 150 mg/dL Cholesterol 217(A) 0 - 200 mg/dL HDL 94 >=40 mg/dL LDL Cholesterol 116(A) 0 - 100 mg/dL Blood Venous blood specimen / Unknown Historical Provider LAB BLOOD ORDERABLES Lena l Result from Last 3 Months or Most Recently Relevant to Health Maintenance Care Teams Import/Export Agent Relationship Specialty Start Date End Date David Solis MD [address] [place] [address] [facility] - General 05/22/23
--- OUTSIDE RECORDS SUMMARY | 2025-06-28 10:25 | XMS_ITS ---
Author Name [facility] Organization Unknown Care Team Organization Name Specialty Phone Email Start Date End Da te [facility] Sugar Hughes Primary Care 08/12/202306/09
== END 2025-06-28 10:19 | disposition home or self-care (01) ==
PROVIDERS: Visit Provider Obstetrics & Gynecology
DX: Z01.419 Encounter for gynecological examination (general) (routine) without abnormal findings (principal)
CPT/HCPCS: 99386; 99459

== ENCOUNTER 2025-07-04 01:07 | Inpatient (IN) | payer MEDICARE, MEDICAID, SELFPAY ==
[2025-07-04 01:11] VITALS: BP 114/71; PULSE 92; RESP 18; TEMP 36.6; O2SAT 96; BMI 27.3
[2025-07-04 01:36] LABS: MANUAL DIFF FLAG NO
[2025-07-04 01:40] LABS: Hematocrit 32.9 % (37.0-47.0); Hemoglobin 10.3 g/dl (12.0-16.0); Imm Gran Abs Auto 0.01 X10*3/uL (0.00-0.03); Imm Gran Pct Auto 0.1 % (0.0-0.4); Lymphocytes Absolute Auto 2.7 X10*3/uL (1.2-4.9); Mean Corpuscular HGB Conc 31.3 g/dl (31.0-35.0); Mean Corpuscular Hemoglobin 22.4 pg (27.0-33.0); Mean Corpuscular Volume 71.5 fL (80.0-98.0); NRBC Abs Auto 0.000 X10*3/uL (0.0-0.012); NRBC Pct Auto 0.0 /100WBC (0.0-0.2); Platelet Count 332 X10*3/uL (160-400); Red Blood Count 4.60 X10*6/uL (4.20-5.50); White Blood Count 6.7 X10*3/uL (4.8-10.8)
[2025-07-04 01:50] LABS: Alanine Aminotransferase 11 U/L (0-31); Albumin Level 4.5 g/dL (3.5-5.0); Alkaline Phosphatase 45 U/L (39-117); Anion Gap 13 (12-20); Aspartate Amino Transferase 21 U/L (5-31); Blood Urea Nitrogen 13 mg/dL (9-16); Calcium 9.5 mg/dL (8.4-10.2); Carbon Dioxide 22 mmol/L (22-29); Chloride 107 mmol/L (96-108); Creatinine Clr Calc Pharmacy 83.0; Estimated Glomerular Filt Rate > 60; Potassium 3.6 mmol/L (3.3-5.1); Sodium 138 mmol/L (135-145); Total Protein 7.5 g/dL (6.5-8.0)
--- NOTE | 2025-07-04 02:03 | MHC.EDTECH ---
microsoft exchange administrator done with security, belongings searched and locked in locker #1 in the pod.
[2025-07-04 02:05] LABS: Appearance Urine Clear; Glucose Urine UA Negative (Negative); PH 6.0 (5.0-9.0); Specific Gravity - Urine <= 1.005 (1.005-1.025)
[2025-07-04 02:15] LABS: Cannabinoid Screen Urine Not Detected (Not Detect)
--- NOTE | 2025-07-04 02:41 | PC.NURSE ---
Attempted to call [facility] pharmacy to obtain med rec. Tried to call two 24 hour stores and both phones rang multiple times with no answer and then disconnected.
[2025-07-04 03:23] LABS: Acetaminophen LAB < 3 mcg/mL (<30); Salicylate < 5.0 mg/dL (15-30)
--- OUTSIDE RECORDS SUMMARY | 2025-07-04 06:01 | XMS_ITS | Clinical Summary ---
Author Organization [facility] ity Address [address] [place] [address] Care Team Providers Care Oven Dumper Name Role Phone David Solis MD Primary [...] * Depression Screening (04/27/2024) Pathologist [facility] Depression Screening Abstracted Historical Provider HEALTH MAINTENANCE Final Result * HIV Screening (12/12/2021) [facility] HIV Screening Abstracted Historical Provider HEALTH MAINTENANCE Final Result * (ABNORMAL) Lipid panel (12/12/2021) Pathologist [facility] LDL/HDL Ratio 2 0 - 4 Triglycerides 35 0 - 150 mg/dL Cholesterol 217(A) 0 - 200 mg/dL HDL 94 >=40 mg/dL LDL Cholesterol 116(A) 0 - 100 mg/dL Blood Venous blood specimen / Unknown Historical Provider LAB BLOOD ORDERABLES Lena l Result from Last 3 Months or Most Recently Relevant to Health Maintenance Care Teams Oven Dumper Relationship Specialty Start Date End Date David Solis MD [address] [place] [address] [facility] - General 05/22/23
--- OUTSIDE RECORDS SUMMARY | 2025-07-04 06:01 | XMS_ITS | Encounter Summary ---
Author Organization [facility] Address [address] [place] [address] Care Team Providers Care Braille Duplicating Machine Operator Name Role Phone Sky Carranza MD Primary Care Provider Un available Coral Montenegro DO Primary Care Pro vider Unavailable Mahendra Redmond MD Primary Care Provider [phone] David Solis MD Primary Care Provider Reason for Visit * Reason Onset Date Comments Appointment-Internal Referral 02/25/2017 [place] RM Encounter Details Date Type Department Care Team Description 02/25/2017 Telephone Dermatology - [place] [address] [place] [phone] Sugar Hughes PA-C [address] [place] [phone] Appointment-Internal Referral ([facility]) Social History Tobacco Use [...] on filedocumented in this encounter Care Teams Braille Duplicating Machine Operator Relationship Specialty Start Date End Date Sky Carranza MD PCP - General Internal Medicine 02/17/172 0 Coral Montenegro DO PCP - General Internal Medicine 12/12/19 05/22/21 Mahendra Redmond MD [address] [place] [address] PCP - General Internal Medicine 05/23/21 05/21/23 David Solis MD [address] [place] [phone] PCP - General Internal Medicine 05/22/23 documented as of this encounter
--- OUTSIDE RECORDS SUMMARY | 2025-07-04 06:01 | XMS_ITS | Encounter Summary ---
Author Organization [facility] Address [address] [place] [address] Care Team Providers Care Change Management Coordinator Name Role Phone Coral Montenegro DO Primary Care Pro vider Unavailable Mahendra Redmond MD Primary Care Provider [phone] David Solis MD Primary Care Provider Encounter Details Date Type Department Care Team Description 03/14/2020 Flexo Folder Gluer Operator Report Medical Records [address] [place] [address] Armaan Sandoval PA-C Social History Tobacco Use [...] on filedocumented in this encounter Care Teams Change Management Coordinator Relationship Specialty Start Date End Date Coral Montenegro DO PCP - General Internal Medicine 12/12/19 05/22/21 Mahendra Redmond MD [address] [place] [address] [phone] PCP - General Internal Medicine 05/23/21 05/21/23 David Solis MD [address] [place] [phone] PCP - General Internal Medicine 05/22/23 documented as of this encounter
--- OUTSIDE RECORDS SUMMARY | 2025-07-04 06:01 | XMS_ITS | Clinical Summary ---
Author Organization [facility] Address [address] [place] [address] Care Team Providers Care Heat Set Operator Name Role Phone David Solis MD Primary [...] 97 04/27/2024 12:22 PM EDT Temperature 36.1 C (97 F) 04/27/2024 12:22 PM EDT Respiratory Rate 14 [...] Vaccine (2022-2 4 season) 2024 07/12/2021, 06/19/2021 BMI CHECK/ADVISE 11/09/2024 05/29/2023, , 10/20/2017, Additional history exists DEPRESSION SCREENING/FOLLOWUP 11/09/2024, 05/29/2023, 05/29/2023, Additional history exists SOCIAL NEEDS SCREENING 11/09/2024 INFLUENZA (#1) 2025 CHOLESTEROL SCREENING 12/12/2026 12/12/2021 , 12/12/2021, 02/17/2017 DTAP/TDAP/TD (2 - Td or Tdap) 02/17/2027 02/17/2017 PNEUMOCOCCAL VACCINE FOR HIG H RISK PATIENTS (#1) 2046 Care Teams Heat Set Operator Relationship Specialty Start Date End Date David Solis MD [address] [place] [phone] PCP - General Internal Medicine 05/22/23
--- OUTSIDE RECORDS SUMMARY | 2025-07-04 06:01 | XMS_ITS | Encounter Summary ---
Author Organization [facility] Address [address] [place] [address] Care Team Providers Care Tailing Hand Name Role Phone Coral Montenegro DO Primary Care Pro vider Unavailable Mahendra Redmond MD Primary Care Provider [phone] David Solis MD Primary Care Provider Encounter Details Date Type Department Care Team Description 12/22/2019 Transfer Records Medical Records [address] [place] [address] Social History Tobacco Use Types Packs/Day Years [...] on filedocumented in this encounter Care Teams Tailing Hand Relationship Specialty Start Date End Date Coral Montenegro DO PCP - General Internal Medicine 12/12/19 05/22/21 Mahendra Redmond MD [address] [place] [phone] PCP - General Internal Medicine 05/23/21 05/21/23 David Solis MD [address] [place] [phone] PCP - General Internal Medicine 05/22/23 documented as of this encounter
--- OUTSIDE RECORDS SUMMARY | 2025-07-04 06:01 | XMS_ITS | Encounter Summary ---
Author Organization [facility] Address [address] [place] [address] Care Team Providers Care Chinchilla Farmer Name Role Phone Coral Montenegro DO Primary Care Pro vider Unavailable Mahendra Redmond MD Primary Care Provider [phone] David Solis MD Primary Care Provider Encounter Details Date Type Department Care Team Description 01/17/2020 Track Laying Equipment Operator Report Medical Records [address] [place] [address] Armaan Sandoval PA-C Social History Tobacco Use [...] on filedocumented in this encounter Care Teams Chinchilla Farmer Relationship Specialty Start Date End Date Coral Montenegro DO PCP - General Internal Medicine 12/12/19 05/22/21 Mahendra Redmond MD [address] [place] [address] [phone] PCP - General Internal Medicine 05/23/21 05/21/23 David Solis MD [address] [place] [phone] PCP - General Internal Medicine 05/22/23 documented as of this encounter
[2025-07-04] MEDS: Magnesium Hydrox/Alum Hydrox 30 ML ORAL.SUSP PO (06:26)
[2025-07-04] MEDS: Lidocaine HCl Viscous 2 % 15 ML SOLUTION MUCOUS MEM (06:26)
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
[2025-07-04 06:59] VITALS: BP 116/74; PULSE 84; RESP 20; TEMP 36.6; O2SAT 97
--- NOTE | 2025-07-04 09:57 | PC.NURSE ---
assumed care of patient at 0700, patient is calm and cooperative, med rec completed with patient and per diem interpreter at bedside. patient ate breakfast. medicated per JAN.
[2025-07-04 10:11] LABS: UPreg QC Valid YES
--- NOTE | 2025-07-04 12:15 | ECG_ITS ---
Test Reason : RO QTC Blood Pressure : */* mmHG Vent. Rate : 72 BPM Atrial Rate : 72 BPM P-R Int : 142 ms QRS Dur : 84 ms QT Int : 394 ms P-R-T Axes : 54 38 34 degrees QTcB Int : 431 ms Normal sinus rhythm Normal ECG When compared with ECG of 21-Apr-2024 16:12, No significant change was found Referred By: Nicole Woo Electronically Signed By: JEWEL LANDRUM
[2025-07-04 15:02] VITALS: BP 109/68; PULSE 87; RESP 18; TEMP 36.8; O2SAT 96
[2025-07-04 16:16] VITALS: BMI 27.4
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
[2025-07-04 20:00] VITALS: BP 126/79; PULSE 91; RESP 16; TEMP 36.8; O2SAT 99
[2025-07-05 07:39] VITALS: BP 119/58; PULSE 89; RESP 16; TEMP 36.7; O2SAT 96
[2025-07-05 08:47] LABS: Hemoglobin A1C 103.4998 umol/L; Total Hemoglobin (HGBA1C) 2945.6715 umol/L
[2025-07-05 09:10] LABS: Alanine Aminotransferase 10 U/L (0-31); Albumin Level 4.4 g/dL (3.5-5.0); Alkaline Phosphatase 41 U/L (39-117); Anion Gap 10 (12-20); Aspartate Amino Transferase 28 U/L (5-31); Blood Urea Nitrogen 8 mg/dL (9-16); Calcium 9.2 mg/dL (8.4-10.2); Carbon Dioxide 26 mmol/L (22-29); Chloride 105 mmol/L (96-108); Cholesterol 235 mg/dL (<200); Creatinine Clr Calc Pharmacy 84.2; Estimated Glomerular Filt Rate > 60; HDL Cholesterol 64 mg/dL (>40); Potassium 4.4 mmol/L (3.3-5.1); Sodium 137 mmol/L (135-145); Total Protein 7.3 g/dL (6.5-8.0); Triglycerides 55 mg/dL (<150)
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
[2025-07-05 09:25] LABS: Free T4 (Free Thyroxine) 0.90 ng/dL (0.71-1.85); Thyroid Stimulating Hormone 0.85 uIU/mL (0.32-4.0)
[2025-07-05 20:00] VITALS: BP 100/57; PULSE 77; RESP 16; TEMP 36.9; O2SAT 96
[2025-07-06 07:00] VITALS: BMI 27.2
[2025-07-06 07:33] VITALS: BP 84/52; PULSE 90; RESP 20; TEMP 36.9; O2SAT 96
[2025-07-06] MEDS: Milk of Magnesia 30 ML ORAL.SUSP PO (09:59)
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
[2025-07-06 19:14] VITALS: BP 103/75; PULSE 100; RESP 16; TEMP 36.9; O2SAT 96
[2025-07-07 07:05] VITALS: BP 105/60; PULSE 104; RESP 12; TEMP 36.8; O2SAT 93
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
[2025-07-07 19:22] VITALS: BP 110/79; PULSE 98; RESP 18; TEMP 36.9; O2SAT 98
[2025-07-08 07:50] VITALS: RESP 18
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
[2025-07-08 19:13] VITALS: BP 115/73; PULSE 104; RESP 16; TEMP 37.1; O2SAT 98
[2025-07-09 07:30] VITALS: BP 117/73; PULSE 95; RESP 14; TEMP 37; O2SAT 98
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
[2025-07-09 20:00] VITALS: BP 105/75; PULSE 99; RESP 16; TEMP 36.9; O2SAT 96
[2025-07-10 07:10] VITALS: BP 94/51; PULSE 96; RESP 16; TEMP 36.7; O2SAT 95
[2025-07-10 08:11] VITALS: BP 110/76
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
[2025-07-10 17:23] LABS: Vitamin D 25-OH, D2 <4 ng/mL; Vitamin D 25-OH, D3 25 ng/mL; Vitamin D 25-OH, Total 25 ng/mL (30-100)
[2025-07-10 20:00] VITALS: BP 107/73; PULSE 94; RESP 16; TEMP 36.7; O2SAT 98
[2025-07-11 07:28] VITALS: BP 82/52; PULSE 90; RESP 16; TEMP 36.2; O2SAT 96
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
[2025-07-11 20:00] VITALS: BP 117/76; PULSE 93; RESP 16; TEMP 36.1; O2SAT 97
[2025-07-12 07:10] VITALS: BP 91/52; PULSE 97; RESP 16; TEMP 37.1; O2SAT 95
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
[2025-07-12 19:15] VITALS: BP 108/66; PULSE 95; RESP 18; TEMP 36.9; O2SAT 98
[2025-07-13 08:20] VITALS: BP 92/55; PULSE 100; RESP 16; TEMP 36.7; O2SAT 96
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
== END 2025-07-13 11:06 | disposition home or self-care (01) | DRG 885 ==
LOC: HO.ED 05:58 → HO.PADLT16 14:44
PROVIDERS: Admitting Provider Nurse Practitioner Psychiatric/Mental Health; Emergency Provider Emergency Medicine; Visit Provider Psychiatry & Neurology Psychiatry
DX: F33.3 Major depressive disorder, recurrent, severe with psychotic symptoms (principal); R45.851 Suicidal ideations; F43.12 Post-traumatic stress disorder, chronic; Z91.51 Personal history of suicidal behavior; Z79.899 Other long term (current) drug therapy
CPT/HCPCS: 36415; 80053; 80061; 80143; 80179; 80307; 81001; 81025; 82306; 83036; 84439; 84443; 85025; 93005; 99285; S9485

== ENCOUNTER → 2025-07-04 12:15 | Outpatient (BNV) | payer OTHER, SELFPAY | PROVIDERS: Admitting Provider Nurse Practitioner Psychiatric/Mental Health; Emergency Provider Emergency Medicine; Visit Provider Internal Medicine | DX: Z13.6 Encounter for screening for cardiovascular disorders (principal) | CPT/HCPCS: 93010 ==

== ENCOUNTER → 2025-07-04 14:43 | Outpatient (BNV) | payer MEDICARE, MEDICAID, SELFPAY | PROVIDERS: Admitting Provider Nurse Practitioner Psychiatric/Mental Health; Emergency Provider Emergency Medicine; Visit Provider Nurse Practitioner Psychiatric/Mental Health | DX: F43.12 Post-traumatic stress disorder, chronic (principal); F33.3 Major depressive disorder, recurrent, severe with psychotic symptoms; R45.851 Suicidal ideations | CPT/HCPCS: 90792 ==

== ENCOUNTER 2025-07-19 14:07 | Outpatient (AMB) | payer MEDICARE, MEDICAID, SELFPAY ==
--- NOTE | 2025-07-19 14:08 | A.OFFPC_ITS ---
Vital Signs 07/19/25 14:10 Height 5 ft 4 in Weight 155 lb BMI 26.6 BP 102/66 Blood Pressure Location Lt brachial Position Sitting Pulse 98 Pulse Source Pulse Oximeter Pulse Oximetry (%) 98 Oxygen Delivery Method Room Air Intake Visit Reasons: [facility] [facility] [employer] Product Consultant Required: Yes [employer] Product Consultant Language: Mohawk Accompanied by: Self / Same As Patient Allergies lamotrigine (From Lamictal) Adverse Reaction (Verified 07/19/25 14:18) Anaphylaxis Medication List - Last Reconciled 07/19/25 by Jeri Clayton PA-C cariprazine (Vraylar) 3 mg PO DAILY cholecalciferol (vitamin D3) 25 mcg PO DAILY clonazepam 0.5 mg PO 2XD docusate sodium (Colace) 100 mg PO BID duloxetine 60 mg PO DAILY hydroxyzine HCl 25 mg PO BID PRN omeprazole 20 mg PO DAILY sennosides (Senna Lax) 8.6 mg PO BEDTIME trazodone 200 mg (2 x 100 mg) PO BEDTIME 30 days Tobacco use date assessed: 07/19/25 Dental Screening Dental Screen Date: 07/19/25 Did you have a dental visit in the last 12 months?: No Did you have a dental problem in the last 6 months where you did not have access to dental care?: No Was dental information given to patient?: No HPI [facility] 07[facility]13 [facility] HPI Details 44-year-old female with past medical his tory of depression and PTSD last seen 03/2025 coming in for hospital discharge follow up. In review of the notes, patient was seen in [facility] ED 07/04/2025 for hallucinations and psychotic features and SI. During her hospitalization Sertraline was discontinued and Vraylar was started with good improvement. She was advised to follow up with PCP and psych provider and discharged home 07/13/2025. marketing senior recruiter Kelsey [phone] was used for the duration of this visit. Presenting with hallucinations and anxiety. She reported auditory and visual hallucinations, including hearing voices and seeing a white shadow, which resulted in a prior hospitalization. The patient is experiencing heightened anxiety, particularly due to an abnormal Pap smear result. She uses clonazepam for anxiety management but finds the current dosage inadequate. She has not yet followed up with her psych provider since discharge. [facility] Medical History History of suicidal behavior (05/29/23) Alpha thalassemia trait (12/16/21) Chronic post-traumatic stress disorder (PTSD) Surgical History Hx of abdominoplasty Hx of tubal ligation Family History Mother Diabetes HTN (hypertension) Kidney failure Father High cholesterol COPD (chronic obstructive pulmonary disease) Social History Household Members: Spouse and Children Housing: House Do you presently have visiting nurse or other home services: No Alcohol intake: current Alcohol intake frequency: holidays/special occasions only Patient Tobacco Use Status: Never used Tobacco e-Cigarette/Vaping Use: Never Used Second Hand Smoke Exposure: No service: No Current occupational status: disabled Current occupation: disabled for psychiatric concerns Sexual orientation: Straight/Heterosexual Gender identity: Female Cognitive needs: No Hearing needs: No Vision needs: No Female Reproductive History Menstrual Age of Menarche: 14 Questionnaire PHQ-9 Over the last 2 weeks, how often have you been bothered by any of the following problems? 1. Little interest or pleasure in doing things: nearly every day 2. Feeling down, depressed, or hopeless: nearly every day 3. Trouble falling or staying asleep, or sleeping too much: nearly every day 4. Feeling tired or having little energy: nearly every day 5. Poor appetite or overeating: nearly every day 6. Feeling bad about yourself - or that you are a failure or have let yourself or your family down: nearly every day 7. Trouble concentrating on things, such as reading the newspaper or watching television: nearly every day 8. Moving or speaking so slowly that other people could have noticed. Or the opposite - being so fidgety or restless that you have been moving around a lot more than usual: nearly every day 9. Thoughts that you would be better off or of hurting yourself in some way: several days Total score: 25 Depression Screening Interpretation: Positive (feels sxs are well managed ) Depression Screening Follow-up: Existing condition and In treatment Depression Screening Done: Yes 89029 - PHQ-9 Billing: Yes Source: Developed by Drs. Kel Everett, Laura Betts, Randell Atkinson and colleagues, with an educational polly from [employer]. Thrive Questionnaire Date Thrive assessed: 07/19/25 I am a: Patient What is your living situation today?: I have a steady place to live Within the past 12 months, did the food you bought not last and you didn't have the money to get more?: Never true Within the past 12 months, did you worry whether your food would run out before you got money to buy more?: Sometimes True Do you have trouble paying for medicines?: No Do you have trouble getting transportation to medical appointments?: No Do you have trouble paying your heating and electricity bill?: Yes Do you have trouble taking care of your child, family member or friend?: No Do you have trouble with day-to-day activities such as bathing, preparing meals, shopping, managing finances, etc.?: Yes Are you currently unemployed and looking for a job?: No Are you interested in more education?: Yes Please select the resources that you would like help with: Utilities Currently or been in a relationship where the following occur: No concerns reported THRIVE Score: 2 AUDIT C Alcohol Use Questionnaire (AUDIT-C) 1. How often do you have a drink containing alcohol?: Monthly or less 2. How many drinks containing alcohol do you have on a typical day when you are drinking?: 3 or 4 3. How often do you have six or more drinks on one occasion?: Less than monthly Total Score: 3 CESARIO-7 AMB Questionnaire CESARIO-7 Date CESARIO - 7 assessed: 07/19/25 Feeling nervous, anxious, or on edge: 2 = More than half the days Not being able to stop or control worryin = More than half the days Worrying too much about different things: 2 = More than half the days Trouble relaxin = More than half the days Being so restless that it is hard to sit still: 2 = More than half the days Becoming easily annoyed or irritable: 3 = Nearly every day Feeling afraid as if something awful might happen: 3 = Nearly every day Total CESARIO-7 score (0-4 normal; 5-9 mild; 10-14 moderate; 15-21 severe): 16 Source: Developed by Drs. Kel Everett, Laura Betts, Randell Atkinson and colleagues, with an educational polly from [employer]. CESARIO-7 Assessment Billing CESARIO-7 Assessment Tool: CESARIO-7 Assessment 51590 Review of Systems Const Denies body aches, Denies chills, Denies fever(s), Denies headache(s) and Denies poor appetite Eyes Reports no additional complaints ENT Denies dizziness and Denies headache(s) Card Denies chest pain, Denies lightheadedness and Denies dyspnea Resp Denies dyspnea GI Reports nausea and Denies vomiting Musc Reports no additional complaints and Denies abnormal gait Skin/Breast Reports system reviewed and no additional complaints, except as documented Neuro Denies abnormal gait, Denies dizziness and Denies headache(s) Psych Reports no additional complaints Physical exam (Primary Care) Vital Signs: Last Vital Signs Pulse 98 07/19/25 14:10 BP 102/66 07/19/25 14:10 Pulse Ox 98 07/19/25 14:10 Oxygen Delivery Method Room Air 07/19/25 14:10 BMI result Body Mass Index 26.6 Tobacco/Smoking Status: Tobacco use Status Tobacco use date assessed 07/19/25 07/19/25 14:16 Patient Tobacco Use Status Never used Tobacco 07/19/25 14:16 e-Cigarette/Vaping Use Never Used 07/19/25 14:16 PHQ-9: PHQ-9 Score PHQ-9: Total score 07/19/25 14:19 Depression Screening Interpretation: Positive (feels sxs are well managed ) Depression Screening Follow-up: Existing condition and In treatment Thrive Assessment: Date of Thrive Assessment Date Thrive assessed 07/19/25 07/19/25 14:16 Currently or been in a relationship where the following occur: No concerns reported Const General: cooperative, healthy appearing, comfortable and no acute distress Orientation/consciousness: patient oriented x3 HENMT Head: Yes normocephalic Ears: hearing grossly normal bilaterally General nose exam: Normal external nose present Eyes General: appearance normal, both eyes and all related structures Conjunctivae: conjunctivae normal Neck Neck: Yes full ROM and Yes no lymphadenopathy Resp Effort & Inspection: normal respiratory effort Auscultation: clear to auscultation bilaterally, no crackles, no rales, no rhonchi and no wheezes Cardio Rate: regular rate Rhythm: regular rhythm Skin General skin exam: no rashes or lesions noted Neuro General: patient oriented x3 Gait exam (Neuro): Normal gait present Extrem General: Yes normal to inspection, Yes full ROM and No edema Psych Affect: normal affect Attitude: cooperative Insight: Good insight present (Psych) Judgement: Good judgement present (Psych) Coding Level of Care Code Est Pt Level 3 (82461) Diagnoses Suicidal ideation R45.851 MDD (major depressive disorder), recurrent, severe, with psychosis F33.3 Anxiety F41.9 Additional Codes CESARIO-7 Assessment Billing - CESARIO-7 Assessment Tool: CESARIO-7 Assessment 81594 ([id number]) PHQ-9 - 37749 - PHQ-9 Billing: Yes ([id number]) Assessment & Plan Assessment & Plan (1) Suicidal ideation: Code(s): R45.851 - Suicidal ideations Category: Medical Plan: Resolved at this time and she agrees to reach out if she has any concerns or SI. (2) MDD (major depressive disorder), recurrent, severe, with psychosis: Code(s): F33.3 - Major depressive disorder, recurrent, severe with psychotic symptoms Category: Medical Plan: The patient is on Vraylar 3 mg daily for hallucinations, with noted improvement. Monitoring and potential medication adjustments are planned. She will continue to follow up with her psych provider and I advised her to reach out to schedule a follow up CHANEL. She has also not started the Duloxetine at this time and per d/c notes she was to start on Duloxetine after discontinuation of Sertraline. I did also place a referral for counseling as well. (3) Anxiety: Onset Date: 02/24/17 Code(s): F41.9 - Anxiety disorder, unspecified Category: Medical Plan: Duloxetine is recommended for anxiety management, with clonazepam dosage review advised. Psychiatric consultation is suggested for further management. Plan I discussed with the patient the management of her hallucinations and anxiety, emphasizing the importance of medication adherence and psychiatric follow-up. I advised her to monitor her symptoms and to reach out if there are any concerns or changes. This note was constructed using voice recognition software. While every effort has been made to ensure accuracy and rn infusion, still areas may have been included sometimes these areas may affect the content or meeting of the given symptoms. Total time spent caring for the patient today was 20 minutes. This includes time spent before the visit reviewing the chart, time spent during the visit, and time spent after the visit and documentation. Patient was informed and verbally consented to the use of an ambient scribe for clinic note documentation during this visit. Orders: Referrals Counseling Referral F33.3 - Major depressive disorder, recurrent, severe with psychotic symptoms, F33.9 - Major depressive disorder, recurrent, unspecified, F43.12 - Post-traumatic stress disorder, chronic Medications: Refilled ondansetron HCl 4 mg PO Q6H PRN 30 tabs 0RF nausea and vomiting omeprazole 20 mg PO DAILY 90 caps 0RF GERD
[2025-07-19 14:10] VITALS: BP 102/66; PULSE 98; O2SAT 98; BMI 26.6
--- OUTSIDE RECORDS SUMMARY | 2025-07-19 17:20 | XMS_ITS | Clinical Summary ---
Author Organization [facility] ity Address [address] [place] [address] Care Team Providers Care Senior Analyst Market Intelligence Name Role Phone David Solis MD Primary [...] 10/08/2022 Social Influencers of Health Screening 10/08/2022 Depression Screening 11/09/2024 04/27/2024 COVID-19 Vaccine (3 - 2024-2 6 season) 2025 07/12/2021, 06/19/2021 Influenza Vaccine (#1) 2025 Cholesterol Screening (Lipid [...] Maintenance Results * Depression Screening (04/27/2024) Pathologist [facility] Depression Screening Abstracted Historical Provider HEALTH MAINTENANCE Final Result * HIV Screening (12/12/2021) Pathologist [facility] HIV Screening Abstracted Historical Provider HEALTH MAINTENANCE Final Result * (ABNORMAL) Lipid panel (12/12/2021) Pathologist [facility] LDL/HDL Ratio 2 0 - 4 Triglycerides 35 0 - 150 mg/dL Cholesterol 217(A) 0 - 200 mg/dL HDL 94 >=40 mg/dL LDL Cholesterol 116(A) 0 - 100 mg/dL Blood Venous blood specimen / Unknown Historical Provider LAB BLOOD ORDERABLES Lena l Result from Last 3 Months or Most Recently Relevant to Health Maintenance Care Teams Senior Analyst Market Intelligence Relationship Specialty Start Date End Date David Solis MD [address], [place] [phone] (work) PCP - General 05/22/23
== END 2025-07-19 15:54 | disposition home or self-care (01) ==
LOC: HO.HMCH 14:07
DX: R45.851 Suicidal ideations (principal); F33.3 Major depressive disorder, recurrent, severe with psychotic symptoms; F41.9 Anxiety disorder, unspecified

== ENCOUNTER → 2025-07-19 14:07 | Outpatient (BNVA) | payer MEDICARE, MEDICAID, SELFPAY | DX: F33.3 Major depressive disorder, recurrent, severe with psychotic symptoms (principal); F43.10 Post-traumatic stress disorder, unspecified; F41.9 Anxiety disorder, unspecified; R45.851 Suicidal ideations | CPT/HCPCS: 96127; 99212 ==

== ENCOUNTER 2025-09-18 10:22 | Outpatient (AMB) | payer MEDICARE, MEDICAID, SELFPAY ==
--- NOTE | 2025-09-18 10:22 | A.OFFVIS_ITS ---
Vital Signs 09/18/25 10:26 Height 5 ft 4 in Weight 155 lb BMI 26.6 BP 98/62 Intake Visit Reasons: Colposcopy Analytics Senior Manager Required: Yes Analytics Senior Manager Language: Vice President Digital Strategist Services: Analytics Senior Manager Present (in person) Analytics Senior Manager Name: Karena COUGHLIN Information Interpreted: non-clinical & clinical Cloth Presser: Cloth Presser Present (Karena COUGHLIN) Accompanied by: Spouse Allergies lamotrigine (From Lamictal) Adverse Reaction (Verified 07/19/25 14:18) Anaphylaxis Is last menstrual period known: Yes HPI Comments Details: The patient is presenting for abnormal Pap smear showing the following: ABNORMAL PAP TEST. Satisfactory for evaluation, with mildly dysplastic squamous cells / HPV cytopathic change (ABELARDO 1; low grade squamous intraepithelial lesion). HPV High Risk: Negative HPV Genotyping 16: Negative HPV Genotyping 18: Negative [facility] Medical History History of suicidal behavior (05/29/23) Alpha thalassemia trait (12/16/21) Chronic post-traumatic stress disorder (PTSD) Surgical History Hx of abdominoplasty Hx of tubal ligation Family History Mother Diabetes HTN (hypertension) Kidney failure Father High cholesterol COPD (chronic obstructive pulmonary disease) Social History Household Members: Spouse and Children Housing: House Do you presently have visiting nurse or other home services: No Alcohol intake: current Alcohol intake frequency: holidays/special occasions only Patient Tobacco Use Status: Never used Tobacco e-Cigarette/Vaping Use: Never Used Second Hand Smoke Exposure: No service: No Current occupational status: disabled Current occupation: disabled for psychiatric concerns Sexual orientation: Straight/Heterosexual Gender identity: Female Cognitive needs: No Hearing needs: No Vision needs: No Female Reproductive History Menstrual Age of Menarche: 14 Review of Systems Const All systems reviewed & are unremarkable except as noted in HPI and below Reports as per HPI and Reports no additional complaints GI Reports no additional complaints Reports no additional complaints Physical Exam Vital Signs: Last Vital Signs BP 98/62 09/18/25 10:26 BMI result Body Mass Index 26.6 Office Procedures Colposcopy Colposcopy: Pre-Procedure Counseling: Before beginning the procedure, I conducted comprehensive counseling with the patient. We thoroughly discussed the procedure itself, including its details, alternatives, and all associated risks. This included but not limited to the following complications such as bleeding, infection, and injury to the vagina, bladder, and vessels, as well as the potential need for transfusion with all its associated risks. Subsequently, the patient sign the consent. Pap smear result: LSIL. Urine test in office = Negative Procedure: During the procedure, the following steps were performed: A speculum was inserted, and acetic acid was applied. Colposcopy was conducted, allowing visualization of the transformation zone. Acetowhite lesions were identified at the 5+ 7+ 11+ 12+ 1 o'clock position. Cervical biopsies were obtained from the 5+ 7+ 11+ 12+ 1 o'clock position, followed by an endocervical curettage (ECC). Vaginoscopy of the upper vagina revealed no evidence of aceto-white lesions. Hemostasis was achieved using Monsel solution, and the patient tolerated the procedure well. Post-Procedure Instructions: The patient was advised to promptly contact the office or the after hours answering service or go to the emergency room if experiencing a temperature exceeding 100.4?F, abdominal pain, nausea/vomiting, or bleeding. Additionally, the patient was instructed to abstain from vaginal intercourse and bathtub use. The patient confirmed understanding of these instructions. Discharge Instructions: The patient was instructed to schedule a follow-up appointment in 2 weeks for further evaluation and management. Please note that this note was generated using a voice recognition program, and errors may have occurred during ground operations supervisor. 67109-Blkykjhxp of cervix including upper vagina with biopsy and ECC Procedure code (CPT) selection complete Results AMB Test Urine AMB Test Urine Negative Last Edit by Karena Maria CMA on 10:40 Results Reviewed Results Reviewed: Laboratory Last Values Tst Clinic Negative 09/18/25 10:40 Assessment & Plan Assessment & Plan (1) LGSIL on Pap smear of cervix: Code(s): R87.612 - Low grade squamous intraepithelial lesion on cytologic smear of cervix (LGSIL) Category: Medical Plan: Discussed with the patient the result of her abnormal pap, its significance, risk of progression, persistence, and regression. the false positive/negative rate of a Pap smear as a screening test in detecting cervical cancer and the indication for a diagnostic test -colposcopy, biopsy, endocervical curettage. The patient verbalized understanding and agreed with the plan, all questions answered. Colposcopy, biopsy /ECC done, see procedure note Orders: Orders AMB Colposcopy Today R87.612 - Low grade squamous intraepithelial lesion on cytologic smear of cervix (LGSIL) AMB HCG Urine Test Today Z32.02 - Encounter for test, result negative Coding Level of Care Code Procedure Only Diagnoses LGSIL on Pap smear of cervix R87.612 CPT Codes Colposcopy - CPT: 47638-Wyqihhblj of cervix including upper vagina with biopsy and ECC ([id number])
[2025-09-18 10:26] VITALS: BP 98/62; BMI 26.6
--- OUTSIDE RECORDS SUMMARY | 2025-09-18 12:10 | XMS_ITS | Clinical Summary ---
Author Organization [facility] ity Address [address] [place] [address] Care Team Providers Care Air Boatswain Name Role Phone David Solis MD Primary [...] (10/28/2024): Possible Anxiety 02/24/2017 Depression 02/17/2017 Immunizations Immunization Administration Dates Next Due PPD Test 02/17/2017 [...] Cervical Cancer Screening: P ap Smear 2002 HPV Vaccines (1 - 3-dose SCD M series) 2008 Hepatitis C Screening 10/08/2022 Social Influencers of Health Screening 10/08/2022 Depression Screening 11/09/2024 04/27/2024 COVID-19 Vaccine (3 - 2024-2 6 season) 2025 07/12/2021, 06/19/2021 Influenza Vaccine (#1) 2025 Cholesterol Screening (Lipid Panel) 12/12/2026 12/12/2021 DTaP,Tdap,and Td Vaccines (2 - Td or Tdap) 02/17/2027 02/17/2017 RSV Immunization Adult Patients (1 - 1-dose 75+ series) 2056 HIV Screening Completed 12/12/2021 HIB Vaccines Aged [...] Maintenance Results * Depression Screening (04/27/2024) Pathologist [facility] Depression Screening Abstracted Historical Provider HEALTH MAINTENANCE Final Result * HIV Screening (12/12/2021) [facility] HIV Screening Abstracted [facility] Provider HEALTH MAINTENANCE Final Result * (ABNORMAL) Lipid panel (12/12/2021) Pathologist [facility] LDL/HDL Ratio 2 0 - 4 Triglycerides 35 0 - 150 mg/dL Cholesterol 217(A) 0 - 200 mg/dL HDL 94 >=40 mg/dL LDL Cholesterol 116(A) 0 - 100 mg/dL Blood Venous blood specimen / Unknown Historical Provider LAB BLOOD ORDERABLES Lena l Result from Last 3 Months or Most Recently Relevant to Health Maintenance Care Teams Air Boatswain Relationship Specialty Start Date End Date David Solis MD [address] [place] [address] PCP - General 05/22/23
--- OUTSIDE RECORDS SUMMARY | 2025-09-18 12:10 | XMS_ITS | Encounter Summary ---
Author Organization [facility] Address [address] [place] [address] Care Team Providers Care Educational Psychology Professor Name Role Phone Coral Montenegro DO Primary Care Pro vider Unavailable Mahendra Redmond MD Primary Care Provider [phone] David Solis MD Primary Care Provider Encounter Details Date Type Department Care Team Description 01/19/2020 Parking Regulation Enforcement Officer Report Medical Records [address] [place] [id number] [address] Nicolás Social History Tobacco Use Types [...] on filedocumented in this encounter Care Teams Educational Psychology Professor Relationship Specialty Start Date End Date Coral Montenegro DO PCP - General Internal Medicine 12/12/19 05/22/21 Mahendra Redmond MD [address] [place] [address] [phone] PCP - General Internal Medicine 05/23/21 05/21/23 David Solis MD [address] [place] [phone] PCP - General Internal Medicine 05/22/23 documented as of this encounter
--- OUTSIDE RECORDS SUMMARY | 2025-09-18 12:10 | XMS_ITS | Clinical Summary ---
Author Organization [facility] Address [address] [place] [address] Care Team Providers Care Radiologic Therapist Name Role Phone David Solis MD Primary [...] HEALTH EXAM 40-64 2021 02/17/2017, MAMMOGRAM 2021 BMI CHECK/ADVISE 11/09/2024 05/29/2023, , 10/20/2017, Additional history exists DEPRESSION SCREENING/FOLLOWUP 11/09/2024, 05/29/2023, 05/29/2023, Additional history exists SOCIAL NEEDS SCREENING 11/09/2024 Covid-19 Vaccine (3 - 2022-2 4 season) 2025 07/12/2021, 06/19/2021 INFLUENZA (#1) 2025 CHOLESTEROL SCREENING 12/12/2026 12/12/2021 , 12/12/2021, 02/17/2017 DTAP/TDAP/TD (2 - Td or Tdap) 02/17/2027 02/17/2017 PNEUMOCOCCAL VACCINE FOR HIG H RISK PATIENTS (#1) 2046 Care Teams Radiologic Therapist Relationship Specialty Start Date End Date David Solis MD [address] [place] [phone] PCP - General Internal Medicine 05/22/23
--- OUTSIDE RECORDS SUMMARY | 2025-09-18 12:10 | XMS_ITS | Encounter Summary ---
Author Organization [facility] Address [address] [place] [address] Care Team Providers Care Soa Architect Name Role Phone Sky Carranza MD Primary Care Provider Un available Coral Montenegro DO Primary Care Pro vider Unavailable Mahendra Redmond MD Primary Care Provider David Solis MD Primary Care Provider Encounter Details Date Type Department Care Team Description 02/19/2017 Release of Information Medical Records [address] [place] [id number] Abstract, Provider Social History Tobacco Use Types [...] on filedocumented in this encounter Care Teams Soa Architect Relationship Specialty Start Date End Date Sky Carranza MD PCP - General Internal Medicine 02/17/17 0 Coral Montenegro DO PCP - General Internal Medicine 12/12/19 05/22/21 Mahendra Redmond MD [address] [place] [address] [phone] PCP - General Internal Medicine 05/23/21 05/21/23 David Solis MD [address] [place] [address] [place] [address] PCP - General Internal Medicine 05/22/23 documented as of this encounter
--- OUTSIDE RECORDS SUMMARY | 2025-09-18 12:10 | XMS_ITS | Encounter Summary ---
Author Organization [facility] Address [address] [place] [address] Care Team Providers Care Buckle Strap Drum Operator Name Role Phone Coral Montenegro DO Primary Care Pro vider Unavailable Mahendra Redmond MD Primary Care Provider [phone] David Solis MD Primary Care Provider Encounter Details Date Type Department Care Team Description 12/22/2019 Transfer Records Medical Records [address] [place] [address] Social History Tobacco Use Types Packs/Day Years [...] on filedocumented in this encounter Care Teams Buckle Strap Drum Operator Relationship Specialty Start Date End Date Coral Montenegro DO PCP - General Internal Medicine 12/12/19 05/22/21 Mahendra Redmond MD [address] [place] [phone] PCP - General Internal Medicine 05/23/21 05/21/23 David Solis MD [address] [place] [phone] PCP - General Internal Medicine 05/22/23 documented as of this encounter
== END 2025-09-18 11:06 | disposition home or self-care (01) ==
LOC: HO.HWS 10:23
PROVIDERS: Visit Provider Obstetrics & Gynecology
DX: R87.612 Low grade squamous intraepithelial lesion on cytologic smear of cervix (LGSIL) (principal); Z32.02 Encounter for pregnancy test, result negative
CPT/HCPCS: 57454

== ENCOUNTER 2025-09-18 10:22 | Outpatient (REF) | payer MEDICARE, MEDICAID, SELFPAY | END 2025-09-18 10:23 | disposition home or self-care (01) | LOC: HO.LNP 10:22 | PROVIDERS: Visit Provider Obstetrics & Gynecology | DX: R87.612 Low grade squamous intraepithelial lesion on cytologic smear of cervix (LGSIL) (principal); Z32.02 Encounter for pregnancy test, result negative | CPT/HCPCS: 57454; 81025; 88305; 88341; 88342 ==

== ENCOUNTER 2025-10-11 14:28 | Outpatient (AMB) | payer MEDICARE, MEDICAID, SELFPAY ==
--- NOTE | 2025-10-11 14:30 | A.OFFVIS_ITS ---
Vital Signs 10/11/25 14:34 Height 5 ft 4 in Weight 155 lb BMI 26.6 BP 110/64 Intake Visit Reasons: colpo results Rubber Goods Assembler Required: Yes Rubber Goods Assembler Language: Proposal Manager Writer Services: Rubber Goods Assembler Present (in person) Rubber Goods Assembler Name: Karena COUGHLIN Information Interpreted: non-clinical & clinical Hot Roll Inspector: Hot Roll Inspector Present Accompanied by: Spouse Allergies lamotrigine (From Lamictal) Adverse Reaction (Verified 10/11/25 14:35) Anaphylaxis Is last menstrual period known: Yes Last menstrual period: 10/06/25 Post menopausal: No Patient : No Do you need a note to return to daycare/school/sports/work: Yes (for surgery on thursday) HPI Comments Details: Presenting post colpo for follow-up. The patient is doing well with no complaints. The pathology showed the following: A. Endocervix, curettage: Scant superficial strips of endocervical epithelium within normal limits. B. Cervix, 1 o'clock, biopsy: Mildly inflamed cervical transformation zone mucosa reactive changes. C. Cervix, 5 o'clock, biopsy: - High-grade squamous intraepithelial lesion (ABELARDO 2). - Endocervical epithelium within normal limits. D. Cervix, 7 o'clock, biopsy: Inflamed cervical transformation zone mucosa reactive changes. E. Cervix, 11 o'clock, biopsy: - Low-grade squamous intraepithelial lesion (ABELARDO 1). - Endocervical epithelium within normal limits. F. Cervix, 12 o'clock, biopsy: Inflamed cervical transformation zone mucosa reactive changes. COMMENT: The findings are concordant with the patient's recent Pap/cytology specimen ([id number]; LSIL with negative HPV) - slide reviewed [facility] Medical History History of suicidal behavior (05/29/23) Alpha thalassemia trait (12/16/21) Chronic post-traumatic stress disorder (PTSD) Surgical History Hx of abdominoplasty Hx of tubal ligation Family History Mother Diabetes HTN (hypertension) Kidney failure Father High cholesterol COPD (chronic obstructive pulmonary disease) Social History Household Members: Spouse and Children Housing: House Do you presently have visiting nurse or other home services: No Alcohol intake: current Alcohol intake frequency: holidays/special occasions only Patient Tobacco Use Status: Never used Tobacco e-Cigarette/Vaping Use: Never Used Second Hand Smoke Exposure: No service: No Current occupational status: disabled Current occupation: disabled for psychiatric concerns Sexual orientation: Straight/Heterosexual Gender identity: Female Cognitive needs: No Hearing needs: No Vision needs: No Female Reproductive History Menstrual Age of Menarche: 14 Date of last menstrual period: 10/06/25 control method: permanent sterilization Total pregnancies: 2 Full term: 2 Review of Systems Card Reports as per HPI and Reports no additional complaints Resp Reports as per HPI and Reports no additional complaints GI Reports as per HPI and Reports no additional complaints Reports as per HPI Physical Exam Vital Signs: Last Vital Signs BP 110/64 10/11/25 14:34 BMI result Body Mass Index 26.6 Const General: cooperative, healthy appearing and comfortable Resp Effort & Inspection: normal respiratory effort Auscultation: clear to auscultation bilaterally Percussion: percussion normal Cardio Palpation: normal PMI Rate: regular rate Rhythm: regular rhythm Heart sounds: no murmurs and no rubs Peripheral pulses: Peripheral pulses 2+ throughout GI Inspection: Yes normal to inspection Palpation (GI): Soft to palpation, nontender, no guarding, not rigid and No hepatosplenomegaly present Percussion: Yes normal to percussion Auscultation: normal bowel sounds Rectal Exam - Female: deferred Assessment & Plan Assessment & Plan (1) ABELARDO II (cervical intraepithelial neoplasia II): Code(s): N87.1 - Moderate cervical dysplasia Category: Medical Plan: Discussed with the patient the pathology results of the colposcopy biopsies & endocervical curettage ( moderate dysplasia-ABELARDO 2). Discussed with the patient the sensitivity specificity, positive and negative predictive value in detecting cervical cancer in addition discussed the regression, persistence and progression rates. Addition discussed with the patient the risk of progression to cancer and impact of excision procedure on her future . Per ASCCP guidelines, 2 options of management were discussed with the patient including either observation with HPV based screening and colposcopy biopsy at 6 months and 12 months versus a diagnostic excisional procedures, which is the preferred method of management. The patient is concerned more about the progression of ABELARDO 2 to cancer than the excisional procedure impact on her future and she decided to proceed with a LEEP, possible cone with post cone ECC, all the pros and cons and risks and benefits of the procedure were discussed with the patient, the patient verbalized understanding and agreed with the plan Will proceed with LEEP cone was post cone ECC. Discussed with the patient the procedure, its benefits and risks including bleeding, infection, possible need for blood transfusion with all its risk ( HIV, syphilis, Hepatitis, anaphylaxis shock, others..), injury to bladder, rectum, possible re-excision for positive margins, potential need for hysterectomy, possible future negative impact on fertility including ( cervical stenosis, incompetence , increase risk for c section 2ndary to cervical scarring and failure of dilatation), possible positive margin necessitating re-excision. Also discussed the patient options of anesthesia either paracervical block versus IV sedation/MAC, prefers to proceed with IV sedation/MAC. All questions answered, the patient verbalized understanding and signed the consent. Instructions given the patient to not to take any medication the morning of the procedure and to discontinue non prescribed Ozempic that she has taking 1 week prior to procedure. Coding Level of Care Code Est Pt Level 3 (39409) Diagnoses ABELARDO II (cervical intraepithelial neoplasia II) N87.1
[2025-10-11 14:34] VITALS: BP 110/64; BMI 26.6
== END 2025-10-11 14:54 | disposition home or self-care (01) ==
LOC: HO.HWS 14:29
PROVIDERS: Visit Provider Obstetrics & Gynecology
DX: N87.1 Moderate cervical dysplasia (principal)
CPT/HCPCS: 99213

== ENCOUNTER → 2025-10-11 14:28 | Outpatient (BNVA) | payer MEDICARE, MEDICAID, SELFPAY | PROVIDERS: Visit Provider Obstetrics & Gynecology | DX: N87.1 Moderate cervical dysplasia (principal); Z79.85 Long-term (current) use of injectable non-insulin antidiabetic drugs | CPT/HCPCS: 99212 ==

== ENCOUNTER 2025-10-13 09:55 | Day surgery (SDC) | payer MEDICARE, MEDICAID, SELFPAY ==
--- NOTE | 2025-10-12 11:58 | HO.ANESPROP2 ---
Documented by User: Nelsy Leonardo NP 10/12/25 11:58 HPI - Anesthesia Eval Consult details Narrative: 45yo F for LEEP,poss loop electric excision,poss loop electrical,cone and post endocervical curettage PMFSH Active Problems Active Problems: All Active Problems ABELARDO II (cervical intraepithelial neoplasia II) (Acute) LGSIL on Pap smear of cervix (Acute) Panic disorder (Acute 05/29/23) Anxiety (Acute 02/24/17) MDD (major depressive disorder), recurrent, severe, with psychosis (Acute) Well woman exam (Acute) Facial numbness (Acute) Vitamin D deficiency (Acute) Hypercholesteremia (Acute) Annual physical exam (Acute) Fatty liver (Acute) Constipation (Acute) Overweight (BMI 25.0-29.9) (Acute) Major depressive disorder, recurrent episode (Acute) Chronic post-traumatic stress disorder (PTSD) (Acute) Past Medical History Medical History History of suicidal behavior (05/29/23) Alpha thalassemia trait (12/16/21) Chronic post-traumatic stress disorder (PTSD) Family History Family History Mother Diabetes HTN (hypertension) Kidney failure Father High cholesterol COPD (chronic obstructive pulmonary disease) Surgical History Surgical History Hx of abdominoplasty Hx of tubal ligation Social History Social History Household Members: Spouse and Children Housing: House Do you presently have visiting nurse or other home services: No Alcohol intake: current Alcohol intake frequency: holidays/special occasions only Patient Tobacco Use Status: Never used Tobacco e-Cigarette/Vaping Use: Never Used Second Hand Smoke Exposure: No Use of substances other than those prescribed or required for medical reasons: No Advance Directives: No Advance Directives Information Provided: Yes service: No Current occupational status: disabled Current occupation: disabled for psychiatric concerns Sexual orientation: Straight/Heterosexual Gender identity: Female Cognitive needs: No Hearing needs: No Vision needs: No Meds Allergies Allergy/AdvReac Type Severity Reaction Status Date / Time lamotrigine (From Lamictal) AdvReac Anaphylaxis Verified 10/13/25 11:14 Home Medications ?Medication ?Instructions ?Recorded ?Confirmed ?Last Taken ?Type clonazepam 0.5 mg tablet 0.5 mg PO 2XD 12/08/24 10/13/25 Unknown History Assessment and Plan Assessment Anesthesia Assessment: Chart Reviewed Documented by User: Chintan Matthew MD 10/13/25 12:30 PMFSH Past Medical History Medical History History of suicidal behavior (05/29/23) Alpha thalassemia trait (12/16/21) Chronic post-traumatic stress disorder (PTSD) Family History Family History Mother Diabetes HTN (hypertension) Kidney failure Father High cholesterol COPD (chronic obstructive pulmonary disease) Family history of problems with anesthesia: No Surgical History Surgical History Hx of abdominoplasty Hx of tubal ligation History of Problems with Anesthesia: No Social History Social History Household Members: Spouse and Children Housing: House Do you presently have visiting nurse or other home services: No Alcohol intake: current Alcohol intake frequency: holidays/special occasions only Patient Tobacco Use Status: Never used Tobacco e-Cigarette/Vaping Use: Never Used Second Hand Smoke Exposure: No Use of substances other than those prescribed or required for medical reasons: No Advance Directives: No Advance Directives Information Provided: Yes service: No Current occupational status: disabled Current occupation: disabled for psychiatric concerns Sexual orientation: Straight/Heterosexual Gender identity: Female Cognitive needs: No Hearing needs: No Vision needs: No Meds Allergies Allergy/AdvReac Type Severity Reaction Status Date / Time lamotrigine (From Lamictal) AdvReac Anaphylaxis Verified 10/13/25 11:14 Home Medications ?Medication ?Instructions ?Recorded ?Confirmed ?Last Taken ?Type clonazepam 0.5 mg tablet 0.5 mg PO 2XD 12/08/24 10/13/25 Unknown History Exam Exam Date and Time: 10/13/25 Airway Mallampati Class: II TM Dist: >3cm Neck ROM: Full Heart: rrr Lungs: ctab vesicular Assessment and Plan Assessment Anesthesia Assessment: Anesthesia Plan Discussed Final Anesthetic Review Family History of Problems with Anesthesia: No History of Problems with Anesthesia: No NPO: Yes ASA Class: II Final Preanesthetic Review: No Changes in Pt Med Stat, Meds/Allgs Chart Reviewed, Consent Obtained/Reviewed and Anes Risks/Benef Reviewed Patient Risk: Low Procedure Risk: Low Anesthetic Plan Anesthetic Plan: GA Disposition: Standard PACU
--- OUTSIDE RECORDS SUMMARY | 2025-10-12 13:29 | XMS_ITS | Encounter Summary ---
Author Organization [facility] Prior to 09/09/2024 Address [address] [place] [address] Care Team Providers Care Center Specialists Name Role Phone Coral Montenegro DO Primary Care Pro vider Unavailable Mahendra Redmond MD Primary Care Provider [phone] David Solis MD Primary Care Provider Encounter Details Date Type Department Care Team Description 01/19/2020 Tax Intern Report Medical Records [address] [place] [phone] Rehab., Nicolás Social History Tobacco Use Types [...] on filedocumented in this encounter Care Teams Center Specialists Relationship Specialty Start Date End Date Coral Montenegro DO PCP - General Internal Medicine 12/12/19 05/22/21 Mahendra Redmond MD [address] [place] [phone] PCP - General Internal Medicine 05/23/21 05/21/23 David Solis MD [address] [place] [phone] PCP - General Internal Medicine 05/22/23 documented as of this encounter
--- OUTSIDE RECORDS SUMMARY | 2025-10-12 13:29 | XMS_ITS | Encounter Summary ---
Author Organization [facility] Prior to 09/09/2024 Address [address] [place] [address] Care Team Providers Care Paint Line Operator Name Role Phone Coral Montenegro DO Primary Care Pro vider Unavailable Mahendra Redmond MD Primary Care Provider [phone] David Solis MD Primary Care Provider Encounter Details Date Type Department Care Team Description 01/17/2020 Intern Report Medical Records [address] [place] [phone] Armaan Sandoval PA-C Social History Tobacco Use [...] on filedocumented in this encounter Care Teams Paint Line Operator Relationship Specialty Start Date End Date Coral Montenegro DO PCP - General Internal Medicine 12/12/19 05/22/21 Mahendra Redmond MD [address] [place] [phone] PCP - General Internal Medicine 05/23/21 05/21/23 David Solis MD [address] [place] [phone] PCP - General Internal Medicine 05/22/23 documented as of this encounter
--- OUTSIDE RECORDS SUMMARY | 2025-10-12 13:29 | XMS_ITS | Encounter Summary ---
Author Organization [facility] Prior to 09/09/2024 Address [address] [place] [address] Care Team Providers Care Glove Tagger Name Role Phone Coral Montenegro DO Primary Care Pro vider Unavailable Mahendra Redmond MD Primary Care Provider David Solis MD Primary Care Provider Encounter Details Date Type Department Care Team Description 03/14/2020 Creative Resource Manager Report Medical Records [address] [place] [phone] Armaan Sandoval PA-C Social History Tobacco Use [...] on filedocumented in this encounter Care Teams Glove Tagger Relationship Specialty Start Date End Date Coral Montenegro DO PCP - General Internal Medicine 12/12/19 05/22/21 Mahendra Redmond MD [address] [place] [phone] PCP - General Internal Medicine 05/23/21 05/21/23 David Solis MD [address] [place] [phone] PCP - General Internal Medicine 05/22/23 documented as of this encounter
--- OUTSIDE RECORDS SUMMARY | 2025-10-12 13:29 | XMS_ITS | Clinical Summary ---
Author Organization [facility] it[facility] Address [address] [place] [address] Care Team Providers Care Granulating Blender Name Role Phone David Solis MD Primary [...] Maintenance Results * Depression Screening (04/27/2024) Pathologist [facility] Depression Screening Abstracted Historical Provider HEALTH MAINTENANCE Final Result * HIV Screening (12/12/2021) [facility] HIV Screening Abstracted [facility] Provider HEALTH MAINTENANCE Final Result * (ABNORMAL) Lipid panel (12/12/2021) Pathologist [facility] LDL/HDL Ratio 2 0 - 4 Triglycerides 35 0 - 150 mg/dL Cholesterol 217(A) 0 - 200 mg/dL HDL 94 >=40 mg/dL LDL Cholesterol 116(A) 0 - 100 mg/dL Blood Venous blood specimen / Unknown Historical Provider LAB BLOOD ORDERABLES Lena l Result from Last 3 Months or Most Recently Relevant to Health Maintenance Care Teams Granulating Blender Relationship Specialty Start Date End Date David Solis MD [address] [place] [address] PCP - General 05/22/23
--- OUTSIDE RECORDS SUMMARY | 2025-10-12 13:29 | XMS_ITS | Encounter Summary ---
Author Organization [facility] Prior to 09/09/2024 Address [address] [place] [address] Care Team Providers Care Box Toe Maker Name Role Phone Coral Montenegro DO Primary Care Pro vider Unavailable Mahendra Redmond MD Primary Care Provider [phone] David Solis MD Primary Care Provider Encounter Details Date Type Department Care Team Description 12/22/2019 Transfer Records Medical Records [address] [place] [address] Social History Tobacco Use Types Packs/Day Years [...] on filedocumented in this encounter Care Teams Box Toe Maker Relationship Specialty Start Date End Date Coral Montenegro DO PCP - General Internal Medicine 12/12/19 05/22/21 Mahendra Redmond MD [address] [place] [address] [phone] PCP - General Internal Medicine 05/23/21 05/21/23 David Solis MD [address] [place] [phone] PCP - General Internal Medicine 05/22/23 documented as of this encounter
[2025-10-13] VITALS (20 sets, daily range): BP systolic 78–107; BP diastolic 42–71; PULSE 69–103; RESP 9–18; TEMP 36.1–36.5; O2SAT 92–100; BMI 26.7
[2025-10-13 11:13] LABS: UPreg QC Valid YES
[2025-10-13] MEDS: Lactated Ringers 1,000 ML 100 ML IVCONT (11:26)
--- NOTE | 2025-10-13 11:54 | MHC.SHP ---
Pre-Procedural Eval Section A - 24 Hr Update-Section A only Date of Service: 10/13/25 The patient is an INPATIENT: No Changes since office visit: No Cold of Flu in the past 2 weeks, No New Medical Problems, No Changes in Medication and No Patient answered all questions The patient has been examined within 24 hours of the surgical procedure. The History & Physical has been completed within 30 days and I have reviewed it.: Yes Section B - Complete if H&P > 30 days Chief Complaint: Moderate cervical dysplasia Allergies: Allergies Allergy/AdvReac Type Severity Reaction Status Date / Time lamotrigine (From Lamictal) AdvReac Anaphylaxis Verified 10/13/25 11:14 Plan Diagnosis/Plan: Unchanged I have reviewed the history and physical and performed a pertinent physical examination on my patient. No changes have occurred unless specified. Time Spent With Patient Time: Total time managing care of this patient today ____ minutes.
--- NOTE | 2025-10-13 12:37 | P.OP_ITS ---
Operative Note Operative Note Date of Service: 10/13/25 Narrative: Pre op diagnosis: ABELARDO 2 Operation: Colposcopy, Loop electrical excision procedure cone, endocervical excision, post cone ECC Postop diagnosis: the same Quantitative blood loss: 50 cc Surgeon: Gato Muniz MD, FACOG Auto Accessories Installer: None Pathology: Cervical cone, endo cervical excision, post cone endo cervical curettage Complications: none Anesthesia: GLMA and Para cervical block Procedure: The patient was put in a dorsal lithotomy position, scrubbed and draped in the usual sterile fashion. A speculum was inserted inside the patient's vagina. The cervix is assessed using the colposcope with acetic acid , the lesions were seen, and at least 1 cm of the squamocolumnar junction was observed. 20 x 5 mm size loop was selected based upon the diameter of the lesion. Lugol solution was used to outline the lesions and area of the transformation zone order to be removed 10 cc of xylocaine with epinephrine were injected submucosally into the surface of the cervix (ectocervix) at the 3, 6, 9, and 12 o'clock positions. The electrosurgical generator is set at 40 gutierrez on blend 1. The loop is carefully passed simultaneously around and under the transformation zone in order to ensure excising it making sure the lesion is at least 5 mm far from the specimen margins of the anterior cervical lip followed by the posterior cervical lip, . The loop was allowed to glide through the cervix from one side to the other, allowing the cutting current to divide the tissue. Additional tissue was excised from the endocervical area with a smaller-diameter loop , endo cervical excision was performed An endo cervical curettage is performed following completion of excision, and hemostasis is obtained with a Ball electrode or regular tip cautery. At the end, Monsel's solution was applied to the cone bed. The patient tolerated the procedure well and, all instruments were taken out of the patient vaginal cavity, and the patient was transferred to the PACU in stable condition.
--- NOTE | 2025-10-13 12:37 | P.BOP_ITS ---
Brief Operative Note Date of Service: 10/13/25 Pre-op diagnosis: ABELARDO 2 Post-op diagnosis: same Procedure: LEEP CONE with post CONE ECC Surgeon: Gato Muniz MD Anesthesia: GLMA and other (Paracervical block) Was an E Commerce Web Developer used for this Procedure?: No Estimated blood loss (mL): 0 Pathology: other (Anterior cervical lip, posterior cervical lip, endocervix, Post cone ECC) Condition: stable Disposition: other (Home)
== END 2025-10-13 14:45 | disposition home or self-care (01) ==
PROVIDERS: Visit Provider Obstetrics & Gynecology
PROC: 0UBC7ZZ Excision of Cervix, Via Natural or Artificial Opening (ICD-10-PCS; CPT 57522; principal; 2025-10-13 12:50)
DX: N87.1 Moderate cervical dysplasia (principal); D56.3 Thalassemia minor; F43.10 Post-traumatic stress disorder, unspecified; Z91.51 Personal history of suicidal behavior; Z88.8 Allergy status to other drugs, medicaments and biological substances; Z98.890 Other specified postprocedural states
CPT/HCPCS: 57461; 81025; 88305; 88307; 88341; 88342; J0131; J1100; J1885; J2003; J2004; J2371; J2405; J2704; J2765; J3010

== ENCOUNTER → 2025-10-13 09:55 | Outpatient (BNV) | payer MEDICARE, MEDICAID, SELFPAY | PROVIDERS: Visit Provider Obstetrics & Gynecology | DX: N87.1 Moderate cervical dysplasia (principal) | CPT/HCPCS: 57461 ==

== ENCOUNTER 2025-10-25 13:12 | Outpatient (AMB) | payer MEDICARE, MEDICAID, SELFPAY ==
--- NOTE | 2025-10-25 13:30 | MHC.OFFVIS ---
Vital Signs 10/25/25 13:31 Height 5 ft 4 in Weight 150 lb BMI 25.7 BP 116/74 Intake Visit Reasons: post op Intake Note: c/o of vaginal discharge ,greenish color [employer] Cell[employer] Machine Required: Yes [employer] Machine Language: Screen Printing Machine Operator Services: [employer] Machine Present (in person) [employer] Machine Name: Karena COUGHLIN Information Interpreted: non-clinical & clinical Sales Data Analyst: Sales Data Analyst Present (Karena COUGHLIN) Accompanied by: Spouse Allergies lamotrigine (From Lamictal) Adverse Reaction (Verified 10/25/25 13:32) Anaphylaxis Is last menstrual period known: Yes Last menstrual period: 10/06/25 HPI Comments Details: The patient is presenting for follow-up post LEEP cone. The patient has no complaints. The patient had ABELARDO 2, LEEP path revealed the following: A. Posterior cervical lip, LEEP: Benign cervical squamous mucosa and endometrial glands; negative for dysplasia and carcinoma. B. Anterior cervical lip, LEEP: Benign cervical squamous mucosa and endometrial glands; negative for dysplasia and carcinoma. C. Endocervix, LEEP: Benign endocervical glands and transformation zone mucosa; negative for dysplasia and carcinoma. D. Post-cone endocervix, curettage: Benign endocervical glands and inactive endometrium; negative for neoplasia and carcinoma. See description [facility] Medical History (Updated 10/25/25 @ 13:48 by Gato Muniz MD) ABELARDO II (cervical intraepithelial neoplasia II) History of suicidal behavior (05/29/23) Alpha thalassemia trait (12/16/21) Chronic post-traumatic stress disorder (PTSD) Surgical History Hx of abdominoplasty Hx of tubal ligation Family History Mother Diabetes HTN (hypertension) Kidney failure Father High cholesterol COPD (chronic obstructive pulmonary disease) Social History Household Members: Spouse and Children Housing: House Do you presently have visiting nurse or other home services: No Alcohol intake: current Alcohol intake frequency: holidays/special occasions only Patient Tobacco Use Status: Never used Tobacco e-Cigarette/Vaping Use: Never Used Second Hand Smoke Exposure: No service: No Current occupational status: disabled Current occupation: disabled for psychiatric concerns Sexual orientation: Straight/Heterosexual Gender identity: Female Cognitive needs: No Hearing needs: No Vision needs: No Female Reproductive History Menstrual Age of Menarche: 14 Duration of menses: 3-5 days Date of last menstrual period: 10/06/25 control method: permanent sterilization Review of Systems Const All systems reviewed & are unremarkable except as noted in HPI and below Reports as per HPI and Reports no additional complaints GI Reports no additional complaints Reports no additional complaints Physical Exam Vital Signs: Last Vital Signs BP 116/74 10/25/25 13:31 BMI result Body Mass Index 25.7 Assessment & Plan Assessment & Plan (1) ABELARDO II (cervical intraepithelial neoplasia II): Comment: 07/03 [facility]IL HPV negative, biopsy ABELARDO 2, LEEP cone with post cone ECC pathology negative Code(s): N87.1 - Moderate cervical dysplasia Category: Medical Plan: Discussed with the patient the results the pathology of the excisional specimen being negative, explained that the the patient that a completely negative excisional specimen raises the concern that the lesion was missed , in addition discussed with the patient that the risk of recurrent cervical dysplasia is significantly higher and can occur years after treatment, the meantime to recurrence is around 4 years and therefore , the recommended management is similar to those with positive margins, specifically in patients who are not interested in future fertility (the patient is status post sterilization), options of treatment include either repeat LEEP cone with post cone ECC or observation with HPV based testing/colposcopy and ECC at 6 months. All pros and cons, risks and benefits of each were discussed with the patient, the patient decided to schedule a six-months repeat co testing/colpo/biopsy/ECC. Instructions given the patient to schedule a six-month appointment for co testing/colpo/biopsy/ECC. All questions answered, the patient verbalized understanding Coding Level of Care Code Est Pt Level 3 (73519) Diagnoses ABELARDO II (cervical intraepithelial neoplasia II) N87.1
[2025-10-25 13:31] VITALS: BP 116/74; BMI 25.7
--- OUTSIDE RECORDS SUMMARY | 2025-10-25 17:24 | XMS_ITS | Clinical Summary ---
Author Organization [facility] ity Address [address] [place] [address] Care Team Providers Care Community Service Coordinator Name Role Phone David Solis MD Primary [...] on file Sexual Orientation Not on file Last Filed Vital Signs [...] Maintenance Results * Depression Screening (04/27/2024) Pathologist Count includes the [facility] Depression Screening Abstracted Historical Provider HEALTH MAINTENANCE Final Result * HIV Screening (12/12/2021) [facility] HIV Screening Abstracted [facility] Provider HEALTH MAINTENANCE Final Result * (ABNORMAL) Lipid panel (12/12/2021) [facility] LDL/HDL Ratio 2 0 - 4 Triglycerides 35 0 - 150 mg/dL Cholesterol 217(A) 0 - 200 mg/dL HDL 94 >=40 mg/dL LDL Cholesterol 116(A) 0 - 100 mg/dL Blood Venous blood specimen / Unknown Historical Provider LAB BLOOD ORDERABLES Lena l Result from Last 3 Months or Most Recently Relevant to Health Maintenance Care Teams Community Service Coordinator Relationship Specialty Start Date End Date David Solis MD [address] [place] [id number] [facility] - General 05/22/23
== END 2025-10-25 13:52 | disposition home or self-care (01) ==
LOC: HO.HWS 13:13
PROVIDERS: Visit Provider Obstetrics & Gynecology
DX: N87.1 Moderate cervical dysplasia (principal)
CPT/HCPCS: 99213

== ENCOUNTER → 2025-10-25 13:12 | Outpatient (BNVA) | payer MEDICARE, MEDICAID, SELFPAY | PROVIDERS: Visit Provider Obstetrics & Gynecology | DX: Z71.2 Person consulting for explanation of examination or test findings (principal); N87.1 Moderate cervical dysplasia | CPT/HCPCS: 99212 ==